=== PATIENT | female | born 1975 | race Caucasian/White ===

== ENCOUNTER 2018-05-26 18:56 | Inpatient (IN) ==
[2018-05-26] MEDS ORDERED: 0.9 % Sodium Chloride 1,000 ML IVC ONE (19:49)
[2018-05-26] MEDS ORDERED: *HR* Morphine 2 MG/ML SYRINGE IVP ONE (20:31)
--- NOTE | 2018-05-26 20:32 | Emergency Department Note ---
Disposition Clinical Impression: Elevated bilirubin Abdominal pain Qualifiers: Abdominal location: generalized Qualified Code(s): R10.84 - Generalized abdominal pain Ascites Qualifiers: Ascites type: other type Qualified Code(s): R18.8 - Other ascites Disposition: Admitted As Inpatient Condition: Good Referrals: Sonny Velazco DO [Primary Care Provider] - Forms: ED Satisfaction Letter, Work/School Release Time of Disposition: 01:13 General Adult HPI - General Chief complaint: ED Abdominal Pain Stated complaint: ABD Fluid ,Vomiting,Diahrrea Time Seen by Provider: 05/26/18 19:49 Source: patient Limitations: no limitations Nursing Notes Reviewed: Yes Vital Signs Reviewed: Yes - History of Present Illness HPI Narrative: I have reperformed and reviewed the history documented by the medical student, and I confirm its accuracy except as noted below. Ms. Lynn is a 43 yo F with a past history of excessive ETOH use and gastric bypass presents with 2-3 month of painless jaundice with intermittent N/V and 4 days of abd pain and distension. She states that she was unaware that she was jaundice. States that she never looked in the year. The mother is at bedside reporting that she has been jaundiced for several months. Patient states that her abdominal pain did not start until recently. She describes the abd pain as diffuse in nature that worse with movement and inspiration. She states that for the last month nearly every attempt to take PO food or liquid is followed by N/ V. Additional symptoms include a productive cough that produces green mucus, subjective fevers and lightheadedness. She states that her urine output has decreased and has become mildly constipated. She denies hematauria, hematachezia , diahrrea, and objective fevers. Additionally, she states that about a month ago she quit drinking cold turkey which led to a seizure. She states that she has been sober since. Pain Scale: 10 - Related Data Previous Rx's Medication Instructions Recorded Clotrimazole 1% CRM [Lotrimin 1%] 1 appl TP BID #1 tube 07/25/17 Allergies Allergy/AdvReac Type Severity Reaction Status Date / Time No Known Allergies Allergy Verified 07/25/17 10:49 All systems ED: reviewed and negative except as stated. Review of Systems: As Per HPI Constitutional: Reports: fever (Subjective), chills ENT ED: Denies: congestion Cardiovascular: Denies: chest pain Respiratory: Denies: cough, dyspnea Gastrointestinal: Reports: abdominal pain, nausea, vomiting. Denies: diarrhea, hematemesis, melena, hematochezia Genitourinary: Reports: frequency (Decreased). Denies: urgency, hematuria Musculoskeletal: Denies: back pain, neck pain Integumentary: Denies: rash Neurological: Reports: weakness. Denies: headache Past Medical History - Past Medical History Attestation: Yes The following information was validated with the patient. Medical history: Reports: seizures Surgical history: Reports: non-contributory Psychiatric history: Reports: anxiety - Social History Smoking Status: Current every day smoker Alcohol use: Reports: occasionally Drug use: Reports: none Physical Exam - General Limitations: no limitations General appearance: alert, in no apparent distress - Head Head exam: atraumatic, normocephalic, normal inspection - Eye Eye exam: Present: normal appearance, PERRL, EOMI, scleral icterus. Absent: conjunctival injection - ENT ENT exam: normal exam, normal oropharynx, mucous membranes moist - Neck Neck exam: Present: normal inspection, full ROM, trachea midline - Chest Chest inspection: Present: normal inspection, symmetric chest wall rise. Absent : tenderness - Respiratory Respiratory exam: Present: normal lung sounds bilaterally. Absent: respiratory distress, accessory muscle use - Cardiovascular Cardiovascular exam: Present: normal rhythm, tachycardia, normal heart sounds - Abdominal Exam Abdominal exam: Present: soft, tenderness (Develop an IO), distention, guarding , organomegaly (Hepatomegaly), other (Present fluid wave). Absent: rigidity - Extremities Exam Extremities exam: Present: normal inspection, full ROM, normal capillary refill. Absent: tenderness, pedal edema - Back Exam Back exam: Present: normal inspection, full ROM. Absent: tenderness - Neurological Exam Neurological exam: Present: alert, oriented X3 - Psychiatric Psychiatric exam: Present: normal affect, normal mood - Skin Skin exam: Present: warm, dry, intact, other (Jaundiced). Absent: rash, cyanosis Course Course Narrative: Female patient is grossly jaundiced. She states that she did not realize that she was jaundiced that she never looks in the mirror. Mother is at bedside stating that the patient is a heavy drinker. She states that she then she has been jaundiced for the past 2-3 months. Patient states that she has an abdominal pain. Patient's abdomen is distended and rounded. It is not peritoneal however she does have pain to palpation. Not rigid. She does have a fluid wave present. On bedside ultrasound patient did have a enlarged liver. Common bile duct was within normal limits. We did send patient for an initial upper right upper quadrant ultrasound however due to extensive bowel gas her pancreas was not visualized. We ended up getting a CT of patient's abdomen. This was also unable to visualize the pancreas. Patient does have a moderate amount of ascites and subcapsular fluid to her liver area. She is not febrile while here. She does have an elevated white blood cell count elevated lactic acid. She was provided with a liter of fluid. We did admit patient to the hospitalist who requested an ammonia level. We have ordered this as well. - Reevaluation(s) Reevaluation #1: Patient's mother left the room. She states that while the patient was on ultrasound she did find a gallon bottle of vodka in her purse. We have had security remove this. It truly was a gallon bottle of vodka. Time: 23:23 (\) Vital Signs Temperature 98.4 F 05/26/18 19:27 Pulse Rate 136 05/26/18 19:27 Respiratory Rate 20 05/26/18 19:27 Blood Pressure 104/71 05/26/18 19:27 O2 Sat by Pulse Oximetry 100 05/26/18 19:27 Temperature 98.4 F 05/26/18 19:27 Pulse Rate 114 05/27/18 00:01 Respiratory Rate 14 05/27/18 00:01 Blood Pressure 121/97 05/27/18 00:01 O2 Sat by Pulse Oximetry 100 05/27/18 00:01 Oxygen Delivery Oxygen Delivery Room Air Medical Decision Making - Medical Records Medical records reviewed: Yes I reviewed the patient's medical records. - Lab Data Lab results reviewed: Yes I reviewed the patient's lab results. Result diagrams: 05/26/18 20:42 05/26/18 20:42 Lab Results 05/26/18 05/26/18 05/26/18 Range/Units 20:42 20:42 20:42 WBC 21.9 H (4.3-11.1) K/mcL RBC 3.91 (3.82-4.97) M/mcL Hgb 12.7 (11.5-15.4) g/dL Hct 39.9 (35.3-44.9) % MCV 102.0 H (83.0-100.0) fL MCH 32.5 (28.0-33.3) pg MCHC 31.8 (31.6-35.5) g/dL RDW 25.7 H (11.5-14.5) % Plt Count 296 (140-400) K/mcL MPV 10.1 (9.4-12.4) fL Immature Gran % 1.0 (0-4) % Seg Neutrophils % 82.1 % Lymphocytes % 7.5 % Monocytes % 8.6 % Eosinophils % 0.4 % Basophils % 0.4 % Neutrophils # 18.0 H (1.6-8.9) K/mcL Lymphocytes # 1.6 (0.6-4.6) K/mcL Monocytes # 1.9 H (0.0-1.3) K/mcL Eosinophils # 0.1 (0.0-0.6) K/mcL Basophils # 0.1 (0.0-0.2) K/mcL Nucleated RBCs/100 WBC 0.1 H (0) /100 WBC Reactive Lymphocytes Present A (Not Present) Smudge Cells Present A (Not Present) Toxic Granulation Present A (Not Present) Platelet Estimate Normal (Normal) Anisocytosis 2+ A (Not Present) Macrocytosis Present A (Not Present) PT 15.3 H (9.4-12.1) Seconds INR 1.4 APTT 34.2 (26.0-36.0) Seconds Sodium 131 L (136-145) mEq/L Potassium 3.0 L (3.5-5.1) mEq/L Chloride 97 L (98-107) mEq/L Carbon Dioxide 20 L (23-29) mEq/L BUN 3 L (6-20) mg/dL Creatinine 0.54 L (0.60-1.20) mg/dL Est GFR ( Amer) > 60 (> 60) Est GFR (Non-Af Amer) > 60 (> 60) BUN/Creatinine Ratio 6 (6-26) Glucose 112 H (70-105) mg/dL Calculated Osmolality 269 L (280-300) Lactic Acid (0.5-2.2) mmol/L Calcium 8.0 L (8.6-10.3) mg/dL Total Bilirubin 14.5 H (0.3-1.0) mg/dL Direct Bilirubin 9.2 H (0.0-0.2) mg/dL Indirect Bilirubin 5.3 H (0.0-1.2) mg/dL AST 186 H (13-39) Units/L ALT 63 H (7-52) Units/L Alkaline Phosphatase 318 H (34-104) Units/L Serum Total Protein 5.8 L (6.4-8.9) g/dL Albumin 2.5 L (3.5-5.7) g/dL Globulin 3.3 (2.4-3.5) g/dL Albumin/Globulin Ratio 0.8 L (1.1-2.2) Lipase 60 (11-82) Units/L Ur Specimen Adequacy Urine Color (Yellow) Urine Clarity (Clear) Urine pH Ur Specific [place] Urine Protein Urine Glucose (UA) Urine Ketones Urine Blood Urine Nitrite Urine Bilirubin Urine Urobilinogen Ur Leukocyte Esterase Urine Microscopic RBC (0-3) per hpf Urine Microscopic WBC (0-3) per hpf Ur Squamous Epith Cells (None-Few) per lpf Urine Bacteria (None-Few) per hpf Hyaline Casts (None-Few) per lpf Urine Mucus (Few) Urine Trichomonas (None Seen) Ur Culture Indicated? (NO) Urine Test (Negative) Hepatitis A IgM Ab (Nonreactive) Hep Bs Antigen (Nonreactive) Hep B Core IgM Ab (Nonreactive) Hepatitis C Ab Screen (Nonreactive) 05/26/18 05/26/18 05/26/18 Range/Units 20:42 20:47 22:56 WBC (4.3-11.1) K/mcL RBC (3.82-4.97) M/mcL Hgb (11.5-15.4) g/dL Hct (35.3-44.9) % MCV (83.0-100.0) fL MCH (28.0-33.3) pg MCHC (31.6-35.5) g/dL RDW (11.5-14.5) % Plt Count (140-400) K/mcL MPV (9.4-12.4) fL Immature Gran % (0-4) % Seg Neutrophils % % Lymphocytes % % Monocytes % % Eosinophils % % Basophils % % Neutrophils # (1.6-8.9) K/mcL Lymphocytes # (0.6-4.6) K/mcL Monocytes # (0.0-1.3) K/mcL Eosinophils # (0.0-0.6) K/mcL Basophils # (0.0-0.2) K/mcL Nucleated RBCs/100 WBC (0) /100 WBC Reactive Lymphocytes (Not Present) Smudge Cells (Not Present) Toxic Granulation (Not Present) Platelet Estimate (Normal) Anisocytosis (Not Present) Macrocytosis (Not Present) PT (9.4-12.1) Seconds INR APTT (26.0-36.0) Seconds Sodium (136-145) mEq/L Potassium (3.5-5.1) mEq/L Chloride (98-107) mEq/L Carbon Dioxide (23-29) mEq/L BUN (6-20) mg/dL Creatinine (0.60-1.20) mg/dL Est GFR ( Amer) (> 60) Est GFR (Non-Af Amer) (> 60) BUN/Creatinine Ratio (6-26) Glucose (70-105) mg/dL Calculated Osmolality (280-300) Lactic Acid 6.7 H* (0.5-2.2) mmol/L Calcium (8.6-10.3) mg/dL Total Bilirubin (0.3-1.0) mg/dL Direct Bilirubin (0.0-0.2) mg/dL Indirect Bilirubin (0.0-1.2) mg/dL AST (13-39) Units/L ALT (7-52) Units/L Alkaline Phosphatase (34-104) Units/L Serum Total Protein (6.4-8.9) g/dL Albumin (3.5-5.7) g/dL Globulin (2.4-3.5) g/dL Albumin/Globulin Ratio (1.1-2.2) Lipase (11-82) Units/L Ur Specimen Adequacy See below A Urine Color [place] A (Yellow) Urine Clarity Cloudy A (Clear) Urine pH TNP Ur Specific [place] TNP Urine Protein TNP Urine Glucose (UA) TNP Urine Ketones TNP Urine Blood TNP Urine Nitrite TNP Urine Bilirubin TNP Urine Urobilinogen TNP Ur Leukocyte Esterase TNP Urine Microscopic RBC 30-50 H (0-3) per hpf Urine Microscopic WBC 50-100 H (0-3) per hpf Ur Squamous Epith Cells Many H (None-Few) per lpf Urine Bacteria Many H (None-Few) per hpf Hyaline Casts None Seen (None-Few) per lpf Urine Mucus Few (Few) Urine Trichomonas Present A (None Seen) Ur Culture Indicated? NO (NO) Urine Test (Negative) Hepatitis A IgM Ab Nonreactive (Nonreactive) Hep Bs Antigen Nonreactive (Nonreactive) Hep B Core IgM Ab Nonreactive (Nonreactive) Hepatitis C Ab Screen Nonreactive (Nonreactive) 05/26/18 Range/Units 22:56 WBC (4.3-11.1) K/mcL RBC (3.82-4.97) M/mcL Hgb (11.5-15.4) g/dL Hct (35.3-44.9) % MCV (83.0-100.0) fL MCH (28.0-33.3) pg MCHC (31.6-35.5) g/dL RDW (11.5-14.5) % Plt Count (140-400) K/mcL MPV (9.4-12.4) fL Immature Gran % (0-4) % Seg Neutrophils % % Lymphocytes % % Monocytes % % Eosinophils % % Basophils % % Neutrophils # (1.6-8.9) K/mcL Lymphocytes # (0.6-4.6) K/mcL Monocytes # (0.0-1.3) K/mcL Eosinophils # (0.0-0.6) K/mcL Basophils # (0.0-0.2) K/mcL Nucleated RBCs/100 WBC (0) /100 WBC Reactive Lymphocytes (Not Present) Smudge Cells (Not Present) Toxic Granulation (Not Present) Platelet Estimate (Normal) Anisocytosis (Not Present) Macrocytosis (Not Present) PT (9.4-12.1) Seconds INR APTT (26.0-36.0) Seconds Sodium (136-145) mEq/L Potassium (3.5-5.1) mEq/L Chloride (98-107) mEq/L Carbon Dioxide (23-29) mEq/L BUN (6-20) mg/dL Creatinine (0.60-1.20) mg/dL Est GFR ( Amer) (> 60) Est GFR (Non-Af Amer) (> 60) BUN/Creatinine Ratio (6-26) Glucose (70-105) mg/dL Calculated Osmolality (280-300) Lactic Acid (0.5-2.2) mmol/L Calcium (8.6-10.3) mg/dL Total Bilirubin (0.3-1.0) mg/dL Direct Bilirubin (0.0-0.2) mg/dL Indirect Bilirubin (0.0-1.2) mg/dL AST (13-39) Units/L ALT (7-52) Units/L Alkaline Phosphatase (34-104) Units/L Serum Total Protein (6.4-8.9) g/dL Albumin (3.5-5.7) g/dL Globulin (2.4-3.5) g/dL Albumin/Globulin Ratio (1.1-2.2) Lipase (11-82) Units/L Ur Specimen Adequacy Urine Color (Yellow) Urine Clarity (Clear) Urine pH Ur Specific [place] Urine Protein Urine Glucose (UA) Urine Ketones Urine Blood Urine Nitrite Urine Bilirubin Urine Urobilinogen Ur Leukocyte Esterase Urine Microscopic RBC (0-3) per hpf Urine Microscopic WBC (0-3) per hpf Ur Squamous Epith Cells (None-Few) per lpf Urine Bacteria (None-Few) per hpf Hyaline Casts (None-Few) per lpf Urine Mucus (Few) Urine Trichomonas (None Seen) Ur Culture Indicated? (NO) Urine Test Negative (Negative) Hepatitis A IgM Ab (Nonreactive) Hep Bs Antigen (Nonreactive) Hep B Core IgM Ab (Nonreactive) Hepatitis C Ab Screen (Nonreactive) - Radiology Data Radiology results reviewed: Yes I reviewed the patient's radiology results. Gallbladder Ultrasound 05/26/18 19:57 IMPRESSION: 1. Fatty liver versus diffuse hepatocellular disease with right upper quadrant ascites. 2. No cholelithiasis or sonographic evidence for acute cholecystitis. 3. Nonvisualization of the pancreas. D/ / Austin Malik MD / Austin Malik MD Interpreting Provider: Austin Malik MD Chest X-Ray 05/26/18 20:17 IMPRESSION: No acute abnormality. D/ / Chino Trevino MD / Chino Trevino MD Interpreting Provider: Chino Trevino MD Abdomen/Pelvis CT 05/26/18 21:19 IMPRESSION: Moderate volume ascites. Gastroplasty changes. Hepatic steatosis. D/ / Manav Dobbins / Manav Dobbins Interpreting Provider: Manav Dobbins - EKG Data EKG #1 EKG attestation: Yes I reviewed and interpreted this EKG. EKG results narrative: Sinus tachycardia at a rate of 110. RI interval is 1:30. QRS duration is 88. QT is 367. QTC is 497. No signs of acute ischemia. Patient does have flattened T waves. No significant change from previous EKG dated 04/09/2018.
[2018-05-26 20:55] LABS: Basophils # 0.1 K/mcL (0.0-0.2); Basophils % 0.4 %; Eosinophils # 0.1 K/mcL (0.0-0.6); Eosinophils % 0.4 %; Hematocrit 39.9 % (35.3-44.9); Hemoglobin 12.7 g/dL (11.5-15.4); Lymphocytes % 7.5 %; Mean Corpuscular HGB Conc 31.8 g/dL (31.6-35.5); Mean Corpuscular Hemoglobin 32.5 pg (28.0-33.3); Mean Platelet Volume 10.1 fL (9.4-12.4); Monocytes # 1.9 K/mcL (0.0-1.3); Monocytes % 8.6 %; Nucleated Red Blood Cells 0.1 /100 WBC (0); Platelet Count 296 K/mcL (140-400); Red Blood Count 3.91 M/mcL (3.82-4.97); Red Cell Distribution Width 25.7 % (11.5-14.5); Segmented Neutrophils % 82.1 %
[2018-05-26 21:01] LABS: INR 1.4; Prothrombin Time 15.3 Seconds (9.4-12.1)
[2018-05-26 21:02] LABS: Lymphocytes # 1.6 K/mcL (0.6-4.6)
[2018-05-26 21:03] LABS: Activated Partial Thrombo Time 34.2 Seconds (26.0-36.0)
[2018-05-26 21:18] LABS: Anisocytosis 2+ (Not Present); Macrocytosis Present (Not Present); Platelet Estimate Normal (Normal); Reactive Lymphocytes Present (Not Present); Smudge Cells Present (Not Present); Toxic Granulation Present (Not Present)
[2018-05-26 21:25] LABS: Alanine Aminotransferase 63 Units/L (7-52); Albumin 2.5 g/dL (3.5-5.7); Albumin/Globulin Ratio 0.8 (1.1-2.2); Alkaline Phosphatase 318 Units/L (34-104); Aspartate Amino Transferase 186 Units/L (13-39); BUN/Creatinine Ratio 6 (6-26); Bilirubin,Direct 9.2 mg/dL (0.0-0.2); Bilirubin,Indirect 5.3 mg/dL (0.0-1.2); Bilirubin,Total 14.5 mg/dL (0.3-1.0); Blood Urea Nitrogen 3 mg/dL (6-20); Carbon Dioxide 20 mEq/L (23-29); Chloride 97 mEq/L (98-107); Globulin 3.3 g/dL (2.4-3.5); Glucose 112 mg/dL (70-105); Lipase 60 Units/L (11-82); Osmolality,Calculated 269 (280-300); Sodium 131 mEq/L (136-145); Total Protein 5.8 g/dL (6.4-8.9); eGFR For Non-African Americans > 60 (> 60)
[2018-05-26] MEDS ORDERED: Potassium Chloride Elixir 20 MEQ/15 ML UDC PO ONE (21:29)
[2018-05-26 21:38] LABS: Hepatitis A Antibody IgM Nonreactive (Nonreactive); Hepatitis B Core IgM Nonreactive (Nonreactive); Hepatitis B Surface Antigen Nonreactive (Nonreactive); Hepatitis C Virus Antibody Nonreactive (Nonreactive)
[2018-05-26] MEDS ORDERED: Ondansetron 4 MG/2 ML VIAL ONE (22:01)
[2018-05-26] MEDS ORDERED: *HR* Promethazine 25 MG/ML VIAL IVP ONE (22:03)
[2018-05-26 23:18] LABS: Clarity,Urine Cloudy (Clear); Color,Urine Amber (Yellow)
[2018-05-26 23:22] LABS: Bacteria,Urine Many per hpf (None-Few); RBC,Urine 30-50 per hpf (0-3); Squamous Epithelial Cell,Urine Many per lpf (None-Few); WBC,Urine 50-100 per hpf (0-3)
[2018-05-26 23:23] LABS: Hyaline Casts,Urine None Seen per lpf (None-Few); Mucus,Urine Few (Few); Trichomonas,Urine Present (None Seen)
--- NOTE | 2018-05-27 00:31 | Emergency Department Note ---
Disposition Clinical Impression: Elevated bilirubin Abdominal pain Qualifiers: Abdominal location: generalized Qualified Code(s): R10.84 - Generalized abdominal pain Ascites Qualifiers: Ascites type: due to alcoholic hepatitis Qualified Code(s): K70.11 - Alcoholic hepatitis with ascites Disposition: Admitted As Inpatient Condition: Good General Adult HPI - General Chief complaint: ED Abdominal Pain Stated complaint: ABD Fluid ,Vomiting,Diahrrea Time Seen by Provider: 05/26/18 19:49 Source: patient Limitations: no limitations - History of Present Illness Pain Scale: 10 - Related Data Home Medications Medication Instructions Recorded Confirmed Albuterol Sulfate [Proair Hfa] 2 puff IH Q4-6H PRN 05/27/18 05/27/18 Previous Rx's Medication Instructions Recorded Furosemide [Lasix] 20 mg PO BIDDIURETIC #60 tab 06/01/18 Spironolactone [Aldactone] 25 mg PO DAILY #30 tablet 06/01/18 Allergies Allergy/AdvReac Type Severity Reaction Status Date / Time No Known Allergies Allergy Verified 05/27/18 08:03 Constitutional: Reports: fever (Subjective), chills ENT ED: Denies: congestion Cardiovascular: Denies: chest pain Respiratory: Denies: cough, dyspnea Past Medical History - Past Medical History Medical history: Reports: seizures Surgical history: Reports: non-contributory Psychiatric history: Reports: anxiety - Social History Smoking Status: Current every day smoker Alcohol use: Reports: occasionally Drug use: Reports: none Physical Exam - General Limitations: no limitations General appearance: alert, in no apparent distress Course Vital Signs Temperature 98.4 F 05/26/18 19:27 Pulse Rate 136 05/26/18 19:27 Respiratory Rate 20 05/26/18 19:27 Blood Pressure 104/71 05/26/18 19:27 O2 Sat by Pulse Oximetry 100 05/26/18 19:27 Temperature 97.5 F L 06/04/18 06:49 Pulse Rate 105 06/04/18 06:49 Respiratory Rate 14 06/04/18 06:49 Blood Pressure 93/62 06/04/18 06:49 O2 Sat by Pulse Oximetry 100 06/04/18 06:49 Oxygen Delivery Oxygen Delivery Room Air Medical Decision Making - Lab Data Result diagrams: 06/04/18 05:21 06/04/18 05:21 Lab Results 05/26/18 05/26/18 05/26/18 Range/Units 20:42 20:42 20:42 WBC 21.9 H (4.3-11.1) K/mcL RBC 3.91 (3.82-4.97) M/mcL Hgb 12.7 (11.5-15.4) g/dL Hct 39.9 (35.3-44.9) % MCV 102.0 H (83.0-100.0) fL MCH 32.5 (28.0-33.3) pg MCHC 31.8 (31.6-35.5) g/dL RDW 25.7 H (11.5-14.5) % Plt Count 296 (140-400) K/mcL MPV 10.1 (9.4-12.4) fL Immature Gran % 1.0 (0-4) % Seg Neutrophils % 82.1 % Lymphocytes % 7.5 % Monocytes % 8.6 % Eosinophils % 0.4 % Basophils % 0.4 % Neutrophils # 18.0 H (1.6-8.9) K/mcL Lymphocytes # 1.6 (0.6-4.6) K/mcL Monocytes # 1.9 H (0.0-1.3) K/mcL Eosinophils # 0.1 (0.0-0.6) K/mcL Basophils # 0.1 (0.0-0.2) K/mcL Nucleated RBCs/100 WBC 0.1 H (0) /100 WBC Reactive Lymphocytes Present A (Not Present) Smudge Cells Present A (Not Present) Toxic Granulation Present A (Not Present) Platelet Estimate Normal (Normal) Anisocytosis 2+ A (Not Present) Macrocytosis Present A (Not Present) PT 15.3 H (9.4-12.1) Seconds INR 1.4 APTT 34.2 (26.0-36.0) Seconds Sodium 131 L (136-145) mEq/L Potassium 3.0 L (3.5-5.1) mEq/L Chloride 97 L (98-107) mEq/L Carbon Dioxide 20 L (23-29) mEq/L BUN 3 L (6-20) mg/dL Creatinine 0.54 L (0.60-1.20) mg/dL Est GFR ( Amer) > 60 (> 60) Est GFR (Non-Af Amer) > 60 (> 60) BUN/Creatinine Ratio 6 (6-26) Glucose 112 H (70-105) mg/dL Calculated Osmolality 269 L (280-300) Lactic Acid (0.5-2.2) mmol/L Calcium 8.0 L (8.6-10.3) mg/dL Total Bilirubin 14.5 H (0.3-1.0) mg/dL Direct Bilirubin 9.2 H (0.0-0.2) mg/dL Indirect Bilirubin 5.3 H (0.0-1.2) mg/dL AST 186 H (13-39) Units/L ALT 63 H (7-52) Units/L Alkaline Phosphatase 318 H (34-104) Units/L Serum Total Protein 5.8 L (6.4-8.9) g/dL Albumin 2.5 L (3.5-5.7) g/dL Globulin 3.3 (2.4-3.5) g/dL Albumin/Globulin Ratio 0.8 L (1.1-2.2) Lipase 60 (11-82) Units/L Ur Specimen Adequacy Urine Color (Yellow) Urine Clarity (Clear) Urine pH Ur Specific [place] Urine Protein Urine Glucose (UA) Urine Ketones Urine Blood Urine Nitrite Urine Bilirubin Urine Urobilinogen Ur Leukocyte Esterase Urine Microscopic RBC (0-3) per hpf Urine Microscopic WBC (0-3) per hpf Ur Squamous Epith Cells (None-Few) per lpf Urine Bacteria (None-Few) per hpf Hyaline Casts (None-Few) per lpf Urine Mucus (Few) Urine Trichomonas (None Seen) Ur Culture Indicated? (NO) Urine Test (Negative) Hepatitis A IgM Ab (Nonreactive) Hep Bs Antigen (Nonreactive) Hep B Core IgM Ab (Nonreactive) Hepatitis C Ab Screen (Nonreactive) 05/26/18 05/26/18 05/26/18 Range/Units 20:42 20:47 22:56 WBC (4.3-11.1) K/mcL RBC (3.82-4.97) M/mcL Hgb (11.5-15.4) g/dL Hct (35.3-44.9) % MCV (83.0-100.0) fL MCH (28.0-33.3) pg MCHC (31.6-35.5) g/dL RDW (11.5-14.5) % Plt Count (140-400) K/mcL MPV (9.4-12.4) fL Immature Gran % (0-4) % Seg Neutrophils % % Lymphocytes % % Monocytes % % Eosinophils % % Basophils % % Neutrophils # (1.6-8.9) K/mcL Lymphocytes # (0.6-4.6) K/mcL Monocytes # (0.0-1.3) K/mcL Eosinophils # (0.0-0.6) K/mcL Basophils # (0.0-0.2) K/mcL Nucleated RBCs/100 WBC (0) /100 WBC Reactive Lymphocytes (Not Present) Smudge Cells (Not Present) Toxic Granulation (Not Present) Platelet Estimate (Normal) Anisocytosis (Not Present) Macrocytosis (Not Present) PT (9.4-12.1) Seconds INR APTT (26.0-36.0) Seconds Sodium (136-145) mEq/L Potassium (3.5-5.1) mEq/L Chloride (98-107) mEq/L Carbon Dioxide (23-29) mEq/L BUN (6-20) mg/dL Creatinine (0.60-1.20) mg/dL Est GFR ( Amer) (> 60) Est GFR (Non-Af Amer) (> 60) BUN/Creatinine Ratio (6-26) Glucose (70-105) mg/dL Calculated Osmolality (280-300) Lactic Acid 6.7 H* (0.5-2.2) mmol/L Calcium (8.6-10.3) mg/dL Total Bilirubin (0.3-1.0) mg/dL Direct Bilirubin (0.0-0.2) mg/dL Indirect Bilirubin (0.0-1.2) mg/dL AST (13-39) Units/L ALT (7-52) Units/L Alkaline Phosphatase (34-104) Units/L Serum Total Protein (6.4-8.9) g/dL Albumin (3.5-5.7) g/dL Globulin (2.4-3.5) g/dL Albumin/Globulin Ratio (1.1-2.2) Lipase (11-82) Units/L Ur Specimen Adequacy See below A Urine Color [place] A (Yellow) Urine Clarity Cloudy A (Clear) Urine pH TNP Ur Specific [place] TNP Urine Protein TNP Urine Glucose (UA) TNP Urine Ketones TNP Urine Blood TNP Urine Nitrite TNP Urine Bilirubin TNP Urine Urobilinogen TNP Ur Leukocyte Esterase TNP Urine Microscopic RBC 30-50 H (0-3) per hpf Urine Microscopic WBC 50-100 H (0-3) per hpf Ur Squamous Epith Cells Many H (None-Few) per lpf Urine Bacteria Many H (None-Few) per hpf Hyaline Casts None Seen (None-Few) per lpf Urine Mucus Few (Few) Urine Trichomonas Present A (None Seen) Ur Culture Indicated? NO (NO) Urine Test (Negative) Hepatitis A IgM Ab Nonreactive (Nonreactive) Hep Bs Antigen Nonreactive (Nonreactive) Hep B Core IgM Ab Nonreactive (Nonreactive) Hepatitis C Ab Screen Nonreactive (Nonreactive) 05/26/18 05/27/18 Range/Units 22:56 00:36 WBC (4.3-11.1) K/mcL RBC (3.82-4.97) M/mcL Hgb (11.5-15.4) g/dL Hct (35.3-44.9) % MCV (83.0-100.0) fL MCH (28.0-33.3) pg MCHC (31.6-35.5) g/dL RDW (11.5-14.5) % Plt Count (140-400) K/mcL MPV (9.4-12.4) fL Immature Gran % (0-4) % Seg Neutrophils % % Lymphocytes % % Monocytes % % Eosinophils % % Basophils % % Neutrophils # (1.6-8.9) K/mcL Lymphocytes # (0.6-4.6) K/mcL Monocytes # (0.0-1.3) K/mcL Eosinophils # (0.0-0.6) K/mcL Basophils # (0.0-0.2) K/mcL Nucleated RBCs/100 WBC (0) /100 WBC Reactive Lymphocytes (Not Present) Smudge Cells (Not Present) Toxic Granulation (Not Present) Platelet Estimate (Normal) Anisocytosis (Not Present) Macrocytosis (Not Present) PT (9.4-12.1) Seconds INR APTT (26.0-36.0) Seconds Sodium (136-145) mEq/L Potassium (3.5-5.1) mEq/L Chloride (98-107) mEq/L Carbon Dioxide (23-29) mEq/L BUN (6-20) mg/dL Creatinine (0.60-1.20) mg/dL Est GFR ( Amer) (> 60) Est GFR (Non-Af Amer) (> 60) BUN/Creatinine Ratio (6-26) Glucose (70-105) mg/dL Calculated Osmolality (280-300) Lactic Acid 6.8 H* (0.5-2.2) mmol/L Calcium (8.6-10.3) mg/dL Total Bilirubin (0.3-1.0) mg/dL Direct Bilirubin (0.0-0.2) mg/dL Indirect Bilirubin (0.0-1.2) mg/dL AST (13-39) Units/L ALT (7-52) Units/L Alkaline Phosphatase (34-104) Units/L Serum Total Protein (6.4-8.9) g/dL Albumin (3.5-5.7) g/dL Globulin (2.4-3.5) g/dL Albumin/Globulin Ratio (1.1-2.2) Lipase (11-82) Units/L Ur Specimen Adequacy Urine Color (Yellow) Urine Clarity (Clear) Urine pH Ur Specific [place] Urine Protein Urine Glucose (UA) Urine Ketones Urine Blood Urine Nitrite Urine Bilirubin Urine Urobilinogen Ur Leukocyte Esterase Urine Microscopic RBC (0-3) per hpf Urine Microscopic WBC (0-3) per hpf Ur Squamous Epith Cells (None-Few) per lpf Urine Bacteria (None-Few) per hpf Hyaline Casts (None-Few) per lpf Urine Mucus (Few) Urine Trichomonas (None Seen) Ur Culture Indicated? (NO) Urine Test Negative (Negative) Hepatitis A IgM Ab (Nonreactive) Hep Bs Antigen (Nonreactive) Hep B Core IgM Ab (Nonreactive) Hepatitis C Ab Screen (Nonreactive) Attestation Statement - Attestation Attestation: I examined this patient and my medical decision-making was reviewed with the Resident Physician. I agree with the documented findings, disposition and treatment plan as described except to the extent set forth below. Jaundice originally painless, now with pain. Significant alcohol abuse history. Non-toxic in appearance, mental status normal, converses normally with me. No hypotension. Afebrile here, no infection suspected. I do not suspect SBP. DDx includes choledocholithiasis, alcoholic hepatitis, pancreatic CA. CT not diagnostic. Case reviewed by me with Dr. Davis. He will see pt in consult.
--- NOTE | 2018-05-27 00:49 | Internal Med History&Physical ---
<Ramsey Manriquez - Last Filed: 05/27/18 02:02> Date of Encounter: 05/27/18 Time of Encounter: 00:39 Internal Medicine - H&P: HPI Chief complaint: Abd pain Admitted From: Emergency Dept History of present illness: Ms. Lynn is a 43 year old female with a PMH of gastric bypass surgery, TROY, psoriasis, alcohol withdrawal seizures, alcohol dependence, and tobacco dependence who presented to the ED c/o diffuse abdominal pain, nausea, and vomiting for the past 3 days. Abdominal pain is worse with movement, breathing, and food and liquid intake. Patient reports decreased urination and constipation due to lack of hydration. Associated symptoms include abdominal distension, itching, productive cough with clear phelgm, subjective fevers, and lightheadedness. Family reports increasing jaundiced for the past 3 months. Patient denies hematauria, hematachezia, diarrhea, greasy stools, or change in mental status. She is on house arrest and reports having an alcohol withdrawal seizure one month ago after she was arrested for drunk driving and hitting a mailbox. Patient is reports usually drinking 1-2 glasses of liquor daily and her last drink was this morning. Patient's mother reported finding a gallon bottle of vodka in her daughter's purse while the patient was having her RUQ ultrasound performed, which was removed by security. Past Med Surg Social Fam HX - Past Medical History Medical history: seizures Additional medical history: psoriasis, TROY Psychiatric history: anxiety - Past Surgical History Surgical History: other, bariatric surgery Additional surgical history: gastric bypass 2009, uterine mass and polyp removal 2016 - Social History Smoking Status: Current every day smoker Alcohol use: occasionally, recent Drug use: none Occupational status: other (legal support assistant) Current living situation: Home, With Family Activity Level: Independent ambulation - Family History Father Hx Family Cardiac Disorders: Yes (HTN) Mother Hx Family Cardiac Disorders: Yes (Uterine (precancerous)) Sister Hx Family Neurologic Disorders: Yes ( epilepsy) Hx Family Medical Disorders: Yes (endometriosis, back problem) Grandfather Hx Family Cancer: Yes (Lymphoma, liver CA) Paternal Name: Uncle Hx Family Cancer: Yes (Liver cancer) Internal Medicine - H&P: Meds Clotrimazole 1% CRM [Lotrimin 1%] 1 appl TP BID #1 tube 07/25/17 [Rx] 3 Allergy/AdvReac Type Severity Reaction Status Date / Time No Known Allergies Allergy Verified 07/25/17 10:49 All Systems PM: A 10-system review of systems was performed and is negative for pertinent findings except as documented above in the HPI. - Constitutional Constitutional: anorexia, chills, fatigue, fever(s), lethargy, weakness, weight gain, no weight loss - EENT Eyes: blurry vision, change in vision (chronic), other visual disturbances Nose, mouth and throat: dry mouth, no nasal congestion, no sinus pain, no sore throat - Cardiovascular Cardiovascular ROS IM: dyspnea, lightheadedness, palpitations, no chest pain, no edema - Respiratory Respiratory: cough, dyspnea, excessive phlegm production, no chest congestion - Gastrointestinal Gastrointestinal: abdominal pain, bloating, change in bowel habits, constipation , nausea, vomiting, no diarrhea, no hematemesis, no hematochezia, no melena - Genitourinary Genitourinary: no dysuria, no flank pain, no hematuria, no nocturia, no urinary frequency, no urinary urgency - Musculoskeletal Musculoskeletal ROS IM: no numbness, no tingling - Integumentary Integumentary IM: rash, jaundice - Neurological Neurological ROS: dizziness, weakness, no confusion, no convulsions, no headache (s), no numbness, no tingling, no tremor(s) - Psychiatric Psychiatric: anxiety, no depression - Endocrine Endocrine IM: fatigue, no polydipsia, no polyphagia, no polyuria - Hematologic/Lymphatic Hematologic/Lymphatic: no easy bleeding, no easy bruising - Constitutional Vitals: Temp Pulse Resp BP Pulse Ox 98.4 F 114 14 121/97 100 05/26/18 19:27 05/27/18 00:01 05/27/18 00:01 05/27/18 00:01 05/27/18 00:01 General appearance: Present: cooperative, A&O X 3, pleasant, no acute distress, answers questions appropriately Exam: pleasant, conversant, singultus - Head Head exam: Present: atraumatic, normocephalic - Eye Eye exam: Present: EOMI - Expanded Eye Exam sclera: bilateral: icterus - ENT ENT exam: Present: mucous membranes dry, normal oropharynx - Neck Neck exam general surgery: Present: supple, trachea midline. Absent: lymphadenopathy - Respiratory Respiratory exam: Present: CTAB. Absent: accessory muscle use, rales, respiratory distress, rhonchi, wheezes - Cardiovascular Cardiovascular exam: Present: RRR, +S1, +S2, tachycardia. Absent: diastolic murmur, gallop, rubs, systolic murmur - GI/Abdominal GI/Abdominal exam: Present: normal bowel sounds, soft, tenderness (diffuse, worse RUQ), no peritoneal signs. Absent: distended, guarding - Extremities Exam Extremities exam: Present: warm, radial pulses palpable and symmetrical. Absent : calf tenderness, cyanotic, pedal edema Additional comments: House arrest bracelet on RLE - Back Exam Back exam: Absent: CVA tenderness (L), CVA tenderness (R), paraspinal tenderness , tenderness - Neurological Exam Neurological exam: Present: alert, CN II-XII intact, oriented X3, no focal deficits. Absent: altered, motor sensory deficit, facial droop, speech deficit - Psychiatric Psychiatric exam: Present: normal affect, normal mood - Skin Skin exam: Present: dry, intact. Absent: normal color (jaundice, multiple psoriasis plaques over legs, scalp) Internal Med - H&P Results - Labs CBC & Chem 7: 05/26/18 20:42 05/26/18 20:42 Labs: Short CBC 05/26/18 Range/Units 20:42 WBC 21.9 H (4.3-11.1) K/mcL Hgb 12.7 (11.5-15.4) g/dL Hct 39.9 (35.3-44.9) % Plt Count 296 (140-400) K/mcL Neutrophils # 18.0 H (1.6-8.9) K/mcL BMP 05/26/18 20:42 Sodium 131 L Potassium 3.0 L Chloride 97 L Carbon Dioxide 20 L BUN 3 L Creatinine 0.54 L Glucose 112 H Calcium 8.0 L Liver Function 05/26/18 Range/Units 20:42 Total Bilirubin 14.5 H (0.3-1.0) mg/dL Direct Bilirubin 9.2 H (0.0-0.2) mg/dL AST 186 H (13-39) Units/L ALT 63 H (7-52) Units/L Alkaline Phosphatase 318 H (34-104) Units/L Albumin 2.5 L (3.5-5.7) g/dL Urine 05/26/18 Range/Units 22:56 Urine Color [place] A (Yellow) Urine Clarity Cloudy A (Clear) Urine pH TNP Ur Specific [place] TNP Urine Protein TNP Urine Glucose (UA) TNP - EKG Data -: EKG Interpreted by Myself Rate: tachycardia (rate of 110. [place] interval is 1:30. QRS duration is 88. QT is 367. QTC is 497. Flattened T waves, No signs of acute ischemia.) - EKG Data Prior EKG available for review: yes When compared to previous EKG: there is no significant change - Impressions ITS Impressions Gallbladder Ultrasound 05/26/18 19:57 IMPRESSION: 1. Fatty liver versus diffuse hepatocellular disease with right upper quadrant ascites. 2. No cholelithiasis or sonographic evidence for acute cholecystitis. 3. Nonvisualization of the pancreas. D/ / Austin Malik MD / Austin Malik MD Interpreting Provider: Austin Malik MD Chest X-Ray 05/26/18 20:17 IMPRESSION: No acute abnormality. D/ / Chino Trevino MD / Chino Trevino MD Interpreting Provider: Chino Trevino MD Abdomen/Pelvis CT 05/26/18 21:19 IMPRESSION: Moderate volume ascites. Gastroplasty changes. Hepatic steatosis. D/ / Manav Dobbins / Manav Dobbins Interpreting Provider: Manav Dobbins - Assessment and plan (1) Obstructive jaundice Current Visit: Yes Status: Acute Assessment and plan: Patient with RUQ pain, ascites, jaundice, elevated bilirubin and LFTs, afebrile , tachycardia, leukocytosis WBC 21.9, Lactic acidosis 6.7 Differential diagnosis includes choledocholithiasis, alcoholic hepatitis, pancreatic CA, SBP Gallbladder ultrasound revealed fatty liver versus diffuse hepatocellular disease with right upper quadrant ascites. No cholelithiasis or sonographic evidence for acute cholecystitis. CT Abdomen/Pelvis revealed moderate volume ascites, gastroplasty changes, and hepatic steatosis. Started emperic Zosyn for possible SBP NPO for possible ERCP procedure in AM Continue analgesics and antiemetics GI consulted, ED physician discussed case with Dr. Davis (2) Severe sepsis Current Visit: Yes Status: Acute Assessment and plan: Patient met sepsis criteria with leukocytosis WBC 21.9, tachycardia HR 136, Lactic acidosis 6.7, and SBP as possible source of infection Repeat lactic acid level 6.8 Patient received sepsis IVF bolus in the ED Given current ascites and hypoalbuminemia, will give Albumin x1 and additional IVF Monitor strict I&Os Repeat UA due to cantamination/ large amount of squamous cells in previously collected sample Blood cultures pending Started empiric Zosyn for possible SBP Continue close monitoring (3) Increased ammonia level Current Visit: Yes Status: Acute Assessment and plan: Ammonia level 58, started Lactulose 30mg RC (4) Hypoalbuminemia Current Visit: Yes Status: Acute Assessment and plan: Albumin level 2.5 in the setting of poor nutrition, alcoholism, and history of gastric bypass surgery Patient has ascites, will give Albumin x1 and continue IVF for severe sepsis (5) Alcohol dependence Current Visit: Yes Status: Chronic Assessment and plan: Patient reports last drink was this morning. Patient's mother reported finding a gallon bottle of vodka in her daughter's purse while the patient was having her RUQ ultrasound performed, which was removed by security. Qualifiers: Substance use status: unspecified alcohol-induced disorder Qualified Code(s ): F10.29 - Alcohol dependence with unspecified alcohol-induced disorder (6) Alcohol withdrawal seizure Current Visit: No Status: Chronic Assessment and plan: Misael reports having a seizure one month ago due to alcohol withdrawal, alcohol level pending Continue Ativan per [facility] protocol Aspiration precautions Qualifiers: Complication of substance-induced condition: uncomplicated Qualified Code(s ): F10.230 - Alcohol dependence with withdrawal, uncomplicated (7) History of gastric bypass Current Visit: No Status: Chronic Assessment and plan: Patient has many dietary constraints since gastric bypass. Continue monitoring (8) Hypokalemia Current Visit: Yes Status: Acute Assessment and plan: Supplement potassium, Magnesium level pending Continue monitoring (9) Psoriasis Current Visit: Yes Status: Chronic Assessment and plan: Continue Betamethasone Dipropionate Cream Outpatient follow-up (10) TROY on CPAP Current Visit: Yes Status: Chronic Assessment and plan: Continue CPAP qhs as tolerated (11) Tobacco dependence Current Visit: Yes Status: Chronic Assessment and plan: Tobacco cessation (12) DVT prophylaxis Current Visit: Yes Status: Acute Assessment and plan: EPCDs - Time Spent With Patient Total time spent is greater than 50% in coordination of care (as documented) at patient's floor/unit and/or counseling patient: Sepsis Reassessment Note - Evaluation Current Stage of Sepsis: severe sepsis Possible Source of Sepsis: GI tract/intra-abdominal - Focused Exam Date of Encounter: 05/27/18 Time of Encounter: 02:00 Vital Signs: Vital Signs Resp BP 05/27/18 01:32 16 118/86 Respiratory Exam: Present: CTA bilaterally Cardiovascular Exam: Present: tachycardia Capillary Refill: < 2 seconds Peripheral Pulse Strength: 3+ normal Peripheral Pulse Location: Radial Skin Exam: normal turgor (jaundice) <Bala Krueger - Last Filed: 05/27/18 06:49> Date of Encounter: 05/27/18 Internal Medicine - H&P: HPI History of present illness: Ms. Lynn is a 43 year old female All Systems PM: A 10-system review of systems was performed and is negative for pertinent findings except as documented above in the HPI. - Constitutional Vitals: Temp Pulse Resp BP Pulse Ox 98.0 F 127 20 100/85 94 05/27/18 03:43 05/27/18 05:10 05/27/18 03:43 05/27/18 05:10 05/27/18 03:43 Internal Med - H&P Results - Labs CBC & Chem 7: 05/27/18 06:01 05/27/18 03:23 Labs: Short CBC 05/27/18 Range/Units 06:01 WBC 25.5 H (4.3-11.1) K/mcL Hgb 10.7 L D (11.5-15.4) g/dL Hct 34.2 L (35.3-44.9) % Plt Count 312 (140-400) K/mcL BMP 05/27/18 03:23 Sodium 132 L Potassium 3.7 Chloride 101 Carbon Dioxide 13 L BUN 3 L Creatinine 0.57 L Glucose 96 Calcium 7.7 L Liver Function 05/27/18 Range/Units 03:23 Total Bilirubin 14.7 H (0.3-1.0) mg/dL AST 184 H (13-39) Units/L ALT 59 H (7-52) Units/L Alkaline Phosphatase 298 H (34-104) Units/L Albumin 2.3 L (3.5-5.7) g/dL Urine 05/27/18 Range/Units 03:42 Urine Color Brown (Yellow) Urine Clarity Cloudy A (Clear) Urine pH 5.5 (5.0-8.0) pH Units Ur Specific [place] 1.026 H (1.010-1.025) Urine Protein 30 H (Neg-Trace) mg/dL Urine Glucose (UA) Normal (Normal) mg/dL - Time Spent With Patient Total time spent is greater than 50% in coordination of care (as documented) at patient's floor/unit and/or counseling patient: - Attending Attestation I examined this patient and my medical decision-making was reviewed with the Resident Physician. I agree with the documented findings, disposition and treatment plan as described except to the extent set forth below. Sepsis Reassessment Note - Focused Exam Vital Signs: Vital Signs Temp Pulse Resp BP Pulse Ox 05/27/18 05:10 127 100/85 05/27/18 04:55 126 92/79 05/27/18 04:40 125 108/78 05/27/18 04:25 126 96/84 05/27/18 04:20 124 97/82 05/27/18 03:43 98.0 F 125 20 99/88 94 05/27/18 02:10 98.4 F 129 18 121/98 97 05/27/18 01:32 16 118/86
[2018-05-27] MEDS ORDERED: *HR* LORazepam 2 MG/ML VIAL IVP PRN ×3 (01:23)
[2018-05-27] MEDS ORDERED: Naloxone 0.4 MG/ML INJ IVP PRN (01:23)
[2018-05-27] MEDS ORDERED: Acetaminophen 325 MG TABLET PO PRN (01:23)
[2018-05-27] MEDS ORDERED: Lactulose 200 GM/300 ML (for enema) RC ONE (02:12)
[2018-05-27] MEDS ORDERED: Albumin 25% 25gram/100mL 25 GM/100 ML IV.SOLN IVPB ONE (02:17)
[2018-05-27] MEDS ORDERED: 0.9 % Sodium Chloride 1,000 ML IVC ONE (02:28)
[2018-05-27] MEDS ORDERED: Lactulose 200 GM, Sodium Chloride IRRigation 700 ML RC ONE (02:30)
[2018-05-27] MEDS: Ondansetron 4 MG/2 ML VIAL IVP PRN ×3 (02:30→21:38)
[2018-05-27] MEDS ORDERED: 0.9 % Sodium Chloride 1,000 ML IVC SCH (02:30)
[2018-05-27] MEDS ORDERED: Ipratropium/Albuterol Neb 3 ML IH PRN (02:32)
[2018-05-27] MEDS: OXYCODONE Oral CONC 10 MG/0.5 ML ORAL.SYG SL PRN ×4 (03:15→23:31)
[2018-05-27 03:48] LABS: Bilirubin,Urine Large (Negative); Blood,Urine Negative (Negative); Glucose,Urine (UA) Normal (Normal); Ketones,Urine 15 mg/dL (Negative); Leukocyte Esterase,Urine Moderate (Negative); Nitrite,Urine Positive (Negative); PH,Urine 5.5 pH Units (5.0-8.0); Protein,Urine 30 mg/dL (Neg-Trace); Specific Gravity,Urine 1.026 (1.010-1.025); Urobilinogen,Urine Normal (Normal)
[2018-05-27 03:50] LABS: Bacteria,Urine Many per hpf (None-Few); RBC,Urine 15-30 per hpf (0-3); Squamous Epithelial Cell,Urine Many per lpf (None-Few); WBC,Urine 15-30 per hpf (0-3)
[2018-05-27 04:16] LABS: Clarity,Urine Cloudy (Clear); Color,Urine Brown (Yellow)
[2018-05-27 04:28] LABS: Hyaline Casts,Urine Moderate per lpf (None-Few)
[2018-05-27 04:48] LABS: Alanine Aminotransferase 59 Units/L (7-52); Albumin 2.3 g/dL (3.5-5.7); Albumin/Globulin Ratio 0.8 (1.1-2.2); Alkaline Phosphatase 298 Units/L (34-104); Aspartate Amino Transferase 184 Units/L (13-39); BUN/Creatinine Ratio 5 (6-26); Blood Urea Nitrogen 3 mg/dL (6-20); Calcium 7.7 mg/dL (8.6-10.3); Carbon Dioxide 13 mEq/L (23-29); Chloride 101 mEq/L (98-107); Chol/HDL Ratio 39.5 (0-4.9); Cholesterol 158 mg/dL (< 200); Ethanol 38 mg/dL (Less than 10); Glucose 96 mg/dL (70-105); HDL Cholesterol 4 mg/dL (40-59); LDL Cholesterol,Calculated 103 mg/dL (0-99); Magnesium 1.9 mg/dL (1.6-2.6); Osmolality,Calculated 270 (280-300); Phosphorous 2.9 mg/dL (2.7-4.5); Potassium 3.7 mEq/L (3.5-5.1); Sodium 132 mEq/L (136-145); Total Protein 5.3 g/dL (6.4-8.9); Triglycerides 256 mg/dL (< 150); eGFR For Non-African Americans > 60 (> 60)
[2018-05-27 05:41] LABS: Bilirubin,Total 14.7 mg/dL (0.3-1.0)
[2018-05-27] MEDS: Pantoprazole 40 MG VIAL IVP SCH ×2 (06:03→16:29)
[2018-05-27 06:36] LABS: Hematocrit 34.2 % (35.3-44.9); Hemoglobin 10.7 g/dL (11.5-15.4); Mean Corpuscular HGB Conc 31.3 g/dL (31.6-35.5); Mean Corpuscular Volume 102.4 fL (83.0-100.0); Mean Platelet Volume 10.5 fL (9.4-12.4); Nucleated Red Blood Cells 0.1 /100 WBC (0); Platelet Count 312 K/mcL (140-400); Red Blood Count 3.34 M/mcL (3.82-4.97); Red Cell Distribution Width 25.9 % (11.5-14.5)
[2018-05-27 06:49] LABS: Bilirubin,Direct 8.5 mg/dL (0.0-0.2); Bilirubin,Indirect 6.2 mg/dL (0.0-1.2)
--- NOTE | 2018-05-27 08:50 | Event Note ---
<Jonnathan Ly - Last Filed: 05/27/18 18:52> Date of Encounter: 05/27/18 Ms Lynn was admitted earlier today with abd pain and concern for SBP. Exam Alert Restless Abd tender diffusely. I/P 1. Abdominal pain r/o SBP 2. Cirrhosis Agree with assessment and plan as above and in H&P. <Yessenia Preston - Last Filed: 05/28/18 01:26> Date of Encounter: 05/28/18 Time of Encounter: 08:50 Interval History: Ms. Lynn is a 43-year old female who presented to the ED complaining of worsening abdominal pain, nausea, and vomiting x 4 days that worsened with movement, respiratory movements, and consumption of food/drink. Per H&P, patient also reported decreased urination and constipation secondary to decreased fluid intake. Family members that were present reported observing jaundice x 3 months. Patient has a history of alcohol dependence, and reportedly suffered a withdrawal seizure approximately one month ago when she was incarcerated for several days, forcing her to go without a drink. Her last reported drink was earlier that day. Initial laboratory studies demonstrated numerous abnormalities, with significant findings as follows: WBC 21.9, sodium 131, potassium 3.0, calcium 8.0, total bilirubin 14.5, direct bilirubin 9.2, AST 186, ALT 63, and alkaline phosphatase 318. Lactic acid was found to be elevated at 6.7. Patient also had elevated ammonia at 58 and elevated LDH at 404. CT abdomen/pelvis demonstrated hepatic steatosis, splenic calcifications, and a moderately distended gallbladder. Bile duct was noted to be dilated at 16.79mm as measured on imaging. Gallbladder ultrasound revealed fatty liver vs. diffuse hepatocellular disease with RUQ ascites and no evidence of acute cholecystitis. The pancreas was not visualized. Patient was admitted for severe sepsis and was started on IV fluids and zosyn for possible spontaneous bacterial peritonitis. Repeat lactic acid was further increased at 6.8. Patient underwent diagnostic paracentesis at the bedside today, with samples sent for bacterial culture. WBC count was further elevated at 25.5 on repeat studies. Lactic acid level throughout the day 6.8 --> 5.3 --> 5.8. Patient reported abdominal pain throughout the day that was worse with lying flat. Patient was able to tolerate clear liquid diet. Physical Exam: * General: Ill-appearing adult female lying in bed. She appears to be in mild distress secondary to discomfort and abdominal pain. She is restless and is visibly jaundiced. * HEENT: Atraumatic and normocephalic. Scleral icterus present. * Cardiovascular: Regular rate and rhythm. S1 and S2 present. No murmurs, gallops or rubs noted. * Respiratory: CTA bilaterally. Chest rises and falls symmetrically. * Gastrointestinal: Active bowel sounds present x 4 quadrants. Abdomen is mildly distended. Patient is tender to palpation, particularly in RUQ. * Extremities: Psoriatic skin changes noted on bilateral upper and lower extremities. No clubbing, cyanosis, or edema noted. Assessment and Plan: (1) Severe Sepsis Patient met sepsis criteria on admission, with elevated WBC count, tachycardia, and presumed source of infection. She was started on zosyn. Diagnostic paracentesis was performed, with collection of ~60mL of clear, straw-colored fluid. Peritoneal cultures pending. Will continue IV fluid hydration and close monitoring. Due to variable lactic acid, will perform repeat studies Q4H x 3. (2) Jaundice Patient is visibly jaundiced, which has reportedly been progressing over the last few months. Laboratory studies demonstrated multiple abnormalities in liver function tests. Hepatitis screening negative. Will continue to monitor closely with repeat studies in the morning. Appreciate gastroenterology input in management of this patient. (3) Alcohol dependence Patient has a known history of alcohol abuse and recently suffered a withdrawal seizure when she was incarcerated and unable to drink for several days. Ethyl alcohol level on admission was 38. Per report, the patient was found to have approximately one gallon of vodka hidden in her purse that was made known to staff by her mother while the patient was out of the room. She does not appear to be demonstrating withdrawal symptoms at this time. [facility] protocol in place. Patient would benefit from long-term alcohol cessation program upon discharge. Social work consulted for recommendations regarding management of patient's alcohol abuse.
[2018-05-27 09:45] LABS: Anisocytosis 1+ (Not Present); Monocytes # 1.5 K/mcL (0.0-1.3); Platelet Estimate Normal (Normal)
[2018-05-27 09:46] LABS: Macrocytosis Present (Not Present)
[2018-05-27 09:47] LABS: Hypochromasia Present (Not Present); Polychromasia 1+ (Not Present)
[2018-05-27] MEDS: Piperacillin/Tazobactam 3.375 GM in 0.9 % Sodium Chloride Mini Bag 100 ML IVPB SCH ×2 (10:07→16:28)
--- NOTE | 2018-05-27 11:40 | Gastroenterology Consult Note ---
<Elizabeth Ma - Last Filed: 05/27/18 11:37> Date of Encounter: 05/27/18 Time of Encounter: 09:45 - Assessment and plan (1) Ascites Current Visit: Yes Status: Acute Assessment and plan: Will order paracentesis with IR, cytology to rule out SBP. Will need diuretics. Qualifiers: Ascites type: other type Qualified Code(s): R18.8 - Other ascites (2) Elevated bilirubin Current Visit: Yes Status: Acute Assessment and plan: Likely alcoholic hepatitis, DF 29.4, does not warrant steroids at this time. Will check paracentesis to rule out SBP. Need to rule out sepsis, blood cultures are pending. Monitor labs and fluid status. Monitor for s/sx of alcohol withdrawal. - Time Spent With Patient Total time spent is greater than 50% in coordination of care (as documented) at patient's floor/unit and/or counseling patient: GI History of Present Illness - Data of Consult Patient: new to practice Consult date: 05/27/18 Requesting Physician: Jonnathan Ly DO - Consult Narrative Reason for consult: jaundice History of present illness: Ms. Lynn is a 43 year old female with a PMH of gastric bypass surgery, TROY, psoriasis, alcohol withdrawal seizures, alcohol dependence, and tobacco dependence who presented to the ED c/o diffuse abdominal pain, nausea, and vomiting for the past 3 days. She states she has not felt well in months and has been getting progressively worse. She is drowsy and dozing on and off during exam. She complains of nausea, dysphagia and increasing abdominal girth the past week. She reports the pain is worse with movement, breathing, and food and liquid intake. Patient reports decreased urination and constipation due to lack of hydration. Associated symptoms include abdominal distension, itching, productive cough with clear phelgm, subjective fevers, and lightheadedness. Family reports increasing jaundiced for the past 3 months. Patient denies hematauria, hematachezia, diarrhea, greasy stools, or change in mental status. She is on house arrest and reports having an alcohol withdrawal seizure one month ago after she was arrested for drunk driving and hitting a mailbox. Patient is reports usually drinking 1-2 glasses of liquor daily and her last drink was this morning. Patient's mother reported finding a gallon bottle of vodka in her daughter's purse while the patient was having her RUQ ultrasound performed, which was removed by security. anticoag: denies nsaids: denies EGD/colon: denies DF 29.4 MELD NA: 24 Child Hernandez: class C Past Med Surg Social Fam HX - Past Medical History Medical history: seizures Additional medical history: psoriasis, TROY Psychiatric history: anxiety - Past Surgical History Surgical History: other, bariatric surgery Additional surgical history: gastric bypass 2009, uterine mass and polyp removal 2017 - Social History Smoking Status: Current every day smoker Alcohol use: occasionally, recent Drug use: none - Family History Father Hx Family Cardiac Disorders: Yes (HTN) Mother Hx Family Cardiac Disorders: Yes (Uterine (precancerous)) Sister Hx Family Neurologic Disorders: Yes ( epilepsy) Hx Family Medical Disorders: Yes (endometriosis, back problem) Grandfather Hx Family Cancer: Yes (Lymphoma, liver CA) Paternal Name: Uncle Hx Family Cancer: Yes (Liver cancer) Review of Systems: GENERAL: reports fever and chills EYES: yellow discoloration ENT: see hpi CARDIO: denies chest pain, palpitations RESP: Shortness of breath with exertion : dark urine NEURO: weakness HEME: Denies any bruising MS: chronic joint pain. DERM: pt has psoriasis, reports increased itching PSYCH: history of anxiety and depression - Constitutional Vitals: Temp Pulse Resp BP Pulse Ox 98.2 F 128 18 109/81 98 05/27/18 07:37 05/27/18 07:37 05/27/18 07:37 05/27/18 07:37 05/27/18 07:37 Exam: CONSTITUTIONAL:~drowsy, no acute distress.~HEAD:~normocephalic.~EYES:~ jaundice. ~NECK:~no obvious swelling.~HEART:~regular rate and rhythm, no murmurs.~LUNGS:~ bilateral fair air entry.~ABDOMEN:~distended, firm, tender, hepatomegaly and upper abdome ascites noted.~RECTAL EXAM:~Deferred.~EXTREMITIES:~no clubbing, cyanosis or edema.~SKIN:~jaundice and bruising noted.~NEUROLOGIC:~no obvious focal defect.~~~~ Results - Labs CBC & Chem 7: 05/27/18 06:01 05/27/18 03:23 Labs: Last Result Calcium 7.7 mg/dL (8.6-10.3) L 05/27/18 03:23 Triglycerides 256 mg/dL (< 150) H 05/27/18 03:23 Entire Visit Hgb 10.7 g/dL (11.5-15.4) L D 05/27/18 06:01 Hct 34.2 % (35.3-44.9) L 05/27/18 06:01 PT 15.3 Seconds (9.4-12.1) H 05/26/18 20:42 Total Bilirubin 14.7 mg/dL (0.3-1.0) H 05/27/18 03:23 AST 184 Units/L (13-39) H 05/27/18 03:23 ALT 59 Units/L (7-52) H 05/27/18 03:23 Ammonia 58 mcmol/L (16-53) H 05/27/18 00:50 Lipase 60 Units/L (11-82) 05/26/18 20:42 - ABG ABG results: PT/INR, D-dimer PT 15.3 Seconds (9.4-12.1) H 05/26/18 20:42 Consult Discharge Plan - Plan Referrals: Sonny Velazco DO [Primary Care Provider] - 06/04/18 3:00 pm <Luis Davis - Last Filed: 05/28/18 15:01> Date of Encounter: 05/28/18 Time of Encounter: 13:00 - Time Spent With Patient Total time spent is greater than 50% in coordination of care (as documented) at patient's floor/unit and/or counseling patient: GI History of Present Illness - Data of Consult Requesting Physician: Jonnathan Ly DO - Consult Narrative History of present illness: Ms. Lynn is a 43 year old female - Constitutional Vitals: Temp Pulse Resp BP Pulse Ox 98.0 F 111 18 103/76 97 05/28/18 11:31 05/28/18 11:31 05/28/18 11:31 05/28/18 11:31 05/28/18 11:31 Results - Labs CBC & Chem 7: 05/28/18 03:20 05/28/18 03:20 Labs: Last Result Calcium 7.8 mg/dL (8.6-10.3) L 05/28/18 03:20 Triglycerides 256 mg/dL (< 150) H 05/27/18 03:23 Peritoneal Appearance CLEAR (Clear) 05/27/18 11:15 Peritoneal Volume 14.0 mL 05/27/18 11:15 Peritoneal RBC < 0.002 M/mcL (0.000-0.002) 05/27/18 11:15 Periton Tot Nuc Cells 48 TNC/mcL (0-300) 05/27/18 11:15 Periton Band Neuts TNP 05/27/18 11:15 Periton Lymphocytes % 25.0 % 05/27/18 11:15 Periton Monocytes % 6.3 % 05/27/18 11:15 Periton Other Cells % TNP 05/27/18 11:15 Peritoneal Tot Protein < 3.0 g/dL (No Ref Range) 05/27/18 11:15 Peritoneal LDH 42 Units/L (No Ref Range) 05/27/18 11:15 Peritoneal Glucose 109 mg/dL (No Ref Range) 05/27/18 11:15 Peritoneal Amylase < 10 Units/L (No Ref Range) 05/27/18 11:15 Entire Visit Hgb 9.5 g/dL (11.5-15.4) L 05/28/18 03:20 Hct 30.4 % (35.3-44.9) L 05/28/18 03:20 PT 18.3 Seconds (9.4-12.1) H 05/28/18 08:24 Total Bilirubin 17.0 mg/dL (0.3-1.0) H 05/28/18 03:20 AST 199 Units/L (13-39) H 05/28/18 03:20 ALT 58 Units/L (7-52) H 05/28/18 03:20 Ammonia 50 mcmol/L (16-53) 05/28/18 10:35 Amylase 20 Units/L (29-103) L 05/28/18 03:20 Lipase 69 Units/L (11-82) 05/28/18 03:20 - ABG ABG results: PT/INR, D-dimer PT 18.3 Seconds (9.4-12.1) H 05/28/18 08:24 - Attending Attestation I have personally performed a face to face evaluation on this patient. I have reviewed and agree with the care plan. History and Exam by me shows: Patient seen. Complaining of abdominal pain. Examination patient is deeply jaundice. Assessment: Pt With the alcoholic hepatitis currently DF score is 50. Rec: She will be started on IV Solu-Medrol. IV been banana bags
[2018-05-27] MEDS ORDERED: Calcium Gluconate 2,000 MG in 0.9 % Sodium Chloride 100 ML IVPB ONE (13:15)
--- NOTE | 2018-05-27 13:27 | Procedure Note ---
Date of procedure: 05/27/18 Pre-op diagnosis: ascites Post-op diagnosis: same Procedure: Paracentesis Procedure Note INDICATION: [ascites possible SBP] PROCEDURE DATA INTEGRITY ANALYST: Jacqueline Haq ATTENDING PHYSICIAN: Dr. Poe Ultrasound used to jessica location: yes CONSENT: Patient consented to the procedure and signed consent paper in presence of her mother. PROCEDURE SUMMARY: The area was cleansed and draped in usual sterile fashion using chlorhexidine scrub. The right side of the abdomen was prepped and draped in a sterile fashion. 1% lidocaine was used to numb the skin, soft tissue and peritoneum. The paracentesis catheter was inserted and advanced with negative pressure until straw colored fluid was aspirated. Approximately 60 mL of ascitic fluid was collected and sent for laboratory analysis. The catheter was then connected to the vaccutainer and 62cc of additional ascitic fluid were drained. The catheter was removed and no leaking was noted. A bandaid was placed over the puncture wound. The patient tolerated the procedure well without any immediate complications. Estimated blood loss was 3cc. Anesthesia: local Surgeon: Jacqueline Haq Was there an assistant women's tennis coach present: Yes Power Shovel Mechanic: Yessenia Preston Estimated blood loss (cc): 3 IV fluids (cc): 0 Specimen: Peritoneal fluid Condition: stable Disposition: no change
[2018-05-27] MEDS: Ringers Solution, Lactated 1,000 ML IVC SCH ×2 (14:11→23:32)
[2018-05-27 14:39] LABS: VBG HCO3 15 mEq/L (21-27); VBG PCO2 26 mmHg (41-51); VBG PH 7.38 pH Units (7.32-7.42); VBG PO2 214 mmHg (25-50)
[2018-05-27 15:53] LABS: Amylase,Peritoneal Fluid < 10 Units/L (No Ref Range); Glucose,Peritoneal Fluid 109 mg/dL (No Ref Range); LDH,Peritoneal Fluid 42 Units/L (No Ref Range); Total Protein,Peritoneal Fluid < 3.0 g/dL (No Ref Range)
[2018-05-27 15:56] LABS: RBC,Peritoneal Fluid < 0.002 M/mcL
[2018-05-27 16:10] LABS: Appearance of Peritoneal Fl CLEAR (Clear)
[2018-05-27] MEDS: *HR* Promethazine 25 MG/ML VIAL IVP PRN (17:39)
[2018-05-27] MEDS: Ketorolac 15 MG/ML VIAL IVP PRN (17:39)
[2018-05-27] MEDS ORDERED: Thiamine (B-1) 100 MG, Folic Acid 1 MG, MVI, adult with vitamin K 10 ML in 0.9 % Sodi... IVPB SCH (18:00)
[2018-05-28] MEDS: Piperacillin/Tazobactam 3.375 GM in 0.9 % Sodium Chloride Mini Bag 100 ML IVPB SCH ×3 (01:48→16:34)
[2018-05-28] MEDS: Ketorolac 15 MG/ML VIAL IVP PRN (03:23)
[2018-05-28 03:30] LABS: Basophils # 0.1 K/mcL (0.0-0.2); Basophils % 0.3 %; Eosinophils # 0.3 K/mcL (0.0-0.6); Eosinophils % 1.2 %; Hematocrit 30.4 % (35.3-44.9); Hemoglobin 9.5 g/dL (11.5-15.4); Lymphocytes # 2.2 K/mcL (0.6-4.6); Lymphocytes % 9.2 %; Mean Corpuscular HGB Conc 31.3 g/dL (31.6-35.5); Mean Corpuscular Hemoglobin 33.5 pg (28.0-33.3); Mean Platelet Volume 10.7 fL (9.4-12.4); Monocytes % 8.2 %; Neutrophils # 19.3 K/mcL (1.6-8.9); Nucleated Red Blood Cells 0.1 /100 WBC (0); Platelet Count 247 K/mcL (140-400); Red Blood Count 2.84 M/mcL (3.82-4.97); Red Cell Distribution Width 25.3 % (11.5-14.5); Segmented Neutrophils % 80.1 %
[2018-05-28 03:38] LABS: VBG Ionized Calcium 1.09 mmol/L (1.15-1.35)
[2018-05-28 03:56] LABS: Albumin 2.2 g/dL (3.5-5.7); Albumin/Globulin Ratio 0.8 (1.1-2.2); Calcium 7.8 mg/dL (8.6-10.3); Globulin 2.6 g/dL (2.4-3.5); Magnesium 1.7 mg/dL (1.6-2.6); Potassium 3.6 mEq/L (3.5-5.1); Total Protein 4.8 g/dL (6.4-8.9)
[2018-05-28 04:02] LABS: Anisocytosis 3+ (Not Present); Hypochromasia Present (Not Present); Platelet Estimate Normal (Normal); Polychromasia 1+ (Not Present)
[2018-05-28 04:03] LABS: Toxic Granulation Present (Not Present)
[2018-05-28] MEDS ORDERED: Ringers Solution, Lactated 1,000 ML IVC SCH (04:39)
[2018-05-28] MEDS: Pantoprazole 40 MG VIAL IVP SCH ×2 (05:33→16:35)
[2018-05-28] MEDS ORDERED: Calcium Gluconate 2,000 MG in 0.9 % Sodium Chloride 100 ML IVPB ONE (07:11)
--- NOTE | 2018-05-28 07:14 | Internal Med Progress Note ---
<Mohan,Lacey N - Last Filed: 05/28/18 18:51> Hospitalist Progress Note - Encounter Date of Encounter: 05/28/18 Time of Encounter: 07:14 - Subjective Interval History: Ms. Lynn is a 43-year old female who presented to the ED complaining of worsening abdominal pain, nausea, and vomiting x 4 days that worsened with movement, respiratory movements, and consumption of food/drink. Per H&P, patient also reported decreased urination and constipation secondary to decreased fluid intake. Family members that were present reported observing jaundice x 3 months. Patient has a history of alcohol dependence, and reportedly suffered a withdrawal seizure approximately one month ago when she was incarcerated for several days, forcing her to go without a drink. Her last reported drink was earlier that day. Initial laboratory studies demonstrated numerous abnormalities, with significant findings as follows: WBC 21.9, sodium 131, potassium 3.0, calcium 8.0, total bilirubin 14.5, direct bilirubin 9.2, AST 186, ALT 63, and alkaline phosphatase 318. Lactic acid was found to be elevated at 6.7. Patient also had elevated ammonia at 58 and elevated LDH at 404. CT abdomen/pelvis demonstrated hepatic steatosis, splenic calcifications, and a moderately distended gallbladder. Bile duct was noted to be dilated at 16.79mm as measured on imaging. Gallbladder ultrasound revealed fatty liver vs. diffuse hepatocellular disease with RUQ ascites and no evidence of acute cholecystitis. The pancreas was not visualized. Patient was admitted for severe sepsis and was started on IV fluids and zosyn for possible spontaneous bacterial peritonitis. Repeat lactic acid was further increased at 6.8. Patient underwent diagnostic paracentesis at the bedside today, with samples sent for bacterial culture. WBC count was further elevated at 25.5 on repeat studies. Lactic acid level throughout the day 6.8 --> 5.3 --> 5.8. Patient reported abdominal pain throughout the day that was worse with lying flat. Patient was able to tolerate clear liquid diet. 05/28 - Patient was assessed and examined at the bedside with her mother present. She complains of continued abdominal pain that is 7/10. It is worsened by movement and coughing. She reports that she is tolerating clear liquids without problem, but she does complain of coughing up "phlegm", which makes her vomit sometimes. She is currently on zofran 12.5mg IVP Q6H PRN, which does help alleviate her nausea. She reports wanting to go home this morning, and states that she wants a cigarette. She expresses that she would like to have "real food ". Patient does appear to be slightly improved since yesterday, and she does report decrease in abdominal distention since diagnostic paracentesis was performed yesterday. Patient was noted to have minimal urine output last night despite fluid hydration; urinalysis and metabolic panel demonstrated findings consistent with acute kidney injury. Discussed concerns regarding patient's condition with her and her mother, and advised them that if her INR increased > 2.0, we would likely transfer her to a facility with hepatology available. Patient and her mother voiced understanding of this plan. Patient and her mother were updated in the afternoon, and informed that as her INR was <2.0, we would continue to care for her here and provide IV fluid support. At this time, patient appeared to be tolerating full liquid diet well, but did complain of some continued cough with production of clear sputum. She requests an antitussive and a refill of her rescue inhaler. She denied any other acute complaints or concerns. - Exam Vitals: Temp Pulse Resp BP Pulse Ox 98.3 F 97 19 105/72 94 05/28/18 06:27 05/28/18 06:27 05/28/18 06:27 05/28/18 06:27 05/28/18 06:27 Exam: * General: Ill-appearing adult female lying in bed. She appears to be in mild distress secondary to discomfort and abdominal pain. She is restless and is visibly jaundiced. * HEENT: Atraumatic and normocephalic. Scleral icterus present. * Cardiovascular: Regular rate and rhythm. S1 and S2 present. No murmurs, gallops or rubs noted. * Respiratory: CTA bilaterally. Chest rises and falls symmetrically. * Gastrointestinal: Bowel sounds present x 4 quadrants. Abdominal distention improved compared to yesterday. Patient is tender to palpation, particularly in RUQ. Liver edge is easily palpable several millimeters beyond the edge of the costal margin * Extremities: Psoriatic skin changes noted on bilateral upper and lower extremities. No clubbing, cyanosis, or edema noted. - Assessment and Plan (1) Severe sepsis Current Visit: Yes Status: Acute Assessment and Plan: Patient met sepsis criteria on admission, with elevated WBC count, tachycardia, and presumed source of infection. She was started on zosyn. Diagnostic paracentesis was performed, with collection of ~60mL of clear, straw-colored fluid. Peritoneal cultures pending. Will continue IV fluid hydration and close monitoring. Due to variable lactic acid, will perform repeat studies Q4H x 3. 05/28 - WBC count remained elevvated today at 24.1. Lactic acid today 2.6 --> 2.7 --> 3.5. Repeat lactic acid pending. Preliminary results from diagnostic paracentesis demonstrated many WBCs, but no bacteria on gram stain. Will continue IV zosyn with close monitoring overnight. (2) Jaundice Current Visit: Yes Status: Acute Assessment and Plan: Patient is visibly jaundiced, which has reportedly been progressing over the last few months. Laboratory studies demonstrated multiple abnormalities in liver function tests. Hepatitis screening negative. Will continue to monitor closely with repeat studies in the morning. Appreciate gastroenterology input in management of this patient. 05/28 - Patient remains deeply jaundiced with obvious scleral icterus. Liver edge is palpable several millimeters beyond the costal margin. Patient had repeat liver testing today, with the following changes from initial studies: - Total bilirubin = 17.0 (from 14.5) - AST = 199 (from 186) - ALT = 58 (from 63) - Alkaline phosphatase = 239 (from 318) - Ammonia = 50 (from 58) - PT/INR = 18.3/1.6 (from 15.3/1.4) Due to patient's decreased discriminatory function, the following therapies were initiated per GI recommendations: - Solumedrol 60mg IV Q24H - Albumin 50g Q24H x 3 days - 500mL 0.9% NaCl with 100mg thiamine and 1mg folic acid infused at 100mL/ hour x 3 (total volume of 1500mL NS) Plan to continue to assess hepatic function via laboratory studies. Repeat PT/ INR in the morning. Per GI request, patient is NOT to receive any vitamin K supplementation, as it would alter her INR. Will continue to monitor closely. Discussed with patient the possibility of transfer to [facility] or [facility] where hepatology is available, if INR should reach >2.0. Patient voiced understanding and agreement with this plan. (3) Increased ammonia level Current Visit: Yes Status: Acute Assessment and Plan: Initial ammonia level was found to be 58; repeat today was 50, with 3+ icterus noted. Patient started on lactulose 10mg BID. Will continue to monitor with repeat laboratory studies tomorrow. (5) PAYTON (acute kidney injury) Current Visit: Yes Status: Acute Assessment and Plan: Patient reported decreased urine output at the time of admission. Patient has had minimal urine output since time of admission, with cumulative total of 300mL at this time. Cooper catheter was placed last night, and patient had output of brown, cloudy urine. Urinalysis was significant for large bilirubin and moderate hyaline casts. At the time of admission, creatinine was 0.54; however, serum creatinine increased today to 1.24. Patient was started on continuous IV fluids for PAYTON, and PRN NSAIDs were discontinued. Suspect that this is secondary to hepatorenal syndrome. Will continue IV fluids and close monitoring of renal function. (6) UTI (urinary tract infection) Current Visit: Yes Status: Acute Assessment and Plan: At the time of admission, urinalysis was significant for 30-50 RBC and 50-100 WBC, with many squamous cells and bacteria present. Patient had a repeat urinalysis last night after placement of cooper catheter, which was significant for the following findings: protein 30, 15 ketones, positive nitrite, large bilirubin, moderate leukocyte esterase, 15-30 RBC/WBC, moderate bacteria, and moderate hyaline casts. Urine culture was not ordered at that time due to presence of squamous epithelial cells; however, culture was ordered today in light of positive nitrite and presence of leukocyte esterase. Patient is currently on antibacterial therapy with zosyn. Will adjust antibiotics if needed based on results of culture and sensitivity studies. (7) Trichomoniasis of bladder Current Visit: Yes Status: Acute Assessment and Plan: Trichomonas was found to be positive on urinalysis performed in the emergency department. At time of admission, patient had contraindication to treatment with flagyl due to ethyl alcohol level of 38. As there are no other treatment options for this infection, discussed with pharmacy regarding when it would be safe to start her on flagyl. Per their recommendations, plan to start patient on flagyl 500mg BID x 7 days for treatment of trichomoniasis. (8) Alcohol dependence Current Visit: Yes Status: Chronic Assessment and Plan: Patient has a known history of alcohol abuse and recently suffered a withdrawal seizure when she was incarcerated and unable to drink for several days. Ethyl alcohol level on admission was 38. Per report, the patient was found to have approximately one gallon of vodka hidden in her purse that was made known to staff by her mother while the patient was out of the room. She does not appear to be demonstrating withdrawal symptoms at this time. [facility] protocol in place. Patient would benefit from long-term alcohol cessation program upon discharge. Social work consulted for recommendations regarding management of patient's alcohol abuse. 05/28 - Patient has not demonstrated any signs of alcohol withdrawal as of yet. Will continue to assess per [facility] protocol. (9) Tobacco dependence Current Visit: Yes Status: Chronic Assessment and Plan: Nicotine patch daily. Patient encouraged to consider long-term smoking cessation. (10) DVT prophylaxis Current Visit: Yes Status: Acute Assessment and Plan: Heparin 5000units Q12H. - Time Spent with Patient Total time spent is greater than 50% in coordination of care (as documented) at patient's floor/unit and/or counseling patient: Internal Medicine: Result - Labs CBC & Chem 7: 05/28/18 03:20 05/28/18 03:20 Labs: Short CBC 05/27/18 05/28/18 Range/Units 06:01 03:20 WBC 24.1 H (4.3-11.1) K/mcL Hgb 9.5 L (11.5-15.4) g/dL Hct 30.4 L (35.3-44.9) % Plt Count 247 (140-400) K/mcL Neutrophils # 23.0 H 19.3 H (1.6-8.9) K/mcL BMP 05/28/18 03:20 Sodium 130 L Potassium 3.6 Chloride 101 Carbon Dioxide 21 L BUN 5 L Creatinine 1.24 H Glucose 96 Calcium 7.8 L Liver Function 05/27/18 05/28/18 Range/Units 12:56 03:20 Total Bilirubin 17.0 H (0.3-1.0) mg/dL AST 199 H (13-39) Units/L ALT 58 H (7-52) Units/L Alkaline Phosphatase 239 H (34-104) Units/L Albumin 2.3 L 2.2 L (3.5-5.7) g/dL - ABG Interpretation ABG results: PT/INR, D-dimer PT 15.3 Seconds (9.4-12.1) H 05/26/18 20:42 Consult Discharge Plan - Plan Referrals: Sonny Velazco DO [Primary Care Provider] - Vern Valdez DO [Resident] - 06/04/18 3:00 pm <Jonnathan Ly - Last Filed: 05/30/18 14:44> Hospitalist Progress Note - Encounter Date of Encounter: 05/28/18 - Exam Vitals: Temp Pulse Resp BP Pulse Ox 98.2 F 100 15 120/78 93 05/30/18 10:37 05/30/18 10:37 05/30/18 10:37 05/30/18 10:37 05/30/18 10:37 - Assessment and Plan (1) Alcoholic hepatitis with ascites Current Visit: Yes Status: Acute (2) DVT prophylaxis Current Visit: Yes Status: Acute (3) Alcohol dependence Current Visit: Yes Status: Chronic (4) Severe sepsis Current Visit: Yes Status: Resolved (5) Increased ammonia level Current Visit: Yes Status: Acute (6) Jaundice Current Visit: Yes Status: Acute (7) UTI (urinary tract infection) Current Visit: Yes Status: Acute (8) Trichomoniasis of bladder Current Visit: Yes Status: Acute (9) Anemia Current Visit: Yes Status: Suspected (10) Tobacco abuse Current Visit: Yes Status: Chronic (11) Psoriasis Current Visit: Yes Status: Chronic (12) Fluid overload Current Visit: Yes Status: Acute - Time Spent with Patient Total time spent is greater than 50% in coordination of care (as documented) at patient's floor/unit and/or counseling patient: Internal Medicine: Result - Labs CBC & Chem 7: 05/30/18 04:49 05/30/18 04:49 Labs: Short CBC 05/30/18 Range/Units 04:49 WBC 20.0 H (4.3-11.1) K/mcL Hgb 8.4 L (11.5-15.4) g/dL Hct 27.5 L (35.3-44.9) % Plt Count 162 (140-400) K/mcL Neutrophils # 18.4 H (1.6-8.9) K/mcL BMP 05/30/18 04:49 Sodium 135 L Potassium 3.6 Chloride 106 Carbon Dioxide 19 L BUN 5 L Creatinine 0.85 Glucose 114 H Calcium 8.6 Liver Function 05/30/18 Range/Units 04:49 Total Bilirubin 16.5 H (0.3-1.0) mg/dL AST 98 H (13-39) Units/L ALT 42 (7-52) Units/L Alkaline Phosphatase 153 H (34-104) Units/L Albumin 3.4 L (3.5-5.7) g/dL - ABG Interpretation ABG results: PT/INR, D-dimer PT 23.4 Seconds (9.4-12.1) H 05/30/18 05:25 - Attending Attestation I examined this patient and my medical decision-making was reviewed with the Resident Physician on 05/28/18. I agree with the documented findings, disposition and treatment plan as described except to the extent set forth below. Please see event note of 05/28/18 <Yessenia Preston - Last Filed: 05/28/18 18:51> (8) Alcohol dependence Qualifiers: Substance use status: unspecified alcohol-induced disorder Qualified Code(s) : F10.29 - Alcohol dependence with unspecified alcohol-induced disorder <Jonnathan Ly - Last Filed: 05/30/18 14:44> (3) Alcohol dependence Qualifiers: Substance use status: other alcohol-induced disorder Qualified Code(s): F10.288 - Alcohol dependence with other alcohol-induced disorder (7) UTI (urinary tract infection) Qualifiers: Urinary tract infection type: acute cystitis Hematuria presence: without hematuria Qualified Code(s): N30.00 - Acute cystitis without hematuria (9) Anemia Qualifiers: Anemia type: B12 deficiency Vitamin B12 deficiency anemia type: other dietary B12 deficiency Qualified Code(s): D51.3 - Other dietary vitamin B12 deficiency anemia (12) Fluid overload Qualifiers: Hypervolemia type: other Qualified Code(s): E87.79 - Other fluid overload
[2018-05-28] MEDS: OXYCODONE Oral CONC 10 MG/0.5 ML ORAL.SYG SL PRN ×3 (08:29→21:01)
[2018-05-28] MEDS: Ondansetron 4 MG/2 ML VIAL IVP PRN ×2 (08:29→20:54)
[2018-05-28 10:59] LABS: INR 1.6; Prothrombin Time 18.3 Seconds (9.4-12.1)
[2018-05-28] MEDS ORDERED: 0.9 % Sodium Chloride 1,000 ML IVC SCH (11:30)
[2018-05-28] MEDS ORDERED: methylPREDNISolone 125 MG/2 ML VIAL IVP SCH (11:45)
--- NOTE | 2018-05-28 11:54 | Gastroenterology Progress Note ---
<Nasrin Man Keenan - Last Filed: 05/28/18 11:51> Date of Encounter: 05/28/18 Time of Encounter: 09:15 - Assessment and plan (1) Ascites Current Visit: Yes Status: Acute Assessment and plan: s/p diagnostic paracentesis, distention is improved Qualifiers: Ascites type: other type Qualified Code(s): R18.8 - Other ascites (2) Elevated bilirubin Current Visit: Yes Status: Acute Assessment and plan: Likely alcoholic hepatitis, DF 45.5 will start solumedrol. Monitor labs and fluid status. Monitor for s/sx of alcohol withdrawal, pt is on ativan. - Time Spent With Patient Total time spent is greater than 50% in coordination of care (as documented) at patient's floor/unit and/or counseling patient: - Subjective Interval history: Ms. Lynn is a 43-year old female who presented with abdominal pain and jaundice. She has alcoholic hepatitis. LFTs continue to increase, DF is 45.5 today. She is alert but states she feels like she is having some 'nightmares while she is awake", she has episodes of dozing on and off. Ammonia is 50, lactic acid is improved but WbC remains elevated at 24. She is status post diagnostic paracentesis. - Constitutional Vitals: Temp Pulse Resp BP Pulse Ox 98.0 F 111 18 103/76 97 05/28/18 11:31 05/28/18 11:31 05/28/18 11:31 05/28/18 11:31 05/28/18 11:31 Exam: CONSTITUTIONAL:~drowsy, no acute distress.~HEAD:~normocephalic.~EYES:~jaundice.~ NECK:~no obvious swelling.~HEART:~regular rate and rhythm, no murmurs.~LUNGS:~ bilateral fair air entry.~ABDOMEN:~distended, soft, diffusely tender, hepatomegaly.~RECTAL EXAM:~Deferred.~EXTREMITIES:~no clubbing, cyanosis or edema.~SKIN:~jaundice.~NEUROLOGIC:~no obvious focal defect.~~~~ Results - Labs CBC & Chem 7: 05/28/18 03:20 05/28/18 03:20 Labs: Last Result Calcium 7.8 mg/dL (8.6-10.3) L 05/28/18 03:20 Triglycerides 256 mg/dL (< 150) H 05/27/18 03:23 Peritoneal Appearance CLEAR (Clear) 05/27/18 11:15 Peritoneal Volume 14.0 mL 05/27/18 11:15 Peritoneal RBC < 0.002 M/mcL (0.000-0.002) 05/27/18 11:15 Periton Tot Nuc Cells 48 TNC/mcL (0-300) 05/27/18 11:15 Periton Band Neuts TNP 05/27/18 11:15 Periton Lymphocytes % 25.0 % 05/27/18 11:15 Periton Monocytes % 6.3 % 05/27/18 11:15 Periton Other Cells % TNP 05/27/18 11:15 Peritoneal Tot Protein < 3.0 g/dL (No Ref Range) 05/27/18 11:15 Peritoneal LDH 42 Units/L (No Ref Range) 05/27/18 11:15 Peritoneal Glucose 109 mg/dL (No Ref Range) 05/27/18 11:15 Peritoneal Amylase < 10 Units/L (No Ref Range) 05/27/18 11:15 Entire Visit Hgb 9.5 g/dL (11.5-15.4) L 05/28/18 03:20 Hct 30.4 % (35.3-44.9) L 05/28/18 03:20 PT 18.3 Seconds (9.4-12.1) H 05/28/18 08:24 Total Bilirubin 17.0 mg/dL (0.3-1.0) H 05/28/18 03:20 AST 199 Units/L (13-39) H 05/28/18 03:20 ALT 58 Units/L (7-52) H 05/28/18 03:20 Ammonia 50 mcmol/L (16-53) 05/28/18 10:35 Amylase 20 Units/L (29-103) L 05/28/18 03:20 Lipase 69 Units/L (11-82) 05/28/18 03:20 - ABG ABG results: PT/INR, D-dimer PT 18.3 Seconds (9.4-12.1) H 05/28/18 08:24 Consult Discharge Plan - Plan Referrals: Sonny Velazco DO [Primary Care Provider] - 06/04/18 3:00 pm <Luis Davis - Last Filed: 05/28/18 14:46> Date of Encounter: 05/28/18 Time of Encounter: 13:00 - Time Spent With Patient Total time spent is greater than 50% in coordination of care (as documented) at patient's floor/unit and/or counseling patient: - Constitutional Vitals: Temp Pulse Resp BP Pulse Ox 98.0 F 111 18 103/76 97 05/28/18 11:31 05/28/18 11:31 05/28/18 11:31 05/28/18 11:31 05/28/18 11:31 Results - Labs CBC & Chem 7: 05/28/18 03:20 05/28/18 03:20 Labs: Last Result Calcium 7.8 mg/dL (8.6-10.3) L 05/28/18 03:20 Triglycerides 256 mg/dL (< 150) H 05/27/18 03:23 Peritoneal Appearance CLEAR (Clear) 05/27/18 11:15 Peritoneal Volume 14.0 mL 05/27/18 11:15 Peritoneal RBC < 0.002 M/mcL (0.000-0.002) 05/27/18 11:15 Periton Tot Nuc Cells 48 TNC/mcL (0-300) 05/27/18 11:15 Periton Band Neuts TNP 05/27/18 11:15 Periton Lymphocytes % 25.0 % 05/27/18 11:15 Periton Monocytes % 6.3 % 05/27/18 11:15 Periton Other Cells % TNP 05/27/18 11:15 Peritoneal Tot Protein < 3.0 g/dL (No Ref Range) 05/27/18 11:15 Peritoneal LDH 42 Units/L (No Ref Range) 05/27/18 11:15 Peritoneal Glucose 109 mg/dL (No Ref Range) 05/27/18 11:15 Peritoneal Amylase < 10 Units/L (No Ref Range) 05/27/18 11:15 Entire Visit Hgb 9.5 g/dL (11.5-15.4) L 05/28/18 03:20 Hct 30.4 % (35.3-44.9) L 05/28/18 03:20 PT 18.3 Seconds (9.4-12.1) H 05/28/18 08:24 Total Bilirubin 17.0 mg/dL (0.3-1.0) H 05/28/18 03:20 AST 199 Units/L (13-39) H 05/28/18 03:20 ALT 58 Units/L (7-52) H 05/28/18 03:20 Ammonia 50 mcmol/L (16-53) 05/28/18 10:35 Amylase 20 Units/L (29-103) L 05/28/18 03:20 Lipase 69 Units/L (11-82) 05/28/18 03:20 - ABG ABG results: PT/INR, D-dimer PT 18.3 Seconds (9.4-12.1) H 05/28/18 08:24 - Attending Attestation I have personally performed a face to face evaluation on this patient. I have reviewed and agree with the care plan. History and Exam by me shows: Patient seen. Complaining of upper abdominal pain. On examination patient is deeply jaundice. Assessment patient with alcoholic hepatitis with that discriminant function of 50. Recommendation: IV Solu-Medrol 60 mg daily, IV been on her back. Also given her IV albumin daily 50g , 3 days. No vitamin K supplement
[2018-05-28] MEDS: Lactulose Oral Soln 20 GM/30 ML UDC PO SCH ×2 (13:04→21:00)
[2018-05-28] MEDS: Nicotine 14 MG PATCH.TD24 TD SCH (13:04)
[2018-05-28] MEDS: Albumin 25% 25gram/100mL 25 GM/100 ML IV.SOLN IVPB SCH (15:38)
[2018-05-28] MEDS: *HR* Heparin 5,000 UNIT/ML VIAL SQ SCH (16:34)
[2018-05-28] MEDS ORDERED: FOLIC ACID IVPB SCH (17:24)
[2018-05-28] MEDS ORDERED: SODIUM CHLORIDE 0.9% IVPB SCH (17:24)
[2018-05-28] MEDS ORDERED: THIAMINE IVPB SCH (17:24)
[2018-05-28] MEDS ORDERED: Thiamine (B-1) 100 MG, Folic Acid 1 MG, MVI, adult with vitamin K 10 ML in 0.9 % Sodi... IVPB SCH (18:00)
--- NOTE | 2018-05-28 18:45 | Event Note ---
Date of Encounter: 05/28/18 Time of Encounter: 13:30 I examined this patient and my medical decision-making was reviewed with the Resident Physician on 05/28/18. I agree with the documented findings, disposition and treatment plan as described except to the extent set forth below. Ms Lynn is currently admitted for acute alcoholic hepatitis and chronic alcohol abuse. She remains moderate to high risk due to potential for worsening clinical status. Ms Lynn feels OK. No CP or SOB. Still with abd pain. No diarrhea. Exam alert. Comfortable Mucus membranes dry Heart not tachy Lungs diminished Abd diffusely tender without peritoneal signs I/P 1. Acute alcoholic hepatitis - start steroids today 2. Chronic ETOH abuse Further diagnoses and plan per progress note today.
[2018-05-28] MEDS: methylPREDNISolone 125 MG/2 ML VIAL IVP SCH (20:56)
[2018-05-28] MEDS: FOLIC ACID IVPB SCH (22:52)
[2018-05-28] MEDS: THIAMINE IVPB SCH (22:52)
[2018-05-28] MEDS: SODIUM CHLORIDE 0.9% IVPB SCH (22:52)
[2018-05-29] MEDS: *HR* Promethazine 25 MG/ML VIAL IVP PRN (01:10)
[2018-05-29] MEDS: Albumin 25% 25gram/100mL 25 GM/100 ML IV.SOLN IVPB SCH ×2 (01:11→14:20)
[2018-05-29] MEDS: OXYCODONE Oral CONC 10 MG/0.5 ML ORAL.SYG SL PRN ×5 (01:17→20:04)
[2018-05-29] MEDS: Piperacillin/Tazobactam 3.375 GM in 0.9 % Sodium Chloride Mini Bag 100 ML IVPB SCH ×2 (02:50→09:11)
[2018-05-29 03:18] LABS: Basophils % 0.1 %; Eosinophils % 0.1 %; Hematocrit 25.2 % (35.3-44.9); Lymphocytes # 0.6 K/mcL (0.6-4.6); Lymphocytes % 4.7 %; Mean Corpuscular Hemoglobin 33.3 pg (28.0-33.3); Mean Corpuscular Volume 107.7 fL (83.0-100.0); Mean Platelet Volume 10.5 fL (9.4-12.4); Monocytes # 0.3 K/mcL (0.0-1.3); Monocytes % 2.2 %; Neutrophils # 11.7 K/mcL (1.6-8.9); Nucleated Red Blood Cells 0.2 /100 WBC (0); Platelet Count 169 K/mcL (140-400); Red Blood Count 2.34 M/mcL (3.82-4.97); Red Cell Distribution Width 24.5 % (11.5-14.5); Segmented Neutrophils % 91.9 %
[2018-05-29 03:23] LABS: INR 1.8
[2018-05-29] MEDS ORDERED: THIAMINE IVPB SCH (03:30)
[2018-05-29] MEDS ORDERED: FOLIC ACID IVPB SCH (03:30)
[2018-05-29] MEDS ORDERED: SODIUM CHLORIDE 0.9% IVPB SCH (03:30)
[2018-05-29 03:39] LABS: Hemoglobin 7.8 g/dL (11.5-15.4)
[2018-05-29 03:41] LABS: Anisocytosis 1+ (Not Present); Platelet Estimate Normal (Normal); Poikilocytosis 1+ (Not Present)
[2018-05-29] MEDS: FOLIC ACID IVPB SCH ×2 (04:00→09:12)
[2018-05-29] MEDS: THIAMINE IVPB SCH ×2 (04:00→09:12)
[2018-05-29] MEDS: SODIUM CHLORIDE 0.9% IVPB SCH ×2 (04:00→09:12)
[2018-05-29 04:01] LABS: Alanine Aminotransferase 47 Units/L (7-52); Albumin 3.1 g/dL (3.5-5.7); Albumin/Globulin Ratio 1.6 (1.1-2.2); Alkaline Phosphatase 170 Units/L (34-104); Aspartate Amino Transferase 128 Units/L (13-39); BUN/Creatinine Ratio 5 (6-26); Bilirubin,Total 16.8 mg/dL (0.3-1.0); Blood Urea Nitrogen 5 mg/dL (6-20); Calcium 8.2 mg/dL (8.6-10.3); Carbon Dioxide 19 mEq/L (23-29); Chloride 103 mEq/L (98-107); Globulin 1.9 g/dL (2.4-3.5); Glucose 115 mg/dL (70-105); Osmolality,Calculated 270 (280-300); Potassium 3.5 mEq/L (3.5-5.1); Sodium 131 mEq/L (136-145); eGFR For Non-African Americans > 60 (> 60)
[2018-05-29 04:36] LABS: Bilirubin,Direct 12.4 mg/dL (0.0-0.2); Bilirubin,Indirect 4.4 mg/dL (0.0-1.2); Bilirubin,Total 16.8 mg/dL (0.3-1.0)
[2018-05-29] MEDS: *HR* Heparin 5,000 UNIT/ML VIAL SQ SCH ×2 (05:04→16:59)
[2018-05-29] MEDS: Pantoprazole 40 MG VIAL IVP SCH ×2 (05:04→17:00)
[2018-05-29] MEDS: Ondansetron 4 MG/2 ML VIAL IVP PRN ×3 (05:14→23:59)
--- NOTE | 2018-05-29 08:12 | Internal Med Progress Note ---
<Yessenia Preston N - Last Filed: 05/29/18 16:02> Hospitalist Progress Note - Encounter Date of Encounter: 05/29/18 Time of Encounter: 08:12 - Subjective Interval History: Ms. Lynn is a 43-year old female who presented to the ED complaining of worsening abdominal pain, nausea, and vomiting x 4 days that worsened with movement, respiratory movements, and consumption of food/drink. Per H&P, patient also reported decreased urination and constipation secondary to decreased fluid intake. Family members that were present reported observing jaundice x 3 months. Patient has a history of alcohol dependence, and reportedly suffered a withdrawal seizure approximately one month ago when she was incarcerated for several days, forcing her to go without a drink. Her last reported drink was earlier that day. Initial laboratory studies demonstrated numerous abnormalities, with significant findings as follows: WBC 21.9, sodium 131, potassium 3.0, calcium 8.0, total bilirubin 14.5, direct bilirubin 9.2, AST 186, ALT 63, and alkaline phosphatase 318. Lactic acid was found to be elevated at 6.7. Patient also had elevated ammonia at 58 and elevated LDH at 404. CT abdomen/pelvis demonstrated hepatic steatosis, splenic calcifications, and a moderately distended gallbladder. Bile duct was noted to be dilated at 16.79mm as measured on imaging. Gallbladder ultrasound revealed fatty liver vs. diffuse hepatocellular disease with RUQ ascites and no evidence of acute cholecystitis. The pancreas was not visualized. Patient was admitted for severe sepsis and was started on IV fluids and zosyn for possible spontaneous bacterial peritonitis. Repeat lactic acid was further increased at 6.8. Patient underwent diagnostic paracentesis at the bedside today, with samples sent for bacterial culture. WBC count was further elevated at 25.5 on repeat studies. Lactic acid level throughout the day 6.8 --> 5.3 --> 5.8. Patient reported abdominal pain throughout the day that was worse with lying flat. Patient was able to tolerate clear liquid diet. 05/28 - Patient was assessed and examined at the bedside with her mother present. She complains of continued abdominal pain that is 7/10. It is worsened by movement and coughing. She reports that she is tolerating clear liquids without problem, but she does complain of coughing up "phlegm", which makes her vomit sometimes. She is currently on zofran 12.5mg IVP Q6H PRN, which does help alleviate her nausea. She reports wanting to go home this morning, and states that she wants a cigarette. She expresses that she would like to have "real food ". Patient does appear to be slightly improved since yesterday, and she does report decrease in abdominal distention since diagnostic paracentesis was performed yesterday. Patient was noted to have minimal urine output last night despite fluid hydration; urinalysis and metabolic panel demonstrated findings consistent with acute kidney injury. Discussed concerns regarding patient's condition with her and her mother, and advised them that if her INR increased > 2.0, we would likely transfer her to a facility with hepatology available. Patient and her mother voiced understanding of this plan. Patient and her mother were updated in the afternoon, and informed that as her INR was <2.0, we would continue to care for her here and provide IV fluid support. At this time, patient appeared to be tolerating full liquid diet well, but did complain of some continued cough with production of clear sputum. She requests an antitussive and a refill of her rescue inhaler. She denied any other acute complaints or concerns. 05/29 - Patient was assessed and examined at the bedside. She appears improved today, and she does report a slight reduction in abdominal pain. Jaundice appears improved and urine output has increased overnight. Patient states that she would like to have solid food and requests a diet. Nursing staff reports patient agitation this morning associated with requests for her nicotene patch. No significant overnight events. - Exam Vitals: Temp Pulse Resp BP Pulse Ox 98.0 F 83 18 108/75 97 05/29/18 03:50 05/29/18 03:50 05/29/18 04:20 05/29/18 03:50 05/29/18 04:20 Exam: * General: Adult female sitting bed. She appears to be comfortable and in no acute distress. She is interactive and answers questions appropriately. * HEENT: Atraumatic and normocephalic. Scleral icterus present, which is slightly improved from yesterday. * Cardiovascular: Regular rate and rhythm. S1 and S2 present. No murmurs, gallops or rubs noted. * Respiratory: CTA bilaterally. Chest rises and falls symmetrically. * Gastrointestinal: Bowel sounds present x 4 quadrants. Minimal abdominal distention improved compared to yesterday. Abdomen is soft. Patient is tender to palpation, particularly in RUQ. Liver edge is palpable. * Extremities: No clubbing, cyanosis, or edema noted. * Skin: Improvement in jaundice as compared to yesterday. Psoriatic skin changes noted on bilateral upper and lower extremities. - Assessment and Plan (1) Severe sepsis Current Visit: Yes Status: Acute Assessment and Plan: Patient met sepsis criteria on admission, with elevated WBC count, tachycardia, and presumed source of infection. She was started on zosyn. Diagnostic paracentesis was performed, with collection of ~60mL of clear, straw-colored fluid. Peritoneal cultures pending. Will continue IV fluid hydration and close monitoring. Due to variable lactic acid, will perform repeat studies Q4H x 3. 05/28 - WBC count remained elevated today at 24.1. Lactic acid today 2.6 --> 2.7 --> 3.5. Repeat lactic acid pending. Preliminary results from diagnostic paracentesis demonstrated many WBCs, but no bacteria on gram stain. Will continue IV zosyn with close monitoring overnight. 05/29 - WBC improved this morning. Initial laboratory studies demonstrated WBC count of 12.7; however, CBC was redrawn due to concerns for dilution. Repeat CBC revealed WBC count of 8.6. Lactic acid this morning was 3.2, which was decreased to 3.0 on repeat study. Discontinued IV zosyn today and started therapy with ceftriaxone and metronidazole. Patient reports feeling better and has been able to tolerate advancement of diet. Will continue close monitoring and assessment. (2) Jaundice Current Visit: Yes Status: Acute Assessment and Plan: Patient is visibly jaundiced, which has reportedly been progressing over the last few months. Laboratory studies demonstrated multiple abnormalities in liver function tests. Hepatitis screening negative. Will continue to monitor closely with repeat studies in the morning. Appreciate gastroenterology input in management of this patient. 05/28 - Patient remains deeply jaundiced with obvious scleral icterus. Liver edge is palpable several millimeters beyond the costal margin. Patient had repeat liver testing today, with the following changes from initial studies: - Total bilirubin = 17.0 (from 14.5) - AST = 199 (from 186) - ALT = 58 (from 63) - Alkaline phosphatase = 239 (from 318) - Ammonia = 50 (from 58) - PT/INR = 18.3/1.6 (from 15.3/1.4) Due to patient's decreased discriminatory function, the following therapies were initiated per GI recommendations: - Solumedrol 60mg IV Q24H - Albumin 50g Q24H x 3 days - 500mL 0.9% NaCl with 100mg thiamine and 1mg folic acid infused at 100mL/ hour x 3 (total volume of 1500mL NS) Plan to continue to assess hepatic function via laboratory studies. Repeat PT/ INR in the morning. Per GI request, patient is NOT to receive any vitamin K supplementation, as it would alter her INR. Will continue to monitor closely. Discussed with patient the possibility of transfer to [facility] or [facility] where hepatology is available, if INR should reach >2.0. Patient voiced understanding and agreement with this plan. 05/29 - Patient appears to be less jaundiced today. Repeat liver function studies demonstrated the following changes: - Total bilirubin = 14.5 --> 17.0 --> 16.8 - Direct bilirubin = 9.2 --> 8.5 --> 12.4 - Indirect bilirubin = 5.3 --> 6.2 --> 4.4 - AST = 186 --> 199 --> 128 - ALT = 63 --> 58 --> 47 - Alkaline phosphatase = 318 --> 239 --> 170 - Ammonia = 58 --> 50 --> 59 - PT/INR = 15.3/1.4 --> 18.3/1.6 --> 20.3/1.8 Patient is receiving albumin 25g IVPB Q12H. She has received 3 bags thus far, with improvement in serum albumin to 3.5 (2.1 on initial lab studies. Will continue IV solumedrol 60mg as planned and close watch on liver function tests. Appreciate GI input in management of this patient. (3) Increased ammonia level Current Visit: Yes Status: Acute Assessment and Plan: Initial ammonia level was found to be 58; repeat today was 50, with 3+ icterus noted. Patient started on lactulose 10mg BID. Will continue to monitor with repeat laboratory studies tomorrow. 05/29 - Patient had increase in ammonia to 59. Will continue lactulose 10mg BID with close watch for development of neurologic symptoms or encephalopathy. (4) PAYTON (acute kidney injury) Current Visit: Yes Status: Acute Assessment and Plan: Patient reported decreased urine output at the time of admission. Patient has had minimal urine output since time of admission, with cumulative total of 300mL at this time. Cooper catheter was placed last night, and patient had output of brown, cloudy urine. Urinalysis was significant for large bilirubin and moderate hyaline casts. At the time of admission, creatinine was 0.54; however, serum creatinine increased today to 1.24. Patient was started on continuous IV fluids for PAYTON, and PRN NSAIDs were discontinued. Suspect that this is secondary to hepatorenal syndrome. Will continue IV fluids and close monitoring of renal function. 05/29 - Creatinine WNL on laboratory studies this morning. Patient's urine output has increased. Will continue to monitor renal function closely. (5) UTI (urinary tract infection) Current Visit: Yes Status: Acute Assessment and Plan: At the time of admission, urinalysis was significant for 30-50 RBC and 50-100 WBC, with many squamous cells and bacteria present. Patient had a repeat urinalysis last night after placement of cooper catheter, which was significant for the following findings: protein 30, 15 ketones, positive nitrite, large bilirubin, moderate leukocyte esterase, 15-30 RBC/WBC, moderate bacteria, and moderate hyaline casts. Urine culture was not ordered at that time due to presence of squamous epithelial cells; however, culture was ordered today in light of positive nitrite and presence of leukocyte esterase. Patient is currently on antibacterial therapy with zosyn. Will adjust antibiotics if needed based on results of culture and sensitivity studies. 05/29 - Preliminary urine culture results demonstrate gram negative rods. Patient was started on ceftriaxone 1000mg IV Q24H. Will adjust antibiotic therapy based on culture and sensitivity results if needed. (6) Trichomoniasis of bladder Current Visit: Yes Status: Acute Assessment and Plan: Trichomonas was found to be positive on urinalysis performed in the emergency department. At time of admission, patient had contraindication to treatment with flagyl due to ethyl alcohol level of 38. As there are no other treatment options for this infection, discussed with pharmacy regarding when it would be safe to start her on flagyl. Per their recommendations, plan to start patient on flagyl 500mg BID x 7 days for treatment of trichomoniasis. 05/29 - Intiated therapy with flagyl for treatment of trichomoniasis. As patient' s Child-Hernandez score places her in class C, pharmacy recommended dose reduction. Patient started on 250mg IV BID, with plan for a total of 7 days of treatment. (7) Alcohol dependence Current Visit: Yes Status: Chronic Assessment and Plan: Patient has a known history of alcohol abuse and recently suffered a withdrawal seizure when she was incarcerated and unable to drink for several days. Ethyl alcohol level on admission was 38. Per report, the patient was found to have approximately one gallon of vodka hidden in her purse that was made known to staff by her mother while the patient was out of the room. She does not appear to be demonstrating withdrawal symptoms at this time. [facility] protocol in place. Patient would benefit from long-term alcohol cessation program upon discharge. Social work consulted for recommendations regarding management of patient's alcohol abuse. 05/28 - Patient has not demonstrated any signs of alcohol withdrawal as of yet. Will continue to assess per [facility] protocol. 05/29 - Patient has not demonstrated any altered mental status or signs of withdrawal. Nursing staff is completing regular evaluations per [facility] protocol. Will continue close monitoring. (8) Tobacco dependence Current Visit: Yes Status: Chronic Assessment and Plan: Nicotine patch daily. Patient encouraged to consider long-term smoking cessation. (9) DVT prophylaxis Current Visit: Yes Status: Acute Assessment and Plan: Heparin 5000 units Q12H. (10) Anemia Current Visit: Yes Status: Acute Assessment and Plan: Patient demonstrated a drastic decrease in hemoglobin and hematocrit on morning laboratories, with values of 7.8/25.2 (from 9.5/30.4 yesterday). Gastroenterology expressed concern for possibility of acute GI bleed; however, patient was deemed to be a poor candidate for EGD as she would likely not tolerate anesthesia well in the setting of her acute hepatic failure. Due to concern for possible hemolytic anemia, peripheral blood smear was ordered. Pertinent findings were as follows: * Increased leukocyte count with absolute neutrophilia. Leukocytes mainly neutrophils, lymphocytes, and monocytes. * RBC count, hemoglobin, hematocrit, and MCHC decreased. MCV and MCH slightly increased. RDW increased. * Ovalocytes, microcytes, elliptocytes, and target cells present. * Normal platelet count with small, granular appearance. * Macrocytic RBCs (r/o B12/folate deficiency) or increased reticulocytes ( polychromasia). * Leukocytes with absolute/relative neutrophilia, bands (Dohle bodies and toxic granules) and mild left shift favor reactive processes. Repeat CBC was ordered due to concern for dilutional effect. Repeat values were as follows: WBC 18.9, hemoglobin 8.6, hematocrit 27.9, and platelets 183. Plan to continue monitoring throughout this admission. Patient would likely benefit from repeat studies to evaluate for anemia after she has recovered from her acute illness. Will recommend PCP followup after discharge. - Time Spent with Patient Total time spent is greater than 50% in coordination of care (as documented) at patient's floor/unit and/or counseling patient: Internal Medicine: Result - Labs CBC & Chem 7: 05/29/18 08:35 05/29/18 02:55 Labs: Short CBC 05/29/18 Range/Units 02:55 WBC 12.7 H (4.3-11.1) K/mcL Hgb 7.8 L D (11.5-15.4) g/dL Hct 25.2 L (35.3-44.9) % Plt Count 169 (140-400) K/mcL Neutrophils # 11.7 H (1.6-8.9) K/mcL BMP 05/29/18 02:55 Sodium 131 L Potassium 3.5 Chloride 103 Carbon Dioxide 19 L BUN 5 L Creatinine 0.98 Glucose 115 H Calcium 8.2 L Liver Function 05/29/18 05/29/18 Range/Units 02:55 02:55 Total Bilirubin 16.8 H 16.8 H (0.3-1.0) mg/dL Direct Bilirubin 12.4 H (0.0-0.2) mg/dL AST 128 H (13-39) Units/L ALT 47 (7-52) Units/L Alkaline Phosphatase 170 H (34-104) Units/L Albumin 3.1 L (3.5-5.7) g/dL - ABG Interpretation ABG results: PT/INR, D-dimer PT 20.0 Seconds (9.4-12.1) H 05/29/18 02:55 Consult Discharge Plan - Plan Referrals: Sonny Velazco DO [Primary Care Provider] - 06/04/18 3:00 pm <Jonnathan Ly - Last Filed: 05/29/18 18:37> Hospitalist Progress Note - Encounter Date of Encounter: 05/29/18 - Exam Vitals: Temp Pulse Resp BP Pulse Ox 97.6 F 89 14 108/76 94 05/29/18 16:32 05/29/18 16:32 05/29/18 16:32 05/29/18 16:32 05/29/18 16:32 - Assessment and Plan (1) Alcoholic hepatitis with ascites Current Visit: Yes Status: Acute (2) Tobacco dependence Current Visit: Yes Status: Chronic (3) DVT prophylaxis Current Visit: Yes Status: Acute (4) Alcohol dependence Current Visit: Yes Status: Chronic (5) Severe sepsis Current Visit: Yes Status: Acute (6) Increased ammonia level Current Visit: Yes Status: Acute (7) Jaundice Current Visit: Yes Status: Acute (8) PAYTON (acute kidney injury) Current Visit: Yes Status: Acute (9) UTI (urinary tract infection) Current Visit: Yes Status: Acute (10) Trichomoniasis of bladder Current Visit: Yes Status: Acute (11) Anemia Current Visit: Yes Status: Acute (12) Tobacco abuse Current Visit: Yes Status: Chronic - Time Spent with Patient Total time spent is greater than 50% in coordination of care (as documented) at patient's floor/unit and/or counseling patient: Internal Medicine: Result - Labs CBC & Chem 7: 05/29/18 08:35 05/29/18 02:55 Labs: Short CBC 05/29/18 05/29/18 Range/Units 02:55 08:35 WBC 12.7 H 18.9 H (4.3-11.1) K/mcL Hgb 7.8 L D 8.6 L (11.5-15.4) g/dL Hct 25.2 L 27.9 L (35.3-44.9) % Plt Count 169 183 (140-400) K/mcL Neutrophils # 11.7 H 16.9 H (1.6-8.9) K/mcL BMP 05/29/18 02:55 Sodium 131 L Potassium 3.5 Chloride 103 Carbon Dioxide 19 L BUN 5 L Creatinine 0.98 Glucose 115 H Calcium 8.2 L Liver Function 05/29/18 05/29/18 Range/Units 02:55 02:55 Total Bilirubin 16.8 H 16.8 H (0.3-1.0) mg/dL Direct Bilirubin 12.4 H (0.0-0.2) mg/dL AST 128 H (13-39) Units/L ALT 47 (7-52) Units/L Alkaline Phosphatase 170 H (34-104) Units/L Albumin 3.1 L (3.5-5.7) g/dL - ABG Interpretation ABG results: PT/INR, D-dimer PT 20.3 Seconds (9.4-12.1) H 05/29/18 10:05 - Attending Attestation I examined this patient and my medical decision-making was reviewed with the Resident Physician on 05/29/18. I agree with the documented findings, disposition and treatment plan as described except to the extent set forth below. Ms Lynn is currently admitted for acute alcoholic hepatitis. She remains moderate to high risk due to potential for worsening clinical status. Ms Lynn is doing somewhat better today. She has been on IV steroids and albumin. No fever or chills. No CP or SOB. Eating today. Exam alert Comfortable at this time Mucus membranes dry Heart reg No wheeze abd soft - no peritoneal signs No edema I/P 1. Alcoholic hepatitis 2. ETOH Further diagnoses and plan as above. <Yessenia Preston - Last Filed: 05/29/18 16:02> (7) Alcohol dependence Qualifiers: Substance use status: unspecified alcohol-induced disorder Qualified Code(s) : F10.29 - Alcohol dependence with unspecified alcohol-induced disorder (10) Anemia Qualifiers: Anemia type: unspecified type Qualified Code(s): D64.9 - Anemia, unspecified <Jonnathan Ly - Last Filed: 05/29/18 18:37> (4) Alcohol dependence Qualifiers: Substance use status: other alcohol-induced disorder Qualified Code(s): F10.288 - Alcohol dependence with other alcohol-induced disorder (9) UTI (urinary tract infection) Qualifiers: Urinary tract infection type: acute cystitis Hematuria presence: without hematuria Qualified Code(s): N30.00 - Acute cystitis without hematuria (11) Anemia Qualifiers: Anemia type: unspecified type Qualified Code(s): D64.9 - Anemia, unspecified
[2018-05-29] MEDS: Lactulose Oral Soln 20 GM/30 ML UDC PO SCH ×2 (09:08→20:06)
[2018-05-29] MEDS: Nicotine 14 MG PATCH.TD24 TD SCH (09:11)
[2018-05-29] MEDS: methylPREDNISolone 125 MG/2 ML VIAL IVP SCH ×2 (09:13→20:08)
[2018-05-29 09:30] LABS: Basophils % 0.2 %; Hematocrit 27.9 % (35.3-44.9); Hemoglobin 8.6 g/dL (11.5-15.4); Immature Granulocytes % 0.8 % (0-4); Lymphocytes # 0.9 K/mcL (0.6-4.6); Lymphocytes % 4.8 %; Mean Corpuscular HGB Conc 30.8 g/dL (31.6-35.5); Mean Corpuscular Hemoglobin 33.7 pg (28.0-33.3); Mean Corpuscular Volume 109.4 fL (83.0-100.0); Mean Platelet Volume 10.5 fL (9.4-12.4); Monocytes # 0.9 K/mcL (0.0-1.3); Monocytes % 4.8 %; Neutrophils # 16.9 K/mcL (1.6-8.9); Platelet Count 183 K/mcL (140-400); Red Blood Count 2.55 M/mcL (3.82-4.97); Red Cell Distribution Width 24.3 % (11.5-14.5); Segmented Neutrophils % 89.4 %
[2018-05-29 09:47] LABS: Anisocytosis 1+ (Not Present); Macrocytosis Present (Not Present)
[2018-05-29 09:48] LABS: Platelet Estimate Normal (Normal)
[2018-05-29 09:49] LABS: Hypochromasia Present (Not Present)
--- NOTE | 2018-05-29 10:00 | Gastroenterology Progress Note ---
<Elizabeth Ma - Last Filed: 05/29/18 13:17> Date of Encounter: 05/29/18 Time of Encounter: 08:50 - Assessment and plan (1) Anemia Current Visit: Yes Status: Acute Assessment and plan: Discussed with Dr Padgett, pt is poor candidate for anesthesia at this time due to acute alcoholic hepatitis. LDH was elevated at 404. Peripheral smear and haptoglobin ordered to rule out hemolytic anemia. Labs repeated per PCP and Hgb 8.6. Pt advised she may resume diet as no endoscopy would be done today also discussed with Dr Ly. Qualifiers: Anemia type: unspecified type Qualified Code(s): D64.9 - Anemia, unspecified (2) Ascites Current Visit: Yes Status: Acute Assessment and plan: s/p diagnostic paracentesis, distention is improved Qualifiers: Ascites type: due to alcoholic hepatitis Qualified Code(s): K70.11 - Alcoholic hepatitis with ascites (3) Elevated bilirubin Current Visit: Yes Status: Acute Assessment and plan: Likely alcoholic hepatitis, DF 45.5 was started on solumedrol. Monitor labs and fluid status. - Time Spent With Patient Total time spent is greater than 50% in coordination of care (as documented) at patient's floor/unit and/or counseling patient: - Subjective Interval history: Ms. Lynn is a 43-year old female who was admitted with acute alcoholic hepatitis. Yesterday her DF was 45.5 and she was started on steroids. Hgb this morning dropped to 7.8 from 9.5 yesterday. She was held NPO until discussed possible EGD with Dr Padgett. Face to face discussion was held with the patient and she verbalized understanding. She denies any black stools, states she had dark stools yesterday but nothing today. She reports unchanged abdominal pain and nausea when she coughs. - Constitutional Vitals: Temp Pulse Resp BP Pulse Ox 97.9 F 80 16 113/83 94 05/29/18 08:37 05/29/18 08:37 05/29/18 08:37 05/29/18 08:37 05/29/18 08:37 Exam: CONSTITUTIONAL:~alert, no acute distress.~HEAD:~normocephalic.~EYES:~jaundice.~ NECK:~no obvious swelling.~HEART:~regular rate and rhythm, no murmurs.~LUNGS:~ bilateral good air entry.~ABDOMEN:~distended, soft, tender, hepatomegaly.~ RECTAL EXAM:~Deferred.~EXTREMITIES:~no clubbing, cyanosis or edema.~SKIN:~ bruising and jaundice noted.~NEUROLOGIC:~no obvious focal defect.~~~~ Results - Labs CBC & Chem 7: 05/29/18 08:35 05/29/18 02:55 Labs: Last Result Calcium 8.2 mg/dL (8.6-10.3) L 05/29/18 02:55 Triglycerides 256 mg/dL (< 150) H 05/27/18 03:23 Peritoneal Appearance CLEAR (Clear) 05/27/18 11:15 Peritoneal Volume 14.0 mL 05/27/18 11:15 Peritoneal RBC < 0.002 M/mcL (0.000-0.002) 05/27/18 11:15 Periton Tot Nuc Cells 48 TNC/mcL (0-300) 05/27/18 11:15 Periton Band Neuts TNP 05/27/18 11:15 Periton Lymphocytes % 25.0 % 05/27/18 11:15 Periton Monocytes % 6.3 % 05/27/18 11:15 Periton Other Cells % TNP 05/27/18 11:15 Peritoneal Tot Protein < 3.0 g/dL (No Ref Range) 05/27/18 11:15 Peritoneal LDH 42 Units/L (No Ref Range) 05/27/18 11:15 Peritoneal Glucose 109 mg/dL (No Ref Range) 05/27/18 11:15 Peritoneal Amylase < 10 Units/L (No Ref Range) 05/27/18 11:15 Entire Visit Hgb 8.6 g/dL (11.5-15.4) L 05/29/18 08:35 Hct 27.9 % (35.3-44.9) L 05/29/18 08:35 PT 20.0 Seconds (9.4-12.1) H 05/29/18 02:55 Total Bilirubin 16.8 mg/dL (0.3-1.0) H 05/29/18 02:55 AST 128 Units/L (13-39) H 05/29/18 02:55 ALT 47 Units/L (7-52) 05/29/18 02:55 Ammonia 59 mcmol/L (16-53) H 05/29/18 02:55 Amylase 20 Units/L (29-103) L 05/28/18 03:20 Lipase 69 Units/L (11-82) 05/28/18 03:20 - ABG ABG results: PT/INR, D-dimer PT 20.0 Seconds (9.4-12.1) H 05/29/18 02:55 Consult Discharge Plan - Plan Referrals: Sonny Velazco DO [Primary Care Provider] - Vern Valdez DO [Resident] - 06/04/18 3:00 pm Prescriptions: Furosemide [Lasix] 20 mg PO BIDDIURETIC #60 tab Spironolactone [Aldactone] 25 mg PO DAILY #30 tablet <Felix Padgett - Last Filed: 06/03/18 12:05> Date of Encounter: 05/29/18 - Time Spent With Patient Total time spent is greater than 50% in coordination of care (as documented) at patient's floor/unit and/or counseling patient: - Constitutional Vitals: Temp Pulse Resp BP Pulse Ox 98.3 F 100 16 95/59 93 06/03/18 10:58 06/03/18 10:58 06/03/18 10:58 06/03/18 10:58 06/03/18 10:58 Results - Labs CBC & Chem 7: 06/03/18 02:33 06/03/18 02:33 Labs: Last Result Calcium 7.7 mg/dL (8.6-10.3) L 06/03/18 02:33 Triglycerides 256 mg/dL (< 150) H 05/27/18 03:23 Vitamin B12 > 1500 pg/mL (250-1100) H 05/31/18 02:57 Peritoneal Appearance CLEAR (Clear) 05/27/18 11:15 Peritoneal Volume 14.0 mL 05/27/18 11:15 Peritoneal RBC < 0.002 M/mcL (0.000-0.002) 05/27/18 11:15 Periton Tot Nuc Cells 48 TNC/mcL (0-300) 05/27/18 11:15 Periton Band Neuts TNP 05/27/18 11:15 Periton Lymphocytes % 25.0 % 05/27/18 11:15 Periton Monocytes % 6.3 % 05/27/18 11:15 Periton Other Cells % TNP 05/27/18 11:15 Peritoneal Tot Protein < 3.0 g/dL (No Ref Range) 05/27/18 11:15 Peritoneal LDH 42 Units/L (No Ref Range) 05/27/18 11:15 Peritoneal Glucose 109 mg/dL (No Ref Range) 05/27/18 11:15 Peritoneal Amylase < 10 Units/L (No Ref Range) 05/27/18 11:15 Entire Visit Hgb 9.3 g/dL (11.5-15.4) L 06/03/18 02:33 Hct 29.8 % (35.3-44.9) L 06/03/18 02:33 Haptoglobin 50 mg/dL (30-200) 05/29/18 10:05 PT 20.9 Seconds (9.4-12.1) H 06/03/18 02:33 Total Bilirubin 17.7 mg/dL (0.3-1.0) H 06/03/18 02:33 AST 94 Units/L (13-39) H 06/03/18 02:33 ALT 47 Units/L (7-52) 06/03/18 02:33 Ammonia 111 mcmol/L (16-53) H 06/03/18 03:12 Amylase 20 Units/L (29-103) L 05/28/18 03:20 Lipase 69 Units/L (11-82) 05/28/18 03:20 - ABG ABG results: PT/INR, D-dimer PT 20.9 Seconds (9.4-12.1) H 06/03/18 02:33 - Impressions Impressions Abdomen/Pelvis Ultrasound 06/01/18 09:00 IMPRESSION: Limited exam with nonvisualization of the segmental portal veins and middle hepatic vein. The remaining visualized veins are otherwise grossly patent with normal direction of flow. D/ / 06/01/2018 12:16:00 Hillary Grove MD / milli Interpreting Provider: Hillary Grove MD
[2018-05-29] MEDS: Nicotine 21 MG PATCH.TD24 TD SCH (10:36)
[2018-05-29] MEDS: Benzonatate 100 MG CAPSULE PO PRN ×3 (10:39→23:59)
[2018-05-29 11:25] LABS: INR 1.8; Prothrombin Time 20.3 Seconds (9.4-12.1)
[2018-05-29] MEDS: MetroNIDAZOLE 250 MG/50 ML 250 MG/50 ML BAG IVPB SCH (12:15)
[2018-05-29] MEDS ORDERED: cefTRIAXone 1,000 MG in 0.9 % Sodium Chloride Mini Bag 100 ML IVPB SCH (16:00)
--- NOTE | 2018-05-29 16:03 | Electrocardiograph Report ---
[address] [address] Test Date: 2018-05-26 Pat Name: Osmani Lynn Department: EXAM19 Room: 2N04 Gender: F Risk Professional: : 1975 Requested By: Merissa Ballard Order Number: [id number] Reading MD: Ayana Velarde Measurements Intervals [place] Rate: 110 P: -76 KS: 130 QRS: 68 QRSD: 88 T: 19 QT: 367 QTc: 497 Interpretive Statements Ectopic atrial tachycardia Low voltage, extremity leads Borderline prolonged QT interval Nonspecific ST-T changes Electronically Signed On 05-29-2018 16:01:45 EDT by Ayana Velarde
[2018-05-30] MEDS: MetroNIDAZOLE 250 MG/50 ML 250 MG/50 ML BAG IVPB SCH ×3 (01:29→23:08)
[2018-05-30] MEDS: Albumin 25% 25gram/100mL 25 GM/100 ML IV.SOLN IVPB SCH (02:37)
[2018-05-30] MEDS: OXYCODONE Oral CONC 10 MG/0.5 ML ORAL.SYG SL PRN ×6 (04:04→21:04)
[2018-05-30 05:03] LABS: Hematocrit 27.5 % (35.3-44.9); Hemoglobin 8.4 g/dL (11.5-15.4); Immature Granulocytes % 1.2 % (0-4); Lymphocytes # 0.6 K/mcL (0.6-4.6); Lymphocytes % 2.9 %; Mean Corpuscular HGB Conc 30.5 g/dL (31.6-35.5); Mean Corpuscular Volume 111.3 fL (83.0-100.0); Mean Platelet Volume 10.2 fL (9.4-12.4); Monocytes # 0.8 K/mcL (0.0-1.3); Neutrophils # 18.4 K/mcL (1.6-8.9); Platelet Count 162 K/mcL (140-400); Red Blood Count 2.47 M/mcL (3.82-4.97); Red Cell Distribution Width 24.6 % (11.5-14.5); Segmented Neutrophils % 91.9 %
[2018-05-30 05:04] LABS: VBG Ionized Calcium 1.16 mmol/L (1.15-1.35)
[2018-05-30 05:18] LABS: Platelet Estimate Normal (Normal)
[2018-05-30 05:19] LABS: Anisocytosis 2+ (Not Present); Hypochromasia Present (Not Present); Macrocytosis Present (Not Present)
[2018-05-30 05:27] LABS: Alanine Aminotransferase 42 Units/L (7-52); Albumin 3.4 g/dL (3.5-5.7); Albumin/Globulin Ratio 2.1 (1.1-2.2); Alkaline Phosphatase 153 Units/L (34-104); Aspartate Amino Transferase 98 Units/L (13-39); BUN/Creatinine Ratio 6 (6-26); Bilirubin,Total 16.5 mg/dL (0.3-1.0); Blood Urea Nitrogen 5 mg/dL (6-20); Calcium 8.6 mg/dL (8.6-10.3); Carbon Dioxide 19 mEq/L (23-29); Chloride 106 mEq/L (98-107); Globulin 1.6 g/dL (2.4-3.5); Glucose 114 mg/dL (70-105); Osmolality,Calculated 278 (280-300); Potassium 3.6 mEq/L (3.5-5.1); Sodium 135 mEq/L (136-145); eGFR For Non-African Americans > 60 (> 60)
[2018-05-30 06:08] LABS: INR 2.1; Prothrombin Time 23.4 Seconds (9.4-12.1)
[2018-05-30] MEDS: methylPREDNISolone 125 MG/2 ML VIAL IVP SCH (08:37)
[2018-05-30] MEDS: Pantoprazole 40 MG VIAL IVP SCH (08:38)
[2018-05-30] MEDS: *HR* Heparin 5,000 UNIT/ML VIAL SQ SCH (08:38)
[2018-05-30] MEDS: Nicotine 21 MG PATCH.TD24 TD SCH (08:38)
[2018-05-30] MEDS: Lactulose Oral Soln 20 GM/30 ML UDC PO SCH ×2 (08:39→21:02)
[2018-05-30] MEDS: Benzonatate 100 MG CAPSULE PO PRN ×3 (08:43→21:02)
[2018-05-30] MEDS: Ondansetron 4 MG/2 ML VIAL IVP PRN ×3 (08:43→23:14)
[2018-05-30] MEDS ORDERED: MethylPREDNISolone 40 MG/ML VIAL IVP SCH ×2 (10:00→21:00)
--- NOTE | 2018-05-30 10:16 | Internal Med Progress Note ---
Hospitalist Progress Note - Encounter Date of Encounter: 05/30/18 Time of Encounter: 09:45 - Subjective Interval History: Ms Leah is currently admitted for alcoholic hepatitis. She remains moderate to high risk due to potential for worsening clinical status. Ms feels more swollen. She thinks her abdomen and legs are much larger. Tearful. No new pain. Tolerating diet. - Exam Vitals: Temp Pulse Resp BP Pulse Ox 97.9 F 83 15 109/75 90 05/30/18 07:20 05/30/18 07:20 05/30/18 07:20 05/30/18 07:20 05/30/18 07:20 Exam: General: Alert and oriented. Mild distress due to physical condition. Does not appear confused. Skin: Still jaundiced. Plaque psoriasis present diffusely. H: Normocephalic. EENT: EOMI, pupils equal, round and reactive. Mucus membranes moist. No lesion. Cardiovascular: Normal S1 & S2, Pulse regular. Lungs: Decreased breath sounds. No wheeze or rhonchi. Abdomen: Soft. Good bowel sounds. Diffusely tender - no peritoneal signs. Extremities: Significant edema bilaterally. Neurological: Normal cognition and motor skills. Pulses: Carotid and radial pulses normal +2. Rest of the physical exam is non contributory - Assessment and Plan (1) Alcoholic hepatitis with ascites Current Visit: Yes Status: Acute Assessment and Plan: Liver function tests slowly improving though INR slightly higher today. Mentating appropriately. Decrease steroid dosing. Recheck labs tomorrow. (2) DVT prophylaxis Current Visit: Yes Status: Acute Assessment and Plan: Heparin stopped as INR 2.1 at this time. (3) Alcohol dependence Current Visit: Yes Status: Chronic Assessment and Plan: Patient has a known history of alcohol abuse and recently suffered a withdrawal seizure when she was incarcerated and unable to drink for several days. Ethyl alcohol level on admission was 38. Per report, the patient was found to have approximately one gallon of vodka hidden in her purse that was made known to staff by her mother while the patient was out of the room. She does not appear to be demonstrating withdrawal symptoms at this time. [facility] protocol in place. Patient would benefit from long-term alcohol cessation program upon discharge. Social work consulted for recommendations regarding management of patient's alcohol abuse. 05/28 - Patient has not demonstrated any signs of alcohol withdrawal as of yet. Will continue to assess per [facility] protocol. 05/29 - Patient has not demonstrated any altered mental status or signs of withdrawal. Nursing staff is completing regular evaluations per [facility] protocol. Will continue close monitoring. 05/30 - Continues to remain alert and oriented. No signs of withdrawal. (4) Severe sepsis Current Visit: Yes Status: Resolved Assessment and Plan: Patient met sepsis criteria on admission, with elevated WBC count, tachycardia, and presumed source of infection. She was started on zosyn. Diagnostic paracentesis was performed, with collection of ~60mL of clear, straw-colored fluid. Peritoneal cultures pending. Will continue IV fluid hydration and close monitoring. Due to variable lactic acid, will perform repeat studies Q4H x 3. 05/28 - WBC count remained elevated today at 24.1. Lactic acid today 2.6 --> 2.7 --> 3.5. Repeat lactic acid pending. Preliminary results from diagnostic paracentesis demonstrated many WBCs, but no bacteria on gram stain. Will continue IV zosyn with close monitoring overnight. 05/29 - WBC improved this morning. Initial laboratory studies demonstrated WBC count of 12.7; however, CBC was redrawn due to concerns for dilution. Repeat CBC revealed WBC count of 8.6. Lactic acid this morning was 3.2, which was decreased to 3.0 on repeat study. Discontinued IV zosyn today and started therapy with ceftriaxone and metronidazole. Patient reports feeling better and has been able to tolerate advancement of diet. Will continue close monitoring and assessment. 05/30 - WBC remains elevated though is on steroids. Lactate is now 2.0. Currently on Ceftriaxone and metronidazole (for Trichomonas). (5) Increased ammonia level Current Visit: Yes Status: Acute Assessment and Plan: Initial ammonia level was found to be 58; repeat today was 50, with 3+ icterus noted. Patient started on lactulose 10mg BID. Will continue to monitor with repeat laboratory studies tomorrow. 05/29 - Patient had increase in ammonia to 59. Will continue lactulose 10mg BID with close watch for development of neurologic symptoms or encephalopathy. 05/30 - ammonia about the same. Continue Lactulose. (6) Jaundice Current Visit: Yes Status: Acute Assessment and Plan: Patient is visibly jaundiced, which has reportedly been progressing over the last few months. Laboratory studies demonstrated multiple abnormalities in liver function tests. Hepatitis screening negative. Will continue to monitor closely with repeat studies in the morning. Appreciate gastroenterology input in management of this patient. 05/28 - Patient remains deeply jaundiced with obvious scleral icterus. Liver edge is palpable several millimeters beyond the costal margin. Patient had repeat liver testing today, with the following changes from initial studies: - Total bilirubin = 17.0 (from 14.5) - AST = 199 (from 186) - ALT = 58 (from 63) - Alkaline phosphatase = 239 (from 318) - Ammonia = 50 (from 58) - PT/INR = 18.3/1.6 (from 15.3/1.4) Due to patient's decreased discriminatory function, the following therapies were initiated per GI recommendations: - Solumedrol 60mg IV Q24H - Albumin 50g Q24H x 3 days - 500mL 0.9% NaCl with 100mg thiamine and 1mg folic acid infused at 100mL/ hour x 3 (total volume of 1500mL NS) Plan to continue to assess hepatic function via laboratory studies. Repeat PT/ INR in the morning. Per GI request, patient is NOT to receive any vitamin K supplementation, as it would alter her INR. Will continue to monitor closely. Discussed with patient the possibility of transfer to [facility] or [place] where hepatology is available, if INR should reach >2.0. Patient voiced understanding and agreement with this plan. 05/29 - Patient appears to be less jaundiced today. Repeat liver function studies demonstrated the following changes: - Total bilirubin = 14.5 --> 17.0 --> 16.8 - Direct bilirubin = 9.2 --> 8.5 --> 12.4 - Indirect bilirubin = 5.3 --> 6.2 --> 4.4 - AST = 186 --> 199 --> 128 - ALT = 63 --> 58 --> 47 - Alkaline phosphatase = 318 --> 239 --> 170 - Ammonia = 58 --> 50 --> 59 - PT/INR = 15.3/1.4 --> 18.3/1.6 --> 20.3/1.8 Patient is receiving albumin 25g IVPB Q12H. She has received 3 bags thus far, with improvement in serum albumin to 3.5 (2.1 on initial lab studies. Will continue IV solumedrol 60mg as planned and close watch on liver function tests. Appreciate GI input in management of this patient. 05/30 - Bilirubin about the same. Continue as is for now. (7) UTI (urinary tract infection) Current Visit: Yes Status: Acute Assessment and Plan: At the time of admission, urinalysis was significant for 30-50 RBC and 50-100 WBC, with many squamous cells and bacteria present. Patient had a repeat urinalysis last night after placement of cooper catheter, which was significant for the following findings: protein 30, 15 ketones, positive nitrite, large bilirubin, moderate leukocyte esterase, 15-30 RBC/WBC, moderate bacteria, and moderate hyaline casts. Urine culture was not ordered at that time due to presence of squamous epithelial cells; however, culture was ordered today in light of positive nitrite and presence of leukocyte esterase. Patient is currently on antibacterial therapy with zosyn. Will adjust antibiotics if needed based on results of culture and sensitivity studies. 05/29 - Preliminary urine culture results demonstrate gram negative rods. Patient was started on ceftriaxone 1000mg IV Q24H. Will adjust antibiotic therapy based on culture and sensitivity results if needed. 05/30 - Stop abx after today. Has E. coli sensitive to everything. (8) Trichomoniasis of bladder Current Visit: Yes Status: Acute Assessment and Plan: Trichomonas was found to be positive on urinalysis performed in the emergency department. At time of admission, patient had contraindication to treatment with flagyl due to ethyl alcohol level of 38. As there are no other treatment options for this infection, discussed with pharmacy regarding when it would be safe to start her on flagyl. Per their recommendations, plan to start patient on flagyl 500mg BID x 7 days for treatment of trichomoniasis. 05/29 - Intiated therapy with flagyl for treatment of trichomoniasis. As patient' s Child-Hernandez score places her in class C, pharmacy recommended dose reduction. Patient started on 250mg IV BID, with plan for a total of 7 days of treatment. 05/30 - on Flagyl (9) Anemia Current Visit: Yes Status: Suspected Assessment and Plan: Patient demonstrated a drastic decrease in hemoglobin and hematocrit on morning laboratories, with values of 7.8/25.2 (from 9.5/30.4 yesterday). Gastroenterology expressed concern for possibility of acute GI bleed; however, patient was deemed to be a poor candidate for EGD as she would likely not tolerate anesthesia well in the setting of her acute hepatic failure. Due to concern for possible hemolytic anemia, peripheral blood smear was ordered. Pertinent findings were as follows: * Increased leukocyte count with absolute neutrophilia. Leukocytes mainly neutrophils, lymphocytes, and monocytes. * RBC count, hemoglobin, hematocrit, and MCHC decreased. MCV and MCH slightly increased. RDW increased. * Ovalocytes, microcytes, elliptocytes, and target cells present. * Normal platelet count with small, granular appearance. * Macrocytic RBCs (r/o B12/folate deficiency) or increased reticulocytes ( polychromasia). * Leukocytes with absolute/relative neutrophilia, bands (Dohle bodies and toxic granules) and mild left shift favor reactive processes. Repeat CBC was ordered due to concern for dilutional effect. Repeat values were as follows: WBC 18.9, hemoglobin 8.6, hematocrit 27.9, and platelets 183. Plan to continue monitoring throughout this admission. Patient would likely benefit from repeat studies to evaluate for anemia after she has recovered from her acute illness. Will recommend PCP followup after discharge. 05/30 - macrocytic. Pt at risk for B12 with gastric bypass and alcohol. B12 and RBC folate ordered. (10) Tobacco abuse Current Visit: Yes Status: Chronic Assessment and Plan: Cessation counselling (11) Psoriasis Current Visit: Yes Status: Chronic Assessment and Plan: Continue Betamethasone Dipropionate Cream Outpatient follow-up (12) Fluid overload Current Visit: Yes Status: Acute Assessment and Plan: Related to liver failure. Cautious diuresis with monitoring renal function. - Time Spent with Patient Total time spent is greater than 50% in coordination of care (as documented) at patient's floor/unit and/or counseling patient: Internal Medicine: Result - Labs CBC & Chem 7: 05/30/18 04:49 05/30/18 04:49 Labs: Short CBC 05/29/18 05/30/18 Range/Units 08:35 04:49 WBC 18.9 H 20.0 H (4.3-11.1) K/mcL Hgb 8.6 L 8.4 L (11.5-15.4) g/dL Hct 27.9 L 27.5 L (35.3-44.9) % Plt Count 183 162 (140-400) K/mcL Neutrophils # 16.9 H 18.4 H (1.6-8.9) K/mcL BMP 09/22/18 04:49 Sodium 135 L Potassium 3.6 Chloride 106 Carbon Dioxide 19 L BUN 5 L Creatinine 0.85 Glucose 114 H Calcium 8.6 Liver Function 05/30/18 Range/Units 04:49 Total Bilirubin 16.5 H (0.3-1.0) mg/dL AST 98 H (13-39) Units/L ALT 42 (7-52) Units/L Alkaline Phosphatase 153 H (34-104) Units/L Albumin 3.4 L (3.5-5.7) g/dL - ABG Interpretation ABG results: PT/INR, D-dimer PT 23.4 Seconds (9.4-12.1) H 05/30/18 05:25 Consult Discharge Plan - Plan Referrals: Sonny Velazco DO [Primary Care Provider] - Vern Valdez DO [Resident] - 06/04/18 3:00 pm (3) Alcohol dependence Qualifiers: Substance use status: other alcohol-induced disorder Qualified Code(s): F10.288 - Alcohol dependence with other alcohol-induced disorder (7) UTI (urinary tract infection) Qualifiers: Urinary tract infection type: acute cystitis Hematuria presence: without hematuria Qualified Code(s): N30.00 - Acute cystitis without hematuria (9) Anemia Qualifiers: Anemia type: B12 deficiency Vitamin B12 deficiency anemia type: other dietary B12 deficiency Qualified Code(s): D51.3 - Other dietary vitamin B12 deficiency anemia (12) Fluid overload Qualifiers: Hypervolemia type: other Qualified Code(s): E87.79 - Other fluid overload
[2018-05-30] MEDS: Furosemide 20 MG/2 ML VIAL IVP SCH ×2 (11:44→16:45)
[2018-05-30] MEDS: *HR* Phytonadione 10 MG/ML AMPUL SQ SCH (19:19)
[2018-05-30] MEDS: PrednisoLONE Oral Soln 15 MG/5 ML UDC PO SCH (19:22)
[2018-05-31] MEDS: OXYCODONE Oral CONC 10 MG/0.5 ML ORAL.SYG SL PRN ×5 (01:08→20:01)
[2018-05-31] MEDS: Benzonatate 100 MG CAPSULE PO PRN ×2 (03:05→12:35)
[2018-05-31 03:09] LABS: Hematocrit 30.7 % (35.3-44.9); Hemoglobin 9.5 g/dL (11.5-15.4); Lymphocytes # 0.9 K/mcL (0.6-4.6); Lymphocytes % 3.9 %; Mean Corpuscular HGB Conc 30.9 g/dL (31.6-35.5); Mean Corpuscular Hemoglobin 33.8 pg (28.0-33.3); Mean Corpuscular Volume 109.3 fL (83.0-100.0); Mean Platelet Volume 11.3 fL (9.4-12.4); Monocytes # 1.2 K/mcL (0.0-1.3); Monocytes % 5.4 %; Neutrophils # 20.1 K/mcL (1.6-8.9); Nucleated Red Blood Cells 0.1 /100 WBC (0); Platelet Count 164 K/mcL (140-400); Red Blood Count 2.81 M/mcL (3.82-4.97); Red Cell Distribution Width 23.9 % (11.5-14.5); Segmented Neutrophils % 89.7 %
[2018-05-31 03:14] LABS: INR 1.9; Prothrombin Time 20.9 Seconds (9.4-12.1)
[2018-05-31 03:32] LABS: Platelet Estimate Normal (Normal)
[2018-05-31 03:33] LABS: Anisocytosis 2+ (Not Present)
[2018-05-31 04:05] LABS: Alanine Aminotransferase 44 Units/L (7-52); Albumin 3.1 g/dL (3.5-5.7); Albumin/Globulin Ratio 1.7 (1.1-2.2); Alkaline Phosphatase 125 Units/L (34-104); Aspartate Amino Transferase 97 Units/L (13-39); BUN/Creatinine Ratio 6 (6-26); Bilirubin,Total 16.5 mg/dL (0.3-1.0); Blood Urea Nitrogen 6 mg/dL (6-20); Calcium 8.4 mg/dL (8.6-10.3); Carbon Dioxide 20 mEq/L (23-29); Chloride 107 mEq/L (98-107); Globulin 1.8 g/dL (2.4-3.5); Glucose 116 mg/dL (70-105); Osmolality,Calculated 283 (280-300); Potassium 3.8 mEq/L (3.5-5.1); Sodium 137 mEq/L (136-145); Total Protein 4.9 g/dL (6.4-8.9); eGFR For Non-African Americans > 60 (> 60)
[2018-05-31] MEDS: Ondansetron 4 MG/2 ML VIAL IVP PRN ×3 (05:28→20:00)
[2018-05-31] MEDS: Furosemide 20 MG/2 ML VIAL IVP SCH ×2 (09:34→17:42)
[2018-05-31] MEDS: PrednisoLONE Oral Soln 15 MG/5 ML UDC PO SCH (09:35)
[2018-05-31] MEDS: Nicotine 21 MG PATCH.TD24 TD SCH (09:35)
--- NOTE | 2018-05-31 09:35 | Internal Med Progress Note ---
Hospitalist Progress Note - Encounter Date of Encounter: 05/31/18 Time of Encounter: 09:35 - Subjective Interval History: Ms Lynn is currently admitted for alcoholic hepatitis. She remains moderate to high risk due to potential for worsening clinical status. Ms Lynn is not sure how she feels at this time. Some discomfort everywhere. No CP. Some dyspnea with movement. Edema still present. Tolerating diet. Wants more of the high protein drink. No fever or chills at this time. - Exam Vitals: Temp Pulse Resp BP Pulse Ox 97.2 F L 53 20 105/71 93 05/31/18 03:30 05/31/18 03:30 05/31/18 03:30 05/31/18 03:30 05/31/18 03:30 Exam: General: Alert and oriented. Mild distress. No confusion. Skin: Still jaundiced. Plaque psoriasis present diffusely. H: Normocephalic. EENT: EOMI, pupils equal, round and reactive. Mucus membranes moist. No lesion. Cardiovascular: Normal S1 & S2, Pulse regular. Lungs: Decreased breath sounds. No wheeze or rhonchi. Abdomen: Soft. Good bowel sounds. Diffusely tender - no peritoneal signs. Extremities: Significant edema bilaterally. Maybe a little better than yesterday. Neurological: Normal cognition and motor skills. Pulses: Carotid and radial pulses normal +2. Rest of the physical exam is non contributory - Assessment and Plan (1) Fluid overload Current Visit: Yes Status: Acute Assessment and Plan: Related to liver failure. Spirinolactone added today. Continue Lasix. (2) Alcoholic hepatitis with ascites Current Visit: Yes Status: Acute Assessment and Plan: Continues to slowly improve. Currently on Prednisolone 40mg daily. Continue current treatment. Vit K ordered. (3) DVT prophylaxis Current Visit: Yes Status: Acute Assessment and Plan: Heparin stopped. Reassess as INR decreases. (4) Alcohol dependence Current Visit: Yes Status: Chronic Assessment and Plan: Patient has a known history of alcohol abuse and recently suffered a withdrawal seizure when she was incarcerated and unable to drink for several days. Ethyl alcohol level on admission was 38. Per report, the patient was found to have approximately one gallon of vodka hidden in her purse that was made known to staff by her mother while the patient was out of the room. She does not appear to be demonstrating withdrawal symptoms at this time. [facility] protocol in place. Patient would benefit from long-term alcohol cessation program upon discharge. Social work consulted for recommendations regarding management of patient's alcohol abuse. 05/28 - Patient has not demonstrated any signs of alcohol withdrawal as of yet. Will continue to assess per [facility] protocol. 05/29 - Patient has not demonstrated any altered mental status or signs of withdrawal. Nursing staff is completing regular evaluations per [facility] protocol. Will continue close monitoring. 05/30 - Continues to remain alert and oriented. No signs of withdrawal. 05/31 - No signs of withdrawal. (5) Increased ammonia level Current Visit: Yes Status: Acute Assessment and Plan: Initial ammonia level was found to be 58; repeat today was 50, with 3+ icterus noted. Patient started on lactulose 10mg BID. Will continue to monitor with repeat laboratory studies tomorrow. 05/29 - Patient had increase in ammonia to 59. Will continue lactulose 10mg BID with close watch for development of neurologic symptoms or encephalopathy. 05/30 - ammonia about the same. Continue Lactulose. 05/31 - Continuing lactulose. (6) Jaundice Current Visit: Yes Status: Acute Assessment and Plan: Patient is visibly jaundiced, which has reportedly been progressing over the last few months. Laboratory studies demonstrated multiple abnormalities in liver function tests. Hepatitis screening negative. Will continue to monitor closely with repeat studies in the morning. Appreciate gastroenterology input in management of this patient. 05/28 - Patient remains deeply jaundiced with obvious scleral icterus. Liver edge is palpable several millimeters beyond the costal margin. Patient had repeat liver testing today, with the following changes from initial studies: - Total bilirubin = 17.0 (from 14.5) - AST = 199 (from 186) - ALT = 58 (from 63) - Alkaline phosphatase = 239 (from 318) - Ammonia = 50 (from 58) - PT/INR = 18.3/1.6 (from 15.3/1.4) Due to patient's decreased discriminatory function, the following therapies were initiated per GI recommendations: - Solumedrol 60mg IV Q24H - Albumin 50g Q24H x 3 days - 500mL 0.9% NaCl with 100mg thiamine and 1mg folic acid infused at 100mL/ hour x 3 (total volume of 1500mL NS) Plan to continue to assess hepatic function via laboratory studies. Repeat PT/ INR in the morning. Per GI request, patient is NOT to receive any vitamin K supplementation, as it would alter her INR. Will continue to monitor closely. Discussed with patient the possibility of transfer to [facility] or [place] where hepatology is available, if INR should reach >2.0. Patient voiced understanding and agreement with this plan. 05/29 - Patient appears to be less jaundiced today. Repeat liver function studies demonstrated the following changes: - Total bilirubin = 14.5 --> 17.0 --> 16.8 - Direct bilirubin = 9.2 --> 8.5 --> 12.4 - Indirect bilirubin = 5.3 --> 6.2 --> 4.4 - AST = 186 --> 199 --> 128 - ALT = 63 --> 58 --> 47 - Alkaline phosphatase = 318 --> 239 --> 170 - Ammonia = 58 --> 50 --> 59 - PT/INR = 15.3/1.4 --> 18.3/1.6 --> 20.3/1.8 Patient is receiving albumin 25g IVPB Q12H. She has received 3 bags thus far, with improvement in serum albumin to 3.5 (2.1 on initial lab studies. Will continue IV solumedrol 60mg as planned and close watch on liver function tests. Appreciate GI input in management of this patient. 05/30 - Bilirubin about the same. Continue as is for now. 05/31 - bilirubin unchanged. (7) UTI (urinary tract infection) Current Visit: Yes Status: Resolved Assessment and Plan: At the time of admission, urinalysis was significant for 30-50 RBC and 50-100 WBC, with many squamous cells and bacteria present. Patient had a repeat urinalysis last night after placement of cooper catheter, which was significant for the following findings: protein 30, 15 ketones, positive nitrite, large bilirubin, moderate leukocyte esterase, 15-30 RBC/WBC, moderate bacteria, and moderate hyaline casts. Urine culture was not ordered at that time due to presence of squamous epithelial cells; however, culture was ordered today in light of positive nitrite and presence of leukocyte esterase. Patient is currently on antibacterial therapy with zosyn. Will adjust antibiotics if needed based on results of culture and sensitivity studies. 05/29 - Preliminary urine culture results demonstrate gram negative rods. Patient was started on ceftriaxone 1000mg IV Q24H. Will adjust antibiotic therapy based on culture and sensitivity results if needed. 05/30 - Stop abx after today. Has E. coli sensitive to everything. 05/31 - abx completed. (8) Trichomoniasis of bladder Current Visit: Yes Status: Acute Assessment and Plan: Trichomonas was found to be positive on urinalysis performed in the emergency department. At time of admission, patient had contraindication to treatment with flagyl due to ethyl alcohol level of 38. As there are no other treatment options for this infection, discussed with pharmacy regarding when it would be safe to start her on flagyl. Per their recommendations, plan to start patient on flagyl 500mg BID x 7 days for treatment of trichomoniasis. 05/29 - Intiated therapy with flagyl for treatment of trichomoniasis. As patient' s Child-Hernandez score places her in class C, pharmacy recommended dose reduction. Patient started on 250mg IV BID, with plan for a total of 7 days of treatment. 05/30 - on Flagyl 05/31 - continue IV Flagyl. (9) Anemia Current Visit: Yes Status: Suspected Assessment and Plan: Patient demonstrated a drastic decrease in hemoglobin and hematocrit on morning laboratories, with values of 7.8/25.2 (from 9.5/30.4 yesterday). Gastroenterology expressed concern for possibility of acute GI bleed; however, patient was deemed to be a poor candidate for EGD as she would likely not tolerate anesthesia well in the setting of her acute hepatic failure. Due to concern for possible hemolytic anemia, peripheral blood smear was ordered. Pertinent findings were as follows: * Increased leukocyte count with absolute neutrophilia. Leukocytes mainly neutrophils, lymphocytes, and monocytes. * RBC count, hemoglobin, hematocrit, and MCHC decreased. MCV and MCH slightly increased. RDW increased. * Ovalocytes, microcytes, elliptocytes, and target cells present. * Normal platelet count with small, granular appearance. * Macrocytic RBCs (r/o B12/folate deficiency) or increased reticulocytes ( polychromasia). * Leukocytes with absolute/relative neutrophilia, bands (Dohle bodies and toxic granules) and mild left shift favor reactive processes. Repeat CBC was ordered due to concern for dilutional effect. Repeat values were as follows: WBC 18.9, hemoglobin 8.6, hematocrit 27.9, and platelets 183. Plan to continue monitoring throughout this admission. Patient would likely benefit from repeat studies to evaluate for anemia after she has recovered from her acute illness. Will recommend PCP followup after discharge. 05/30 - macrocytic. Pt at risk for B12 with gastric bypass and alcohol. B12 and RBC folate ordered. 05/31 - B12 level OK. Will check MMA tomorrow. Most likely macrocytosis related to liver disease. (10) Tobacco abuse Current Visit: Yes Status: Chronic Assessment and Plan: Cessation counselling (11) Psoriasis Current Visit: Yes Status: Chronic Assessment and Plan: Continue Betamethasone Dipropionate Cream Outpatient follow-up - Time Spent with Patient Total time spent is greater than 50% in coordination of care (as documented) at patient's floor/unit and/or counseling patient: Internal Medicine: Result - Labs CBC & Chem 7: 05/31/18 02:57 05/31/18 02:57 Labs: Short CBC 05/31/18 Range/Units 02:57 WBC 22.4 H (4.3-11.1) K/mcL Hgb 9.5 L (11.5-15.4) g/dL Hct 30.7 L (35.3-44.9) % Plt Count 164 (140-400) K/mcL Neutrophils # 20.1 H (1.6-8.9) K/mcL BMP 05/31/18 02:57 Sodium 137 Potassium 3.8 Chloride 107 Carbon Dioxide 20 L BUN 6 Creatinine 0.93 Glucose 116 H Calcium 8.4 L Liver Function 05/31/18 Range/Units 02:57 Total Bilirubin 16.5 H (0.3-1.0) mg/dL AST 97 H (13-39) Units/L ALT 44 (7-52) Units/L Alkaline Phosphatase 125 H (34-104) Units/L Albumin 3.1 L (3.5-5.7) g/dL - ABG Interpretation ABG results: PT/INR, D-dimer PT 20.9 Seconds (9.4-12.1) H 05/31/18 02:57 - Impressions Impressions Chest X-Ray 05/30/18 09:48 IMPRESSION: Left greater than right perihilar predominant airspace disease. Differential considerations include asymmetric edema versus multifocal infection. RECOMMENDATION: Patient should receive a follow-up chest radiograph in 8 weeks to ensure resolution. D/ / Chidi Jimenez / Chiid Jimenez Interpreting Provider: Chidi Jimenez Consult Discharge Plan - Plan Referrals: Sonny Velazco DO [Primary Care Provider] - Vern Valdez DO [Resident] - 06/04/18 3:00 pm (1) Fluid overload Qualifiers: Hypervolemia type: other Qualified Code(s): E87.79 - Other fluid overload (4) Alcohol dependence Qualifiers: Substance use status: other alcohol-induced disorder Qualified Code(s): F10.288 - Alcohol dependence with other alcohol-induced disorder (7) UTI (urinary tract infection) Qualifiers: Urinary tract infection type: acute cystitis Hematuria presence: without hematuria Qualified Code(s): N30.00 - Acute cystitis without hematuria (9) Anemia Qualifiers: Anemia type: B12 deficiency Vitamin B12 deficiency anemia type: other dietary B12 deficiency Qualified Code(s): D51.3 - Other dietary vitamin B12 deficiency anemia
[2018-05-31] MEDS: Lactulose Oral Soln 20 GM/30 ML UDC PO SCH ×2 (09:36→20:00)
[2018-05-31] MEDS: *HR* Phytonadione 10 MG/ML AMPUL SQ SCH (09:36)
[2018-05-31] MEDS: Spironolactone 25 MG TABLET PO SCH (10:00)
[2018-05-31] MEDS: MetroNIDAZOLE 250 MG/50 ML 250 MG/50 ML BAG IVPB SCH (12:35)
[2018-06-01] MEDS: MetroNIDAZOLE 250 MG/50 ML 250 MG/50 ML BAG IVPB SCH ×2 (00:58→13:15)
[2018-06-01] MEDS: Ondansetron 4 MG/2 ML VIAL IVP PRN ×3 (00:59→20:33)
[2018-06-01] MEDS: OXYCODONE Oral CONC 10 MG/0.5 ML ORAL.SYG SL PRN ×3 (00:59→20:33)
[2018-06-01] MEDS: *HR* Phytonadione 10 MG/ML AMPUL SQ SCH (08:05)
[2018-06-01] MEDS: Furosemide 20 MG/2 ML VIAL IVP SCH ×2 (08:07→17:23)
[2018-06-01 08:08] LABS: Nucleated Red Blood Cells 0.4 /100 WBC (0)
[2018-06-01 08:09] LABS: Eosinophils # 0.3 K/mcL (0.0-0.6); Hematocrit 33.5 % (35.3-44.9); Hemoglobin 9.4 g/dL (11.5-15.4); Mean Corpuscular HGB Conc 28.1 g/dL (31.6-35.5); Mean Corpuscular Hemoglobin 33.2 pg (28.0-33.3); Mean Corpuscular Volume 118.4 fL (83.0-100.0); Platelet Count 127 K/mcL (140-400); Red Blood Count 2.83 M/mcL (3.82-4.97); Red Cell Distribution Width 23.9 % (11.5-14.5)
[2018-06-01] MEDS: Nicotine 21 MG PATCH.TD24 TD SCH (08:11)
[2018-06-01 08:12] LABS: INR 1.7; Prothrombin Time 19.1 Seconds (9.4-12.1)
[2018-06-01 08:25] LABS: Alanine Aminotransferase 47 Units/L (7-52); Albumin/Globulin Ratio 1.5 (1.1-2.2); Alkaline Phosphatase 148 Units/L (34-104); Aspartate Amino Transferase 100 Units/L (13-39); BUN/Creatinine Ratio 8 (6-26); Bilirubin,Total 17.4 mg/dL (0.3-1.0); Blood Urea Nitrogen 8 mg/dL (6-20); Calcium 8.6 mg/dL (8.6-10.3); Carbon Dioxide 23 mEq/L (23-29); Chloride 104 mEq/L (98-107); Glucose 73 mg/dL (70-105); Osmolality,Calculated 283 (280-300); Sodium 138 mEq/L (136-145); eGFR For Non-African Americans > 60 (> 60)
[2018-06-01 08:44] LABS: Lymphocytes # 1.6 K/mcL (0.6-4.6); Monocytes # 0.6 K/mcL (0.0-1.3); Neutrophils # 13.5 K/mcL (1.6-8.9); Platelet Estimate Normal (Normal)
[2018-06-01 08:45] LABS: Target Cells 1+ (Not Present)
[2018-06-01 08:46] LABS: Anisocytosis 1+ (Not Present); Hypochromasia Present (Not Present); Macrocytosis Present (Not Present)
--- NOTE | 2018-06-01 10:45 | Internal Med Progress Note ---
<Cristine Nicholson - Last Filed: 06/01/18 17:11> Hospitalist Progress Note - Encounter Date of Encounter: 06/01/18 Time of Encounter: 08:50 - Subjective Interval History: Patient was seen and examined. No acute events overnight. Patient is sitting comfortably in bed. Patient states she feels bad. States shes having hard time breathing. Patient clarifies that she cant breath when she coughs. Reports sputum that is dark marigold in color with pink. She reports being nauseated every time she coughs. Patient states that pain is worse than when she was first admitted. States shes having pain everywhere. Reports pain level of 9 at this time, and pain level of 9 at admission. Patient reports swelling is worse than at time of admission. States that swelling was only in abdomen previously, and now its all over. She indicates there is swelling of her abdomen, hips, and legs. Patient reports diarrhea everyday that is loose and watery. Denies diarrhea today. Admits numbness/tingling in her feet. Denies fever, chills. - Exam Vitals: Temp Pulse Resp BP Pulse Ox 98.2 F 92 16 104/62 93 06/01/18 03:02 06/01/18 03:02 06/01/18 03:02 06/01/18 03:02 06/01/18 03:02 Exam: General: Alert and orientedx3. No acute distress. Obese. Skin: Jaundiced. Plaque psoriasis present diffusely. Ecchymoses. Head: Normocephalic, atraumatic. EENT: EOMI, pupils equal, round and reactive. Sclera icteric. Mucus membranes moist. No lesion. Cardiovascular: Normal S1 & S2, Pulse regular. Lungs: Clear to auscultation bilaterally. No wheeze or rhonchi. Abdomen: Soft, nondistended. Normal bowel sounds. Diffusely tender - no peritoneal signs. Extremities: 2+ pitting edema bilaterally. Neurological: Normal cognition and motor skills. No asterixis. - Assessment and Plan (1) Alcoholic hepatitis with ascites Current Visit: Yes Status: Acute Assessment and Plan: History of alcohol dependence. Ethanol level of 38 at admission. At admission, total bilirubin 17.0, AST 199, ALT 58, ALP 239, PT/INR 18.3/1.6. [facility]5 indicates high short-term mortality and benefit from steroid treatment. CT abd/pelvis showed hepatic steatosis with moderate ascites. Liver US could not visualize portal veins or middle hepatic vein. Remaining veins are patent with normal direction of flow. Status post diagnostic paracentesis on 05/27. Slowly improving. Continue prednisolone. GI consulted and following. (2) Jaundice Current Visit: Yes Status: Acute Assessment and Plan: At admission, total bilirubin 17.0, AST 199, ALT 58, ALP 239, PT/INR 18.3/1.6. Hepatitis screen negative. Improving. GI consulted and following. (3) Increased ammonia level Current Visit: Yes Status: Acute Assessment and Plan: Ammonia level elevated to 58 at admission. Today, ammonia is 109. No signs of encephalopathy. Increase lactulose from 10mg BID to 20mg BID. (4) Alcohol dependence Current Visit: Yes Status: Chronic Assessment and Plan: No signs of withdrawal. Ethanol level of 38 at admission. [facility] protocol in place. Social work consulted for alcohol abuse. (5) Anemia Current Visit: Yes Status: Suspected Assessment and Plan: Improved and stable. Macrocytic anemia. History of alcohol dependence and gastric bypass. Likely related to liver disease. B12 >1500. Folate result pending. (6) UTI (urinary tract infection) Current Visit: Yes Status: Resolved Assessment and Plan: Urine culture positive for E.coli, waller-sensitive. Ceftriaxone treatment completed 05/30. (7) Trichomoniasis of bladder Current Visit: Yes Status: Acute Assessment and Plan: Day 4 of flagyl. Continue through 06/04 for 7 day course. (8) Psoriasis Current Visit: Yes Status: Chronic Assessment and Plan: Betamethasone dipropionate cream. Outpatient followup. (9) Tobacco abuse Current Visit: Yes Status: Chronic Assessment and Plan: Nicoderm. Cessation counseling. (10) DVT prophylaxis Current Visit: Yes Status: Acute Assessment and Plan: Heparin stopped. Reassess as INR decreases. (11) Fluid overload Current Visit: Yes Status: Acute Assessment and Plan: Related to liver failure. CT abd/pelvis showed hepatic steatosis with moderate ascites. CXR showed left greater than right perihilar airspace disease, asymmetric edema vs multifocal infection. Continue Lasix and spironolactone. - Time Spent with Patient Total time spent is greater than 50% in coordination of care (as documented) at patient's floor/unit and/or counseling patient: Internal Medicine: Result - Labs CBC & Chem 7: 06/01/18 07:57 06/01/18 07:45 Labs: Short CBC 06/01/18 Range/Units 07:57 WBC 16.1 H (4.3-11.1) K/mcL Hgb 9.4 L (11.5-15.4) g/dL Hct 33.5 L (35.3-44.9) % Plt Count 127 L (140-400) K/mcL Neutrophils # 13.5 H (1.6-8.9) K/mcL BMP 06/01/18 07:45 Sodium 138 Potassium 3.0 L Chloride 104 Carbon Dioxide 23 BUN 8 Creatinine 0.98 Glucose 73 Calcium 8.6 Liver Function 06/01/18 Range/Units 07:45 Total Bilirubin 17.4 H (0.3-1.0) mg/dL AST 100 H (13-39) Units/L ALT 47 (7-52) Units/L Alkaline Phosphatase 148 H (34-104) Units/L Albumin 3.0 L (3.5-5.7) g/dL - ABG Interpretation ABG results: PT/INR, D-dimer PT 19.1 Seconds (9.4-12.1) H 06/01/18 07:57 Consult Discharge Plan - Plan Referrals: Sonny Velazco DO [Primary Care Provider] - Vern Valdez DO [Resident] - 06/04/18 3:00 pm Prescriptions: Furosemide [Lasix] 20 mg PO BIDDIURETIC #60 tab Spironolactone [Aldactone] 25 mg PO DAILY #30 tablet <Jonnathan Ly - Last Filed: 06/01/18 19:00> Hospitalist Progress Note - Encounter Date of Encounter: 06/01/18 - Exam Vitals: Temp Pulse Resp BP Pulse Ox 98.4 F 98 16 120/81 97 06/01/18 12:08 06/01/18 12:08 06/01/18 12:08 06/01/18 12:08 06/01/18 12:08 - Assessment and Plan (1) DVT prophylaxis Current Visit: Yes Status: Acute (2) Alcohol dependence Current Visit: Yes Status: Chronic (3) Psoriasis Current Visit: Yes Status: Chronic (4) Increased ammonia level Current Visit: Yes Status: Acute (5) Jaundice Current Visit: Yes Status: Acute (6) UTI (urinary tract infection) Current Visit: Yes Status: Resolved (7) Trichomoniasis of bladder Current Visit: Yes Status: Acute (8) Anemia Current Visit: Yes Status: Suspected (9) Alcoholic hepatitis with ascites Current Visit: Yes Status: Acute (10) Tobacco abuse Current Visit: Yes Status: Chronic (11) Fluid overload Current Visit: Yes Status: Acute - Time Spent with Patient Total time spent is greater than 50% in coordination of care (as documented) at patient's floor/unit and/or counseling patient: Internal Medicine: Result - Labs CBC & Chem 7: 06/01/18 07:57 06/01/18 07:45 Labs: Short CBC 06/01/18 Range/Units 07:57 WBC 16.1 H (4.3-11.1) K/mcL Hgb 9.4 L (11.5-15.4) g/dL Hct 33.5 L (35.3-44.9) % Plt Count 127 L (140-400) K/mcL Neutrophils # 13.5 H (1.6-8.9) K/mcL BMP 06/01/18 07:45 Sodium 138 Potassium 3.0 L Chloride 104 Carbon Dioxide 23 BUN 8 Creatinine 0.98 Glucose 73 Calcium 8.6 Liver Function 06/01/18 Range/Units 07:45 Total Bilirubin 17.4 H (0.3-1.0) mg/dL AST 100 H (13-39) Units/L ALT 47 (7-52) Units/L Alkaline Phosphatase 148 H (34-104) Units/L Albumin 3.0 L (3.5-5.7) g/dL - ABG Interpretation ABG results: PT/INR, D-dimer PT 19.1 Seconds (9.4-12.1) H 06/01/18 07:57 - Impressions Impressions Abdomen/Pelvis Ultrasound 06/01/18 09:00 IMPRESSION: Limited exam with nonvisualization of the segmental portal veins and middle hepatic vein. The remaining visualized veins are otherwise grossly patent with normal direction of flow. D/ / 06/01/2018 12:16:00 Hillary Grove MD / [facility] Interpreting Provider: Hillary Grove MD - Attending Attestation I examined this patient and my medical decision-making was reviewed with the Resident Physician on 06/01/18. I agree with the documented findings, disposition and treatment plan as described except to the extent set forth below. Ms Lynn is currently admitted for acute alcoholic hepatitis. She remains moderate to high risk due to potential for worsening clinical status. Ms Lynn is complaining of "pain all over." She is concerned about swelling. No fever or chills. No cough. Had liver duplex today. Exam alert Comfortable in bed Mucus membranes dry Heart reg No wheeze now Abd soft Edema present but appears overall better I/P 1. Acute alcoholic hepatitis 2. ETOH abuse Further diagnoses and plan as above <Cristine Nicholson - Last Filed: 06/01/18 17:11> (4) Alcohol dependence Qualifiers: Substance use status: other alcohol-induced disorder Qualified Code(s): F10.288 - Alcohol dependence with other alcohol-induced disorder (5) Anemia Qualifiers: Anemia type: B12 deficiency Vitamin B12 deficiency anemia type: other dietary B12 deficiency Qualified Code(s): D51.3 - Other dietary vitamin B12 deficiency anemia (6) UTI (urinary tract infection) Qualifiers: Urinary tract infection type: acute cystitis Hematuria presence: without hematuria Qualified Code(s): N30.00 - Acute cystitis without hematuria (11) Fluid overload Qualifiers: Hypervolemia type: other Qualified Code(s): E87.79 - Other fluid overload <Jonnathan Ly - Last Filed: 06/01/18 19:00> (2) Alcohol dependence Qualifiers: Substance use status: other alcohol-induced disorder Qualified Code(s): F10.288 - Alcohol dependence with other alcohol-induced disorder (6) UTI (urinary tract infection) Qualifiers: Urinary tract infection type: acute cystitis Hematuria presence: without hematuria Qualified Code(s): N30.00 - Acute cystitis without hematuria (8) Anemia Qualifiers: Anemia type: B12 deficiency Vitamin B12 deficiency anemia type: other dietary B12 deficiency Qualified Code(s): D51.3 - Other dietary vitamin B12 deficiency anemia (11) Fluid overload Qualifiers: Hypervolemia type: other Qualified Code(s): E87.79 - Other fluid overload
--- NOTE | 2018-06-01 12:51 | Discharge Summary ---
Orders not resulted at time of discharge: Pending orders 05/29/18 10:05 Haptoglobin Routine 05/31/18 02:57 Folate RBC Routine Date of Encounter: 06/01/18 - Discharge Diagnosis (1) Alcoholic hepatitis with ascites Priority: Primary Status: Acute (2) Fluid overload Priority: Primary Status: Acute Qualifiers: Hypervolemia type: other Qualified Code(s): E87.79 - Other fluid overload (3) Jaundice Priority: Secondary Status: Acute (4) Increased ammonia level Priority: Secondary Status: Acute (5) Alcohol dependence Priority: Secondary Status: Chronic Qualifiers: Substance use status: other alcohol-induced disorder Qualified Code(s): F10.288 - Alcohol dependence with other alcohol-induced disorder (6) UTI (urinary tract infection) Priority: Secondary Status: Resolved Qualifiers: Urinary tract infection type: acute cystitis Hematuria presence: without hematuria Qualified Code(s): N30.00 - Acute cystitis without hematuria (7) Trichomoniasis of bladder Priority: Secondary Status: Acute (8) Anemia Priority: Secondary Status: Suspected Qualifiers: Anemia type: B12 deficiency Vitamin B12 deficiency anemia type: other dietary B12 deficiency Qualified Code(s): D51.3 - Other dietary vitamin B12 deficiency anemia (9) Psoriasis Priority: Secondary Status: Chronic (10) Tobacco abuse Priority: Secondary Status: Chronic Hospital course: Ms. Lynn is a 43 year old female Discharge discussed with: patient Time spent discussing smoking cessation with patient: more than 10 minutes - Time Spent with Patient Total time spent providing and/or coordinating discharge services: Greater than 30 minutes - Discharge Medications Prescriptions: Furosemide [Lasix] 20 mg PO BIDDIURETIC #60 tab Spironolactone [Aldactone] 25 mg PO DAILY #30 tablet Home Medications: Albuterol Sulfate [Proair Hfa] 2 puff IH Q4-6H PRN 05/27/18 [History] Furosemide [Lasix] 20 mg PO BIDDIURETIC #60 tab 06/01/18 [Rx] Spironolactone [Aldactone] 25 mg PO DAILY #30 tablet 06/01/18 [Rx] Allergies/Adverse Reactions: 3 Allergy/AdvReac Type Severity Reaction Status Date / Time No Known Allergies Allergy Verified 05/27/18 08:03 Date of admission: 05/27/18 00:46 Primary care physician: Sonny Velazco DO Consults: 05/27/18 01:26 Consult to Gis Consultant [CONS] Routine Reason for SW Consult: ETOH abuse 05/27/18 03:20 Consult to Gastroenterology [CONS] Routine Consulting Provider: Gastroenterology Radha Reason for Consult: Obstructive jaundice, evaluation for ERCP Call Completed: Yes 05/29/18 09:49 dietary consult [Consult to Nutrition] [CONS] Routine Comment: Consulting Provider: NUTRITION Reason for Dietary Consult: PO Supplementation Discharging clinician: Cristine Nicholson Anticipated date of discharge: 06/01/18 - Constitutional Vitals: Temp Pulse Resp BP Pulse Ox 98.4 F 98 16 120/81 97 06/01/18 12:08 06/01/18 12:08 06/01/18 12:08 06/01/18 12:08 06/01/18 12:08 General appearance: Present: cooperative, A&O X 3, pleasant, no acute distress, answers questions appropriately - Patient Status Disposition: Home, Self-Care Condition: Good - Discharge Instructions Follow Up With: Sonny Velazco DO [Primary Care Provider] - Vern Valdez DO [Resident] - 06/04/18 3:00 pm - Diet and Activity Activity: resume usual activities as tolerated Diet: diabetic diet
[2018-06-01] MEDS: PrednisoLONE Oral Soln 15 MG/5 ML UDC PO SCH (13:04)
[2018-06-01] MEDS: Spironolactone 25 MG TABLET PO SCH ×2 (13:04→23:24)
[2018-06-01] MEDS: Lactulose Oral Soln 20 GM/30 ML UDC PO SCH ×2 (13:04→23:24)
[2018-06-01] MEDS: Benzonatate 100 MG CAPSULE PO PRN ×2 (13:16→20:33)
[2018-06-01 17:16] LABS: Hematocrit RBC Folate 30.7 %
[2018-06-02] MEDS: MetroNIDAZOLE 250 MG/50 ML 250 MG/50 ML BAG IVPB SCH ×2 (00:59→11:47)
[2018-06-02] MEDS: OXYCODONE Oral CONC 10 MG/0.5 ML ORAL.SYG SL PRN ×3 (00:59→22:22)
[2018-06-02] MEDS: Benzonatate 100 MG CAPSULE PO PRN ×2 (05:29→22:22)
[2018-06-02] MEDS: *HR* Phytonadione 10 MG/ML AMPUL SQ SCH (08:12)
[2018-06-02] MEDS: Spironolactone 25 MG TABLET PO SCH ×2 (08:12→22:22)
--- NOTE | 2018-06-02 08:12 | Internal Med Progress Note ---
<Cristine Nicholson - Last Filed: 06/02/18 15:44> Hospitalist Progress Note - Encounter Date of Encounter: 06/02/18 Time of Encounter: 08:30 - Subjective Interval History: Patient seen and examined. No acute events overnight. Patient is sitting comfortably in bed with her eyes closed. Patient states she feels ok" but is "tired" from not getting much sleep last night. She states that her breathing is fine as long as she has nasal cannula on. States that cough is better. Reports pain mostly on left side of body today that is 8/10. Patient indicates pain at hips, legs, abdomen, and chest. She states shes been urinating a lot. Reports had 20-24 bowel movements yesterday. Reports 3 bowel movements today. Admits sore throat from coughing fit last night. Denies dysphagia. - Exam Vitals: Temp Pulse Resp BP Pulse Ox 98.3 F 83 17 116/74 98 06/02/18 07:37 06/02/18 07:37 06/02/18 07:37 06/02/18 07:37 06/02/18 07:37 Exam: General: Alert and orientedx3. No acute distress. Obese. Skin: Jaundiced. Plaque psoriasis present diffusely. Ecchymoses. Head: Normocephalic, atraumatic. EENT: EOMI, pupils equal, round and reactive. Sclera icteric. Mucus membranes moist. White plaques noted on tongue and soft palate. Cardiovascular: Normal S1 & S2, Pulse regular. Lungs: Clear to auscultation bilaterally. No wheeze or rhonchi. Abdomen: Soft, nondistended. Normal bowel sounds. Diffusely tender - no peritoneal signs. Extremities: 2+ pitting edema bilaterally. Neurological: Normal cognition and motor skills. No asterixis. - Assessment and Plan (1) Alcoholic hepatitis with ascites Current Visit: Yes Status: Acute Assessment and Plan: History of alcohol dependence. Ethanol level of 38 at admission. At admission, total bilirubin 17.0, AST 199, ALT 58, ALP 239, PT/INR 18.3/1.6. Maddrey discriminant function of 45.5 indicates high short-term mortality and benefit from steroid treatment. CT abd/pelvis showed hepatic steatosis with moderate ascites. Liver US could not visualize portal veins or middle hepatic vein. Remaining veins are patent with normal direction of flow. Status post diagnostic paracentesis on 05/27. Continue prednisolone. GI consulted and following. (2) Fluid overload Current Visit: Yes Status: Acute Assessment and Plan: Related to liver failure. CT abd/pelvis showed hepatic steatosis with moderate ascites. CXR showed left greater than right perihilar airspace disease, asymmetric edema vs multifocal infection. Continue Lasix and spironolactone. (3) Jaundice Current Visit: Yes Status: Acute Assessment and Plan: At admission, total bilirubin 17.0, AST 199, ALT 58, ALP 239, PT/INR 18.3/1.6. Hepatitis screen negative. GI consulted and following. (4) Increased ammonia level Current Visit: Yes Status: Acute Assessment and Plan: Ammonia level elevated to 58 at admission. Today, ammonia is 110. No signs of encephalopathy. Increase lactulose from 20mg BID to 40mg BID. (5) Alcohol dependence Current Visit: Yes Status: Chronic Assessment and Plan: No signs of withdrawal. Ethanol level of 38 at admission. [facility] protocol in place. Social work consulted for alcohol abuse. (6) Hypokalemia Current Visit: Yes Status: Acute Assessment and Plan: Likely secondary to Lasix and diarrhea from lactulose. At admission, potassium 3.4. Yesterday, potassium 3.0. Today, potassium 2.5. Start KCl PO 40 BID. Closely monitor labs. (7) Anemia Current Visit: Yes Status: Suspected Assessment and Plan: Macrocytic anemia. History of alcohol dependence and gastric bypass. Likely related to liver disease. B12 >1500. Folate normal. MMA result pending Improving and stable. (8) UTI (urinary tract infection) Current Visit: Yes Status: Resolved Assessment and Plan: Urine culture positive for E.coli, waller-sensitive. Ceftriaxone treatment completed 05/30. (9) Trichomoniasis of bladder Current Visit: Yes Status: Acute Assessment and Plan: Day 5 of flagyl. Continue through 06/04 for 7 day course. (10) Psoriasis Current Visit: Yes Status: Chronic Assessment and Plan: Betamethasone dipropionate cream. Outpatient followup. (11) Tobacco abuse Current Visit: Yes Status: Chronic Assessment and Plan: Nicoderm. Cessation counseling. (12) DVT prophylaxis Current Visit: Yes Status: Acute Assessment and Plan: Heparin stopped. Reassess as INR decreases. (13) Oral candidiasis Current Visit: Yes Status: Acute Assessment and Plan: Oral thrush. No dysphagia. Check HIV. Start nystatin. - Time Spent with Patient Total time spent is greater than 50% in coordination of care (as documented) at patient's floor/unit and/or counseling patient: Internal Medicine: Result - Labs CBC & Chem 7: 06/02/18 08:36 06/02/18 08:36 Labs: Short CBC 06/01/18 Range/Units 07:57 WBC 16.1 H (4.3-11.1) K/mcL Hgb 9.4 L (11.5-15.4) g/dL Hct 33.5 L (35.3-44.9) % Plt Count 127 L (140-400) K/mcL Neutrophils # 13.5 H (1.6-8.9) K/mcL BMP 06/01/18 07:45 Sodium 138 Potassium 3.0 L Chloride 104 Carbon Dioxide 23 BUN 8 Creatinine 0.98 Glucose 73 Calcium 8.6 Liver Function 06/01/18 Range/Units 07:45 Total Bilirubin 17.4 H (0.3-1.0) mg/dL AST 100 H (13-39) Units/L ALT 47 (7-52) Units/L Alkaline Phosphatase 148 H (34-104) Units/L Albumin 3.0 L (3.5-5.7) g/dL - ABG Interpretation ABG results: PT/INR, D-dimer PT 19.1 Seconds (9.4-12.1) H 06/01/18 07:57 - Impressions Impressions Abdomen/Pelvis Ultrasound 06/01/18 09:00 IMPRESSION: Limited exam with nonvisualization of the segmental portal veins and middle hepatic vein. The remaining visualized veins are otherwise grossly patent with normal direction of flow. D/ / 06/01/2018 12:16:00 Hillary Grove [facility] Interpreting Provider: Hillary Grove MD Consult Discharge Plan - Plan Referrals: Sonny Velazco DO [Primary Care Provider] - eVrn Valdez DO [Resident] - 06/04/18 3:00 pm Prescriptions: Furosemide [Lasix] 20 mg PO BIDDIURETIC #60 tab Spironolactone [Aldactone] 25 mg PO DAILY #30 tablet <Miguel Calderón - Last Filed: 06/02/18 16:38> Hospitalist Progress Note - Encounter Date of Encounter: 06/02/18 - Exam Vitals: Temp Pulse Resp BP Pulse Ox 98.5 F 87 14 99/65 97 06/02/18 14:07 06/02/18 14:07 06/02/18 14:07 06/02/18 14:07 06/02/18 14:07 - Assessment and Plan (1) DVT prophylaxis Current Visit: Yes Status: Acute (2) Alcohol dependence Current Visit: Yes Status: Chronic (3) Psoriasis Current Visit: Yes Status: Chronic (4) Hypokalemia Current Visit: Yes Status: Acute (5) Increased ammonia level Current Visit: Yes Status: Acute (6) Jaundice Current Visit: Yes Status: Acute (7) UTI (urinary tract infection) Current Visit: Yes Status: Resolved (8) Trichomoniasis of bladder Current Visit: Yes Status: Acute (9) Anemia Current Visit: Yes Status: Suspected (10) Alcoholic hepatitis with ascites Current Visit: Yes Status: Acute (11) Tobacco abuse Current Visit: Yes Status: Chronic (12) Fluid overload Current Visit: Yes Status: Acute (13) Oral candidiasis Current Visit: Yes Status: Acute - Time Spent with Patient Total time spent is greater than 50% in coordination of care (as documented) at patient's floor/unit and/or counseling patient: Internal Medicine: Result - Labs CBC & Chem 7: 06/02/18 08:36 06/02/18 08:36 Labs: Short CBC 06/02/18 Range/Units 08:36 WBC 18.9 H (4.3-11.1) K/mcL Hgb 9.9 L (11.5-15.4) g/dL Hct 32.4 L (35.3-44.9) % Plt Count 145 (140-400) K/mcL Neutrophils # 14.8 H (1.6-8.9) K/mcL BMP 06/02/18 08:36 Sodium 141 Potassium 2.5 L* Chloride 106 Carbon Dioxide 25 BUN 9 Creatinine 1.00 Glucose 96 Calcium 8.6 Liver Function 06/02/18 Range/Units 08:36 Total Bilirubin 20.7 H (0.3-1.0) mg/dL AST 110 H (13-39) Units/L ALT 53 H (7-52) Units/L Alkaline Phosphatase 148 H (34-104) Units/L Albumin 3.3 L (3.5-5.7) g/dL - ABG Interpretation ABG results: PT/INR, D-dimer PT 19.4 Seconds (9.4-12.1) H 06/02/18 08:36 - Impressions Impressions Abdomen/Pelvis Ultrasound 06/01/18 09:00 IMPRESSION: Limited exam with nonvisualization of the segmental portal veins and middle hepatic vein. The remaining visualized veins are otherwise grossly patent with normal direction of flow. D/ / 06/01/2018 12:16:00 Hillary Grove MD / milli Interpreting Provider: Hillary Grove MD - Attending Attestation I performed an indepemdent in terview and exam of this pt. I agree with the findings, assessment and plan of Dr Nicholson internal medicine education intern. Pt states she feels better today. Continue Lasix and Aldactone. Lactulose (having loose stools, no encephalopathy). I had a long dicsussion w/ pt about importance of 100% ETOH cessation. Continue supportive care, steroids, increase activity. DC planning. Exam: Gen:pleasant and conversant Skin - Jaundice, psoriatic plaques Lungs - CTAB Ht RRR Abd - soft +BS, mild diffuse ttp Ext 2+ edema <Cristine Nicholson - Last Filed: 06/02/18 15:44> (2) Fluid overload Qualifiers: Hypervolemia type: other Qualified Code(s): E87.79 - Other fluid overload (5) Alcohol dependence Qualifiers: Substance use status: other alcohol-induced disorder Qualified Code(s): F10.288 - Alcohol dependence with other alcohol-induced disorder (7) Anemia Qualifiers: Anemia type: B12 deficiency Vitamin B12 deficiency anemia type: other dietary B12 deficiency Qualified Code(s): D51.3 - Other dietary vitamin B12 deficiency anemia (8) UTI (urinary tract infection) Qualifiers: Urinary tract infection type: acute cystitis Hematuria presence: without hematuria Qualified Code(s): N30.00 - Acute cystitis without hematuria <Miguel Calderón - Last Filed: 06/02/18 16:38> (2) Alcohol dependence Qualifiers: Substance use status: other alcohol-induced disorder Qualified Code(s): F10.288 - Alcohol dependence with other alcohol-induced disorder (7) UTI (urinary tract infection) Qualifiers: Urinary tract infection type: acute cystitis Hematuria presence: without hematuria Qualified Code(s): N30.00 - Acute cystitis without hematuria (9) Anemia Qualifiers: Anemia type: B12 deficiency Vitamin B12 deficiency anemia type: other dietary B12 deficiency Qualified Code(s): D51.3 - Other dietary vitamin B12 deficiency anemia (12) Fluid overload Qualifiers: Hypervolemia type: other Qualified Code(s): E87.79 - Other fluid overload
[2018-06-02] MEDS: Furosemide 20 MG/2 ML VIAL IVP SCH ×2 (08:13→16:21)
[2018-06-02] MEDS: Nicotine 21 MG PATCH.TD24 TD SCH (08:13)
[2018-06-02] MEDS: PrednisoLONE Oral Soln 15 MG/5 ML UDC PO SCH (08:15)
[2018-06-02] MEDS: Lactulose Oral Soln 20 GM/30 ML UDC PO SCH ×2 (08:15→22:23)
[2018-06-02 08:46] LABS: Basophils % 0.1 %; Eosinophils # 0.3 K/mcL (0.0-0.6); Eosinophils % 1.6 %; Hematocrit 32.4 % (35.3-44.9); Hemoglobin 9.9 g/dL (11.5-15.4); Immature Granulocytes % 1.2 % (0-4); Lymphocytes # 2.4 K/mcL (0.6-4.6); Lymphocytes % 12.8 %; Mean Corpuscular HGB Conc 30.6 g/dL (31.6-35.5); Mean Corpuscular Hemoglobin 32.9 pg (28.0-33.3); Mean Platelet Volume 11.5 fL (9.4-12.4); Monocytes # 1.2 K/mcL (0.0-1.3); Monocytes % 6.2 %; Neutrophils # 14.8 K/mcL (1.6-8.9); Nucleated Red Blood Cells 0.3 /100 WBC (0); Platelet Count 145 K/mcL (140-400); Red Blood Count 3.01 M/mcL (3.82-4.97); Red Cell Distribution Width 22.9 % (11.5-14.5); Segmented Neutrophils % 78.1 %
[2018-06-02 08:47] LABS: Mean Corpuscular Volume 107.6 fL (83.0-100.0)
[2018-06-02 08:51] LABS: INR 1.7; Prothrombin Time 19.4 Seconds (9.4-12.1)
[2018-06-02 09:18] LABS: Alanine Aminotransferase 53 Units/L (7-52); Albumin 3.3 g/dL (3.5-5.7); Albumin/Globulin Ratio 1.7 (1.1-2.2); Alkaline Phosphatase 148 Units/L (34-104); Aspartate Amino Transferase 110 Units/L (13-39); BUN/Creatinine Ratio 9 (6-26); Bilirubin,Total 20.7 mg/dL (0.3-1.0); Blood Urea Nitrogen 9 mg/dL (6-20); Calcium 8.6 mg/dL (8.6-10.3); Carbon Dioxide 25 mEq/L (23-29); Chloride 106 mEq/L (98-107); Globulin 1.9 g/dL (2.4-3.5); Glucose 96 mg/dL (70-105); Osmolality,Calculated 291 (280-300); Potassium 2.5 mEq/L (3.5-5.1); Sodium 141 mEq/L (136-145); Total Protein 5.2 g/dL (6.4-8.9); eGFR For Non-African Americans > 60 (> 60)
--- NOTE | 2018-06-02 09:38 | Event Note ---
Date of Encounter: 05/27/18 Time of Encounter: 13:00 I discussed the Procedure with both the patient and her Mother. The Resident performing the procedure had oversight with the Reji Resident. Procedure was performed without difficulty.
[2018-06-02] MEDS: Nystatin SUSP 5 ML UD.LIQ PO SCH ×2 (16:21→22:22)
[2018-06-02] MEDS: *HR* Promethazine 25 MG/ML VIAL IVP PRN (22:22)
[2018-06-03] MEDS: MetroNIDAZOLE 250 MG/50 ML 250 MG/50 ML BAG IVPB SCH ×2 (00:08→12:34)
[2018-06-03 03:27] LABS: Basophils % 0.1 %; Eosinophils # 0.4 K/mcL (0.0-0.6); Eosinophils % 2.2 %; Hematocrit 29.8 % (35.3-44.9); Hemoglobin 9.3 g/dL (11.5-15.4); Immature Granulocytes % 1.3 % (0-4); Lymphocytes # 2.7 K/mcL (0.6-4.6); Lymphocytes % 13.5 %; Mean Corpuscular HGB Conc 31.2 g/dL (31.6-35.5); Mean Corpuscular Hemoglobin 33.6 pg (28.0-33.3); Mean Corpuscular Volume 107.6 fL (83.0-100.0); Mean Platelet Volume 11.9 fL (9.4-12.4); Monocytes # 1.7 K/mcL (0.0-1.3); Monocytes % 8.4 %; Neutrophils # 14.6 K/mcL (1.6-8.9); Nucleated Red Blood Cells 0.2 /100 WBC (0); Platelet Count 114 K/mcL (140-400); Red Blood Count 2.77 M/mcL (3.82-4.97); Red Cell Distribution Width 22.4 % (11.5-14.5); Segmented Neutrophils % 74.5 %
[2018-06-03 03:33] LABS: INR 1.9; Prothrombin Time 20.9 Seconds (9.4-12.1)
[2018-06-03 03:56] LABS: Alanine Aminotransferase 47 Units/L (7-52); Albumin 2.7 g/dL (3.5-5.7); Albumin/Globulin Ratio 1.6 (1.1-2.2); Alkaline Phosphatase 115 Units/L (34-104); Aspartate Amino Transferase 94 Units/L (13-39); BUN/Creatinine Ratio 9 (6-26); Bilirubin,Total 17.7 mg/dL (0.3-1.0); Blood Urea Nitrogen 9 mg/dL (6-20); Calcium 7.7 mg/dL (8.6-10.3); Carbon Dioxide 24 mEq/L (23-29); Chloride 107 mEq/L (98-107); Globulin 1.7 g/dL (2.4-3.5); Glucose 91 mg/dL (70-105); Osmolality,Calculated 290 (280-300); Potassium 3.4 mEq/L (3.5-5.1); Sodium 141 mEq/L (136-145); Total Protein 4.4 g/dL (6.4-8.9); eGFR For Non-African Americans > 60 (> 60)
[2018-06-03] MEDS: OXYCODONE Oral CONC 10 MG/0.5 ML ORAL.SYG SL PRN ×3 (04:57→22:14)
[2018-06-03] MEDS: Furosemide 20 MG/2 ML VIAL IVP SCH ×2 (08:21→16:59)
[2018-06-03] MEDS: Nystatin SUSP 5 ML UD.LIQ PO SCH ×4 (10:14→22:14)
[2018-06-03] MEDS: PrednisoLONE Oral Soln 15 MG/5 ML UDC PO SCH (10:14)
[2018-06-03] MEDS: Lactulose Oral Soln 20 GM/30 ML UDC PO SCH ×2 (10:15→22:14)
[2018-06-03] MEDS: Nicotine 21 MG PATCH.TD24 TD SCH (10:16)
[2018-06-03] MEDS: Spironolactone 25 MG TABLET PO SCH ×2 (10:16→22:13)
--- NOTE | 2018-06-03 15:47 | Internal Med Progress Note ---
Hospitalist Progress Note - Encounter Date of Encounter: 06/03/18 Time of Encounter: 10:30 - Subjective Interval History: CC: weakness Patient states he started having abdominal discomfort. Feeling fatigued. She did remember she exerts herself. No nausea or vomiting. No fevers or chills. No chest pain. Other than above, a 10 point review of systems is negative with the exception of ongoing jaundice - Exam Vitals: Temp Pulse Resp BP Pulse Ox 98.3 F 98 16 102/62 93 06/03/18 15:08 06/03/18 15:08 06/03/18 15:08 06/03/18 15:08 06/03/18 15:08 Exam: General: Alert and orientedx3. No acute distress. Obese. Skin: Jaundiced. Plaque psoriasis present diffusely. Ecchymoses. Head: Normocephalic, atraumatic. EENT: EOMI, pupils equal, round and reactive. Sclera icteric. Mucus membranes moist. White plaques noted on tongue and soft palate. Cardiovascular: Normal S1 & S2, Pulse regular. Lungs: Clear to auscultation bilaterally. No wheeze or rhonchi. Abdomen: Soft, nondistended. Normal bowel sounds. Diffusely tender - no peritoneal signs. Extremities: 2+ pitting edema bilaterally. Neurological: Normal cognition and motor skills. No asterixis. - Assessment and Plan (1) Alcoholic hepatitis with ascites Current Visit: Yes Status: Acute Assessment and Plan: History of alcohol dependence. Ethanol level of 38 at admission. At admission, total bilirubin 17.0, AST 199, ALT 58, ALP 239, PT/INR 18.3/1.6. Maddrey discriminant function of 45.5 indicates high short-term mortality and benefit from steroid treatment. CT abd/pelvis showed hepatic steatosis with moderate ascites. Liver US could not visualize portal veins or middle hepatic vein. Remaining veins are patent with normal direction of flow. Status post diagnostic paracentesis on 05/27. Continue prednisolone. GI consulted and following. 06/03: I discussed the case with GI today. Awaiting further input. (2) DVT prophylaxis Current Visit: Yes Status: Acute Assessment and Plan: Heparin stopped. Reassess as INR decreases. 06/03: INR is 1.9 (3) Alcohol dependence Current Visit: Yes Status: Chronic Assessment and Plan: No signs of withdrawal. Ethanol level of 38 at admission. [facility] protocol in place. Social work consulted for alcohol abuse. (4) Psoriasis Current Visit: Yes Status: Chronic Assessment and Plan: Betamethasone dipropionate cream. Outpatient followup. (5) Hypokalemia Current Visit: Yes Status: Acute Assessment and Plan: Likely secondary to Lasix and diarrhea from lactulose. At admission, potassium 3.4. Yesterday, potassium 3.0. Today, potassium 2.5. Start KCl PO 40 BID. Closely monitor labs. 06/03: Improving. Monitor. Replace. (6) Increased ammonia level Current Visit: Yes Status: Acute Assessment and Plan: Ammonia level elevated to 58 at admission. Today, ammonia is 110. No signs of encephalopathy. Increase lactulose from 20mg BID to 40mg BID. (7) Jaundice Current Visit: Yes Status: Acute Assessment and Plan: At admission, total bilirubin 17.0, AST 199, ALT 58, ALP 239, PT/INR 18.3/1.6. Hepatitis screen negative. GI consulted and following. (8) UTI (urinary tract infection) Current Visit: Yes Status: Resolved Assessment and Plan: Urine culture positive for E.coli, waller-sensitive. Ceftriaxone treatment completed 05/30. (9) Trichomoniasis of bladder Current Visit: Yes Status: Acute Assessment and Plan: Day 6 of flagyl. Continue through 06/04 for 7 day course. (10) Anemia Current Visit: Yes Status: Suspected Assessment and Plan: Macrocytic anemia. History of alcohol dependence and gastric bypass. Likely related to liver disease. B12 >1500. Folate normal. MMA result pending Improving and stable. (11) Tobacco abuse Current Visit: Yes Status: Chronic (12) Fluid overload Current Visit: Yes Status: Acute (13) Oral candidiasis Current Visit: Yes Status: Acute - Time Spent with Patient Total time spent is greater than 50% in coordination of care (as documented) at patient's floor/unit and/or counseling patient: Internal Medicine: Result - Labs CBC & Chem 7: 06/03/18 02:33 06/03/18 02:33 Labs: Short CBC 06/03/18 Range/Units 02:33 WBC 19.7 H (4.3-11.1) K/mcL Hgb 9.3 L (11.5-15.4) g/dL Hct 29.8 L (35.3-44.9) % Plt Count 114 L (140-400) K/mcL Neutrophils # 14.6 H (1.6-8.9) K/mcL BMP 06/03/18 02:33 Sodium 141 Potassium 3.4 L D Chloride 107 Carbon Dioxide 24 BUN 9 Creatinine 0.97 Glucose 91 Calcium 7.7 L Liver Function 06/03/18 Range/Units 02:33 Total Bilirubin 17.7 H (0.3-1.0) mg/dL AST 94 H (13-39) Units/L ALT 47 (7-52) Units/L Alkaline Phosphatase 115 H (34-104) Units/L Albumin 2.7 L (3.5-5.7) g/dL - ABG Interpretation ABG results: PT/INR, D-dimer PT 20.9 Seconds (9.4-12.1) H 06/03/18 02:33 - Impressions Impressions Abdomen/Pelvis Ultrasound 06/01/18 09:00 IMPRESSION: Limited exam with nonvisualization of the segmental portal veins and middle hepatic vein. The remaining visualized veins are otherwise grossly patent with normal direction of flow. D/ / 06/01/2018 12:16:00 Hillary Grove MD / [facility]illi Interpreting Provider: Hillary Grove MD Consult Discharge Plan - Plan Referrals: Sonny Velazco DO [Primary Care Provider] - Vern Valdez DO [Resident] - 06/04/18 3:00 pm Prescriptions: Furosemide [Lasix] 20 mg PO BIDDIURETIC #60 tab Spironolactone [Aldactone] 25 mg PO DAILY #30 tablet (3) Alcohol dependence Qualifiers: Substance use status: other alcohol-induced disorder Qualified Code(s): F10.288 - Alcohol dependence with other alcohol-induced disorder (8) UTI (urinary tract infection) Qualifiers: Urinary tract infection type: acute cystitis Hematuria presence: without hematuria Qualified Code(s): N30.00 - Acute cystitis without hematuria (10) Anemia Qualifiers: Anemia type: B12 deficiency Vitamin B12 deficiency anemia type: other dietary B12 deficiency Qualified Code(s): D51.3 - Other dietary vitamin B12 deficiency anemia (12) Fluid overload Qualifiers: Hypervolemia type: other Qualified Code(s): E87.79 - Other fluid overload
[2018-06-04] MEDS: MetroNIDAZOLE 250 MG/50 ML 250 MG/50 ML BAG IVPB SCH ×2 (00:24→12:09)
[2018-06-04 05:33] LABS: Basophils % 0.1 %; Eosinophils # 0.4 K/mcL (0.0-0.6); Eosinophils % 2.5 %; Hematocrit 30.1 % (35.3-44.9); Immature Granulocytes % 1.2 % (0-4); Lymphocytes # 2.4 K/mcL (0.6-4.6); Lymphocytes % 15.1 %; Mean Corpuscular HGB Conc 29.9 g/dL (31.6-35.5); Mean Corpuscular Hemoglobin 32.5 pg (28.0-33.3); Mean Corpuscular Volume 108.7 fL (83.0-100.0); Mean Platelet Volume 11.6 fL (9.4-12.4); Monocytes # 1.6 K/mcL (0.0-1.3); Monocytes % 9.8 %; Neutrophils # 11.5 K/mcL (1.6-8.9); Nucleated Red Blood Cells 0.1 /100 WBC (0); Platelet Count 148 K/mcL (140-400); Red Blood Count 2.77 M/mcL (3.82-4.97); Segmented Neutrophils % 71.3 %
[2018-06-04 05:48] LABS: INR 1.8; Prothrombin Time 20.4 Seconds (9.4-12.1)
[2018-06-04 05:58] LABS: Alanine Aminotransferase 44 Units/L (7-52); Albumin 2.7 g/dL (3.5-5.7); Albumin/Globulin Ratio 1.4 (1.1-2.2); Alkaline Phosphatase 119 Units/L (34-104); Aspartate Amino Transferase 82 Units/L (13-39); BUN/Creatinine Ratio 11 (6-26); Blood Urea Nitrogen 8 mg/dL (6-20); Calcium 7.6 mg/dL (8.6-10.3); Carbon Dioxide 26 mEq/L (23-29); Chloride 104 mEq/L (98-107); Glucose 73 mg/dL (70-105); Osmolality,Calculated 287 (280-300); Potassium 2.9 mEq/L (3.5-5.1); Sodium 140 mEq/L (136-145); Total Protein 4.7 g/dL (6.4-8.9); eGFR For Non-African Americans > 60 (> 60)
--- NOTE | 2018-06-04 08:30 | Internal Med Progress Note ---
<Cristine Nicholson - Last Filed: 06/04/18 14:23> Hospitalist Progress Note - Encounter Date of Encounter: 06/04/18 Time of Encounter: 08:05 - Subjective Interval History: Patient seen and examined. No acute events overnight. Patient is sitting comfortably in bed. Patient states she feels ok but its impossible to sleep in hospital. Patient reports that she feels constipated but has been making regular bowel movements. She reports having made 20 watery bowel movements yesterday. And 3 loose bowel movements today. She states that her breathing is fine as long as she has nasal cannula on. States that cough is better. Today, reports pain mostly in abdomen, left leg, and left hip that is 7/ 10. Patient indicates swelling in same areas. She states shes been urinating normally without urinary symptoms. Denies fever, chills. Denies chest pain. Denies nausea/vomiting. Denies dysphagia. - Exam Vitals: Temp Pulse Resp BP Pulse Ox 97.5 F L 105 14 93/62 100 06/04/18 06:49 06/04/18 06:49 06/04/18 06:49 06/04/18 06:49 06/04/18 06:49 Exam: General: Alert and orientedx3. No acute distress. Obese. Skin: Jaundiced. Plaque psoriasis present diffusely. Ecchymoses. Head: Normocephalic, atraumatic. EENT: EOMI, pupils equal, round and reactive. Sclera icteric. Oral mucus membranes dry. No white plaques noted. Cardiovascular: Normal S1 & S2, Pulse regular. Lungs: Clear to auscultation bilaterally. No wheeze or rhonchi. Abdomen: Soft, nondistended. Normal bowel sounds. Diffusely tender - no peritoneal signs. Extremities: 1+ pitting edema bilaterally. Neurological: Normal cognition and motor skills. No asterixis. - Assessment and Plan (1) Alcoholic hepatitis with ascites Current Visit: Yes Status: Acute Assessment and Plan: History of alcohol dependence. Ethanol level of 38 at admission. At admission, total bilirubin 17.0, AST 199, ALT 58, ALP 239, PT/INR 18.3/1.6. At admission, Maddrey discriminant function of 45.5. Indicates high short-term mortality and benefit from steroid treatment. Today, total bili 18.0, AST 82, ALT 44, ALP 119, PT/INR 20.4/1.8. Today, discriminant function of 57. CT abd/pelvis showed hepatic steatosis with moderate ascites. Liver US could not visualize portal veins or middle hepatic vein. Remaining veins are patent with normal direction of flow. Status post diagnostic paracentesis on 05/27. Decrease steroid to prednisone 20mg for 7 more days, per GI. Then taper. GI consulted and following. (2) Fluid overload Current Visit: Yes Status: Acute Assessment and Plan: Related to liver failure. CT abd/pelvis showed hepatic steatosis with moderate ascites. CXR showed left greater than right perihilar airspace disease, asymmetric edema vs multifocal infection. Improved. Continue Lasix and spironolactone. Monitor for electrolyte abnormalities. (3) Jaundice Current Visit: Yes Status: Acute Assessment and Plan: At admission, total bilirubin 17.0, AST 199, ALT 58, ALP 239, PT/INR 18.3/1.6. Hepatitis screen negative. GI consulted and following. (4) Increased ammonia level Current Visit: Yes Status: Acute Assessment and Plan: Ammonia level elevated to 58 at admission. Today, ammonia is 82. No signs of encephalopathy. Continue lactulose 40mg BID. (5) Alcohol dependence Current Visit: Yes Status: Chronic Assessment and Plan: No signs of withdrawal. Ethanol level of 38 at admission. [facility] protocol in place. Social work consulted for alcohol abuse. Counseled on alcohol cessation. (6) Hypokalemia Current Visit: Yes Status: Acute Assessment and Plan: Likely secondary to Lasix and diarrhea from lactulose. At admission, potassium 3.4. Today, potassium 2.9. Continue KCl PO 40 BID. Will provide extra dose of KCl 40. Closely monitor labs. (7) Anemia Current Visit: Yes Status: Suspected Assessment and Plan: Macrocytic anemia. History of alcohol dependence and gastric bypass. Likely related to liver disease. B12 >1500. Folate normal. MMA result pending. (8) UTI (urinary tract infection) Current Visit: Yes Status: Resolved Assessment and Plan: Urine culture positive for E.coli, waller-sensitive. Ceftriaxone treatment completed 05/30. (9) Trichomoniasis of bladder Current Visit: Yes Status: Acute Assessment and Plan: Day 7 of flagyl. Discontinue after today. (10) Psoriasis Current Visit: Yes Status: Chronic Assessment and Plan: Betamethasone dipropionate cream. Outpatient followup. (11) Tobacco abuse Current Visit: Yes Status: Chronic Assessment and Plan: Nicoderm. Cessation counseling. (12) DVT prophylaxis Current Visit: Yes Status: Acute Assessment and Plan: Heparin stopped. Reassess as INR decreases. (13) Oral candidiasis Current Visit: Yes Status: Acute - Time Spent with Patient Total time spent is greater than 50% in coordination of care (as documented) at patient's floor/unit and/or counseling patient: Internal Medicine: Result - Labs CBC & Chem 7: 06/04/18 05:21 06/04/18 05:21 Labs: Short CBC 06/04/18 Range/Units 05:21 WBC 16.2 H (4.3-11.1) K/mcL Hgb 9.0 L (11.5-15.4) g/dL Hct 30.1 L (35.3-44.9) % Plt Count 148 (140-400) K/mcL Neutrophils # 11.5 H (1.6-8.9) K/mcL BMP 06/04/18 05:21 Sodium 140 Potassium 2.9 L Chloride 104 Carbon Dioxide 26 BUN 8 Creatinine 0.71 Glucose 73 Calcium 7.6 L Liver Function 06/04/18 Range/Units 05:21 Total Bilirubin 18.0 H (0.3-1.0) mg/dL AST 82 H (13-39) Units/L ALT 44 (7-52) Units/L Alkaline Phosphatase 119 H (34-104) Units/L Albumin 2.7 L (3.5-5.7) g/dL - ABG Interpretation ABG results: PT/INR, D-dimer PT 20.4 Seconds (9.4-12.1) H 06/04/18 05:21 Consult Discharge Plan - Plan Referrals: Sonny Velazco DO [Primary Care Provider] - Vern Valdez DO [Resident] - 06/04/18 3:00 pm Prescriptions: Furosemide [Lasix] 20 mg PO BIDDIURETIC #60 tab Spironolactone [Aldactone] 25 mg PO DAILY #30 tablet <Miguel Calderón - Last Filed: 06/04/18 14:35> Hospitalist Progress Note - Encounter Date of Encounter: 06/04/18 - Exam Vitals: Temp Pulse Resp BP Pulse Ox 98.3 F 89 14 101/70 99 06/04/18 14:13 06/04/18 14:13 06/04/18 14:13 06/04/18 14:13 06/04/18 14:13 - Assessment and Plan (1) DVT prophylaxis Current Visit: Yes Status: Acute (2) Alcohol dependence Current Visit: Yes Status: Chronic (3) Psoriasis Current Visit: Yes Status: Chronic (4) Hypokalemia Current Visit: Yes Status: Acute (5) Increased ammonia level Current Visit: Yes Status: Acute (6) Jaundice Current Visit: Yes Status: Acute (7) UTI (urinary tract infection) Current Visit: Yes Status: Resolved (8) Trichomoniasis of bladder Current Visit: Yes Status: Acute (9) Anemia Current Visit: Yes Status: Suspected (10) Alcoholic hepatitis with ascites Current Visit: Yes Status: Acute (11) Tobacco abuse Current Visit: Yes Status: Chronic (12) Fluid overload Current Visit: Yes Status: Acute (13) Oral candidiasis Current Visit: Yes Status: Acute - Time Spent with Patient Total time spent is greater than 50% in coordination of care (as documented) at patient's floor/unit and/or counseling patient: Internal Medicine: Result - Labs CBC & Chem 7: 06/04/18 05:21 06/04/18 05:21 Labs: Short CBC 06/04/18 Range/Units 05:21 WBC 16.2 H (4.3-11.1) K/mcL Hgb 9.0 L (11.5-15.4) g/dL Hct 30.1 L (35.3-44.9) % Plt Count 148 (140-400) K/mcL Neutrophils # 11.5 H (1.6-8.9) K/mcL BMP 06/04/18 05:21 Sodium 140 Potassium 2.9 L Chloride 104 Carbon Dioxide 26 BUN 8 Creatinine 0.71 Glucose 73 Calcium 7.6 L Liver Function 06/04/18 Range/Units 05:21 Total Bilirubin 18.0 H (0.3-1.0) mg/dL AST 82 H (13-39) Units/L ALT 44 (7-52) Units/L Alkaline Phosphatase 119 H (34-104) Units/L Albumin 2.7 L (3.5-5.7) g/dL - ABG Interpretation ABG results: PT/INR, D-dimer PT 20.4 Seconds (9.4-12.1) H 06/04/18 05:21 - Attending Attestation I performed an independent interview and exam of this pt. I agree with the findings, assessment and plan of Dr. Nicholson, IM internal grinder set up operator. GI input is noted and appreciated. They prefer to keep the patient in the hospital for a few more days given the severity of her liver failure. She continues to have abdominal discomfort. She is tolerating her diuretics. We will continue to closely monitor. Gen: NAD Skin: Jaundiced Lung CTAB Ht RRR Abd - soft +BS, diffuse ttp Ext tr edema Neuro nonfocal <Cristine Nicholson - Last Filed: 06/04/18 14:23> (2) Fluid overload Qualifiers: Hypervolemia type: other Qualified Code(s): E87.79 - Other fluid overload (5) Alcohol dependence Qualifiers: Substance use status: other alcohol-induced disorder Qualified Code(s): F10.288 - Alcohol dependence with other alcohol-induced disorder (7) Anemia Qualifiers: Anemia type: B12 deficiency Vitamin B12 deficiency anemia type: other dietary B12 deficiency Qualified Code(s): D51.3 - Other dietary vitamin B12 deficiency anemia (8) UTI (urinary tract infection) Qualifiers: Urinary tract infection type: acute cystitis Hematuria presence: without hematuria Qualified Code(s): N30.00 - Acute cystitis without hematuria <Miguel Calderón - Last Filed: 06/04/18 14:35> (2) Alcohol dependence Qualifiers: Substance use status: other alcohol-induced disorder Qualified Code(s): F10.288 - Alcohol dependence with other alcohol-induced disorder (7) UTI (urinary tract infection) Qualifiers: Urinary tract infection type: acute cystitis Hematuria presence: without hematuria Qualified Code(s): N30.00 - Acute cystitis without hematuria (9) Anemia Qualifiers: Anemia type: B12 deficiency Vitamin B12 deficiency anemia type: other dietary B12 deficiency Qualified Code(s): D51.3 - Other dietary vitamin B12 deficiency anemia (12) Fluid overload Qualifiers: Hypervolemia type: other Qualified Code(s): E87.79 - Other fluid overload
[2018-06-04] MEDS: Nicotine 21 MG PATCH.TD24 TD SCH (08:41)
[2018-06-04] MEDS: Furosemide 20 MG/2 ML VIAL IVP SCH ×2 (08:42→17:10)
[2018-06-04] MEDS: Lactulose Oral Soln 20 GM/30 ML UDC PO SCH ×2 (08:42→22:43)
[2018-06-04] MEDS: PrednisoLONE Oral Soln 15 MG/5 ML UDC PO SCH (08:42)
[2018-06-04] MEDS: Nystatin SUSP 5 ML UD.LIQ PO SCH ×4 (08:42→22:43)
[2018-06-04] MEDS: Spironolactone 25 MG TABLET PO SCH ×2 (08:42→22:43)
[2018-06-04] MEDS: OXYCODONE Oral CONC 10 MG/0.5 ML ORAL.SYG SL PRN ×2 (09:58→22:52)
--- NOTE | 2018-06-04 11:28 | Gastroenterology Progress Note ---
<Jacqueline Haq - Last Filed: 06/04/18 13:52> Date of Encounter: 06/04/18 Time of Encounter: 11:00 - Assessment and plan (1) Alcoholic hepatitis with ascites Status: Acute Assessment and plan: Alcoholic hepatitis with ascites which caused acute liver injury. ETOH at admission 38. -Today patient is alert and oriented x3. She is improved. Denied abdominal pain , fever, chills, puritis, change in vision. -PT 20.4 INR 1.8 -Bili 18 Alk phos 119 -AST 82 ALT 44 -Ammonia 82 -Maddrey discriminant function of 56.6 -CT abd/pelvis showed hepatic steatosis with moderate ascites -Liver US could not visualize portal veins or middle hepatic vein. Remaining veins are patent with normal direction of flow. -S/p diagnostic paracentesis on 05/27. Completed treatment of SBP. Plan: -Recommend decrease prednisone to 20mg for 7 days then do a prednisone taper. Recommend keeping patient for a couple more days to monitor progress. -will plan to follow up in office a week after discharge at the beginning of the steroid taper -continue lactulose (2) Increased ammonia level Status: Acute Assessment and plan: Elevated ammonia level likely secondary to acute hepatitis. Ammonia 82 (94) improved -continue lactulose (3) Jaundice Status: Acute Assessment and plan: Jaundice secondary to acute alcoholic hepatitis. Patient has bilateral scleral icterus and jaundice. Denies puritis. -continue lactulose -will continue to monitor (4) Alcohol dependence Status: Chronic Assessment and plan: Patient has history of alcohol abuse however after conversation today with the patient she stated that she has quit drinking alcohol and she plans to continue her sobriety upon discharge. It was encouraged her to join in Alcoholics Anonymous group to help maintain her sobriety. -[place] protocol -nutrition consulted for appropriate calorie counts -social work consulted for alcoholism Qualifiers: Substance use status: other alcohol-induced disorder Qualified Code(s): F10.288 - Alcohol dependence with other alcohol-induced disorder - Time Spent With Patient Total time spent is greater than 50% in coordination of care (as documented) at patient's floor/unit and/or counseling patient: - Subjective Interval history: Patient seen and examined at bedside is alert and oriented times 3. She complains of fatigue due to lack of sleep. She denies puritis, nausea, vomiting , abdominal pain, melena, hematechezia, dark urine, tamica colored stool. She is tolerating oral diet well. She has no other complaints. - Constitutional Vitals: Temp Pulse Resp BP Pulse Ox 97.4 F L 107 14 111/80 99 06/04/18 09:56 06/04/18 09:56 06/04/18 09:56 06/04/18 09:56 06/04/18 09:56 Exam: Gen.: Vitals noted. No acute distress. AAOx3 HEENT: bilateral scleral icterus, jaundiced, oropharynx clear, Normocephalic, atraumatic Neck: Supple. No adenopathy. Cardiac: RRR, no murmur, +S1/S2 Pulmonary: CTA bilaterally, no wheezes, rales or rhonchi, equal chest expansion Abdomen: soft, nontender, Bowel sounds noted, no guarding MSK: ROM intact, no joint swelling noted Neuro: A&Ox3, moves all extremities, no focal deficits Psych: Appropriate mood and behavior Results - Labs CBC & Chem 7: 06/04/18 05:21 06/04/18 05:21 Labs: Last Result Calcium 7.6 mg/dL (8.6-10.3) L 06/04/18 05:21 Triglycerides 256 mg/dL (< 150) H 05/27/18 03:23 Vitamin B12 > 1500 pg/mL (250-1100) H 05/31/18 02:57 Peritoneal Appearance CLEAR (Clear) 05/27/18 11:15 Peritoneal Volume 14.0 mL 05/27/18 11:15 Peritoneal RBC < 0.002 M/mcL (0.000-0.002) 05/27/18 11:15 Periton Tot Nuc Cells 48 TNC/mcL (0-300) 05/27/18 11:15 Periton Band Neuts TNP 05/27/18 11:15 Periton Lymphocytes % 25.0 % 05/27/18 11:15 Periton Monocytes % 6.3 % 05/27/18 11:15 Periton Other Cells % TNP 05/27/18 11:15 Peritoneal Tot Protein < 3.0 g/dL (No Ref Range) 05/27/18 11:15 Peritoneal LDH 42 Units/L (No Ref Range) 05/27/18 11:15 Peritoneal Glucose 109 mg/dL (No Ref Range) 05/27/18 11:15 Peritoneal Amylase < 10 Units/L (No Ref Range) 05/27/18 11:15 Entire Visit Hgb 9.0 g/dL (11.5-15.4) L 06/04/18 05:21 Hct 30.1 % (35.3-44.9) L 06/04/18 05:21 Haptoglobin 50 mg/dL (30-200) 05/29/18 10:05 PT 20.4 Seconds (9.4-12.1) H 06/04/18 05:21 Total Bilirubin 18.0 mg/dL (0.3-1.0) H 06/04/18 05:21 AST 82 Units/L (13-39) H 06/04/18 05:21 ALT 44 Units/L (7-52) 06/04/18 05:21 Ammonia 82 mcmol/L (16-53) H 06/04/18 05:21 Amylase 20 Units/L (29-103) L 05/28/18 03:20 Lipase 69 Units/L (11-82) 05/28/18 03:20 - ABG ABG results: PT/INR, D-dimer PT 20.4 Seconds (9.4-12.1) H 06/04/18 05:21 Consult Discharge Plan - Plan Instructions: Ascites (DC), Jaundice (DC) Referrals: Felix Padgett MD [Partnered Physician] - Sonny Velazco DO [Primary Care Provider] - Vern Valdez DO [Resident] - 06/04/18 3:00 pm Prescriptions: Albuterol Sulfate [Proair Hfa] 2 puff IH Q4-6H PRN 30 Days #1 hfa.aer.[id number] PRN Reason: Shortness Of Breath Furosemide [Lasix] 40 mg PO BIDDIURETIC 30 Days #60 tablet HydrOXYzine 10 mg PO HS PRN 30 Days #30 tablet PRN Reason: Insomnia Lactulose 40 gm PO BID 30 Days #60 udc Omeprazole [PriLOSEC] 20 mg PO BIDAC 30 Days #60 capsule.dr Potassium Chloride 40 meq PO BID 30 Days #60 tab.er.prt predniSONE [PredniSONE] 20 mg PO DAILY 14 Days #14 tablet Spironolactone [Aldactone] 25 mg PO DAILY #30 tablet Spironolactone [Aldactone] 25 mg PO BID 30 Days #60 tablet <Felix Padgett - Last Filed: 06/08/18 00:43> Date of Encounter: 06/04/18 - Time Spent With Patient Total time spent is greater than 50% in coordination of care (as documented) at patient's floor/unit and/or counseling patient: - Constitutional Vitals: Temp Pulse Resp BP Pulse Ox 97.4 F L 104 16 107/74 100 06/07/18 07:14 06/07/18 07:14 06/07/18 07:14 06/07/18 07:14 06/07/18 07:14 Results - Labs CBC & Chem 7: 06/07/18 04:54 06/07/18 04:54 Labs: Last Result Calcium 7.9 mg/dL (8.6-10.3) L 06/07/18 04:54 Triglycerides 256 mg/dL (< 150) H 05/27/18 03:23 Vitamin B12 > 1500 pg/mL (250-1100) H 05/31/18 02:57 Peritoneal Appearance CLEAR (Clear) 05/27/18 11:15 Peritoneal Volume 14.0 mL 05/27/18 11:15 Peritoneal RBC < 0.002 M/mcL (0.000-0.002) 05/27/18 11:15 Periton Tot Nuc Cells 48 TNC/mcL (0-300) 05/27/18 11:15 Periton Band Neuts TNP 05/27/18 11:15 Periton Lymphocytes % 25.0 % 05/27/18 11:15 Periton Monocytes % 6.3 % 05/27/18 11:15 Periton Other Cells % TNP 05/27/18 11:15 Peritoneal Tot Protein < 3.0 g/dL (No Ref Range) 05/27/18 11:15 Peritoneal LDH 42 Units/L (No Ref Range) 05/27/18 11:15 Peritoneal Glucose 109 mg/dL (No Ref Range) 05/27/18 11:15 Peritoneal Amylase < 10 Units/L (No Ref Range) 05/27/18 11:15 Entire Visit Hgb 10.2 g/dL (11.5-15.4) L 06/07/18 04:54 Hct 34.1 % (35.3-44.9) L 06/07/18 04:54 Haptoglobin 50 mg/dL (30-200) 05/29/18 10:05 PT 19.7 Seconds (9.4-12.1) H 06/05/18 05:01 Total Bilirubin 18.0 mg/dL (0.3-1.0) H 06/07/18 04:54 AST 89 Units/L (13-39) H 06/07/18 04:54 ALT 41 Units/L (7-52) 06/07/18 04:54 Ammonia 134 mcmol/L (16-53) H 06/05/18 05:01 Amylase 20 Units/L (29-103) L 05/28/18 03:20 Lipase 69 Units/L (11-82) 05/28/18 03:20 - ABG ABG results: PT/INR, D-dimer PT 19.7 Seconds (9.4-12.1) H 06/05/18 05:01 - Attending Attestation Agree moderately severe alcoholic hepatitis who is finally making a turn for the better. Agree with above. Close monitoring. I examined this patient and my medical decision-making was reviewed with the Resident Physician. I agree with the documented findings, disposition and treatment plan as described except to the extent set forth below.
[2018-06-04] MEDS: Benzonatate 100 MG CAPSULE PO PRN (22:40)
[2018-06-04] MEDS: Ondansetron 4 MG/2 ML VIAL IVP PRN (22:52)
[2018-06-05 05:33] LABS: Alanine Aminotransferase 45 Units/L (7-52); Albumin 2.8 g/dL (3.5-5.7); Albumin/Globulin Ratio 1.4 (1.1-2.2); Alkaline Phosphatase 118 Units/L (34-104); Aspartate Amino Transferase 80 Units/L (13-39); BUN/Creatinine Ratio 13 (6-26); Bilirubin,Total 18.7 mg/dL (0.3-1.0); Blood Urea Nitrogen 9 mg/dL (6-20); Calcium 7.6 mg/dL (8.6-10.3); Carbon Dioxide 26 mEq/L (23-29); Chloride 105 mEq/L (98-107); Glucose 86 mg/dL (70-105); Osmolality,Calculated 286 (280-300); Potassium 3.4 mEq/L (3.5-5.1); Sodium 139 mEq/L (136-145); Total Protein 4.8 g/dL (6.4-8.9); eGFR For Non-African Americans > 60 (> 60)
[2018-06-05 05:40] LABS: INR 1.7; Prothrombin Time 19.7 Seconds (9.4-12.1)
[2018-06-05 06:13] LABS: Basophils % 0.1 %; Eosinophils # 0.3 K/mcL (0.0-0.6); Eosinophils % 1.9 %; Hematocrit 31.1 % (35.3-44.9); Hemoglobin 9.3 g/dL (11.5-15.4); Immature Granulocytes % 1.6 % (0-4); Lymphocytes # 2.5 K/mcL (0.6-4.6); Lymphocytes % 14.7 %; Mean Corpuscular HGB Conc 29.9 g/dL (31.6-35.5); Mean Corpuscular Hemoglobin 32.5 pg (28.0-33.3); Mean Corpuscular Volume 108.7 fL (83.0-100.0); Mean Platelet Volume 11.3 fL (9.4-12.4); Monocytes # 1.8 K/mcL (0.0-1.3); Monocytes % 10.4 %; Neutrophils # 12.2 K/mcL (1.6-8.9); Platelet Count 140 K/mcL (140-400); Red Blood Count 2.86 M/mcL (3.82-4.97); Red Cell Distribution Width 21.9 % (11.5-14.5); Segmented Neutrophils % 71.3 %
[2018-06-05] MEDS: Furosemide 20 MG/2 ML VIAL IVP SCH ×2 (07:30→16:33)
[2018-06-05] MEDS: Nystatin SUSP 5 ML UD.LIQ PO SCH ×4 (07:30→19:57)
[2018-06-05] MEDS: Nicotine 21 MG PATCH.TD24 TD SCH (07:30)
[2018-06-05] MEDS: Lactulose Oral Soln 20 GM/30 ML UDC PO SCH ×2 (07:30→19:56)
[2018-06-05] MEDS: Spironolactone 25 MG TABLET PO SCH ×2 (07:31→19:57)
[2018-06-05] MEDS: predniSONE 20 MG TABLET PO SCH (07:31)
--- NOTE | 2018-06-05 08:18 | Internal Med Progress Note ---
<Cristine Nicholson - Last Filed: 06/05/18 10:06> Hospitalist Progress Note - Encounter Date of Encounter: 06/05/18 Time of Encounter: 07:55 - Subjective Interval History: Patient seen and examined. No acute events overnight. Patient is sitting comfortably in bed. Patient states she feels ok. States that parts of her feel great and others parts are still miserable. Today, pain level is 5/10. Reports felt nauseous last night, relieved with anti-nausea medicine. States breathing is fine as long as she has nasal cannula on. States that cough is better, productive of yellow and clear sputum. Patient states swelling is better in calves and unchanged in left thigh and hip. Denies fever, chills. Denies chest pain. Denies nausea/vomiting. Denies dysphagia. - Exam Vitals: Temp Pulse Resp BP Pulse Ox 98.9 F 94 16 104/70 100 06/05/18 07:12 06/05/18 07:12 06/05/18 07:12 06/05/18 07:12 06/05/18 07:44 Exam: General: Alert and orientedx3. No acute distress. Obese. Skin: Jaundiced. Plaque psoriasis present diffusely. Ecchymoses. Head: Normocephalic, atraumatic. EENT: EOMI, pupils equal, round and reactive. Sclera icteric. Oral mucus membranes dry. No white plaques noted. Cardiovascular: Normal S1 & S2, Pulse regular. Lungs: Clear to auscultation bilaterally. No wheeze or rhonchi. Abdomen: Soft, nondistended. Normal bowel sounds. Diffusely tender - no peritoneal signs. Extremities: 1+ pitting edema bilaterally. Neurological: Normal cognition and motor skills. No asterixis. - Assessment and Plan (1) Alcoholic hepatitis with ascites Current Visit: Yes Status: Acute Assessment and Plan: History of alcohol dependence. Ethanol level of 38 at admission. At admission, total bilirubin 17.0, AST 199, ALT 58, ALP 239, PT/INR 18.3/1.6. At admission, Maddrey discriminant function of 45.5. Indicates high short-term mortality and benefit from steroid treatment. Today, total bili 18.7, AST 80, ALT 45, ALP 118, PT/INR 19.7/1.7. CT abd/pelvis showed hepatic steatosis with moderate ascites. Liver US could not visualize portal veins or middle hepatic vein. Remaining veins are patent with normal direction of flow. Status post diagnostic paracentesis on 05/27. Decreased steroid to prednisone 20mg - day 2. Continue through 06/10, then taper. Per GI. GI consulted and following. (2) Fluid overload Current Visit: Yes Status: Acute Assessment and Plan: Related to liver failure. CT abd/pelvis showed hepatic steatosis with moderate ascites. CXR showed left greater than right perihilar airspace disease, asymmetric edema vs multifocal infection. Improved. Continue Lasix and spironolactone. Monitor for electrolyte abnormalities. (3) Jaundice Current Visit: Yes Status: Acute Assessment and Plan: At admission, total bilirubin 17.0, AST 199, ALT 58, ALP 239, PT/INR 18.3/1.6. Hepatitis screen negative. GI consulted and following. (4) Increased ammonia level Current Visit: Yes Status: Acute Assessment and Plan: Ammonia level elevated to 58 at admission. Today, ammonia is 134. No signs of encephalopathy. Continue lactulose 40mg BID. (5) Alcohol dependence Current Visit: Yes Status: Chronic Assessment and Plan: No signs of withdrawal. Ethanol level of 38 at admission. [facility] protocol in place. Social work consulted for alcohol abuse. Counseled on alcohol cessation. (6) Hypokalemia Current Visit: Yes Status: Acute Assessment and Plan: At admission, potassium 3.4. Today, potassium 3.4. Continue KCl PO 40 BID. Closely monitor labs. (7) Anemia Current Visit: Yes Status: Suspected Assessment and Plan: Macrocytic anemia. History of alcohol dependence and gastric bypass. Likely related to liver disease. B12 >1500. Folate normal. MMA normal. Improving. (8) UTI (urinary tract infection) Current Visit: Yes Status: Resolved Assessment and Plan: Urine culture positive for E.coli, waller-sensitive. Ceftriaxone treatment completed 05/30. (9) Trichomoniasis of bladder Current Visit: Yes Status: Acute Assessment and Plan: Flagyl treatment completed 06/04. (10) Psoriasis Current Visit: Yes Status: Chronic Assessment and Plan: Betamethasone dipropionate cream. Outpatient followup. (11) Tobacco abuse Current Visit: Yes Status: Chronic Assessment and Plan: Nicoderm. Cessation counseling. (12) DVT prophylaxis Current Visit: Yes Status: Acute Assessment and Plan: Heparin stopped. Reassess as INR decreases. On SCD. (13) Oral candidiasis Current Visit: Yes Status: Acute Assessment and Plan: Likely secondary to steroids. No dysphagia. Check HIV. Day 4 of nystatin. Continue through 06/08 for 7 day course. Resolved. - Time Spent with Patient Total time spent is greater than 50% in coordination of care (as documented) at patient's floor/unit and/or counseling patient: Internal Medicine: Result - Labs CBC & Chem 7: 06/05/18 05:57 06/05/18 05:01 Labs: Short CBC 06/05/18 Range/Units 05:57 WBC 17.1 H (4.3-11.1) K/mcL Hgb 9.3 L (11.5-15.4) g/dL Hct 31.1 L (35.3-44.9) % Plt Count 140 (140-400) K/mcL Neutrophils # 12.2 H (1.6-8.9) K/mcL BMP 06/05/18 05:01 Sodium 139 Potassium 3.4 L Chloride 105 Carbon Dioxide 26 BUN 9 Creatinine 0.72 Glucose 86 Calcium 7.6 L Liver Function 06/05/18 Range/Units 05:01 Total Bilirubin 18.7 H (0.3-1.0) mg/dL AST 80 H (13-39) Units/L ALT 45 (7-52) Units/L Alkaline Phosphatase 118 H (34-104) Units/L Albumin 2.8 L (3.5-5.7) g/dL - ABG Interpretation ABG results: PT/INR, D-dimer PT 19.7 Seconds (9.4-12.1) H 06/05/18 05:01 Consult Discharge Plan - Plan Referrals: Felix Padgett MD [Partnered Physician] - Sonny Velazco DO [Primary Care Provider] - Vern Valdez DO [Resident] - 06/04/18 3:00 pm Prescriptions: Furosemide [Lasix] 20 mg PO BIDDIURETIC #60 tab Spironolactone [Aldactone] 25 mg PO DAILY #30 tablet <Miguel Calderón - Last Filed: 06/05/18 16:27> Hospitalist Progress Note - Encounter Date of Encounter: 06/05/18 - Exam Vitals: Temp Pulse Resp BP Pulse Ox 98.3 F 91 12 88/59 99 06/05/18 10:09 06/05/18 10:09 06/05/18 10:09 06/05/18 10:06/05/18 10:09 - Assessment and Plan (1) DVT prophylaxis Current Visit: Yes Status: Acute (2) Alcohol dependence Current Visit: Yes Status: Chronic (3) Psoriasis Current Visit: Yes Status: Chronic (4) Hypokalemia Current Visit: Yes Status: Acute (5) Increased ammonia level Current Visit: Yes Status: Acute (6) Jaundice Current Visit: Yes Status: Acute (7) UTI (urinary tract infection) Current Visit: Yes Status: Resolved (8) Trichomoniasis of bladder Current Visit: Yes Status: Acute (9) Anemia Current Visit: Yes Status: Suspected (10) Alcoholic hepatitis with ascites Current Visit: Yes Status: Acute (11) Tobacco abuse Current Visit: Yes Status: Chronic (12) Fluid overload Current Visit: Yes Status: Acute (13) Oral candidiasis Current Visit: Yes Status: Acute - Time Spent with Patient Total time spent is greater than 50% in coordination of care (as documented) at patient's floor/unit and/or counseling patient: Internal Medicine: Result - Labs CBC & Chem 7: 06/05/18 05:57 06/05/18 05:01 Labs: Short CBC 06/05/18 Range/Units 05:57 WBC 17.1 H (4.3-11.1) K/mcL Hgb 9.3 L (11.5-15.4) g/dL Hct 31.1 L (35.3-44.9) % Plt Count 140 (140-400) K/mcL Neutrophils # 12.2 H (1.6-8.9) K/mcL BMP 06/05/18 05:01 Sodium 139 Potassium 3.4 L Chloride 105 Carbon Dioxide 26 BUN 9 Creatinine 0.72 Glucose 86 Calcium 7.6 L Liver Function 06/05/18 Range/Units 05:01 Total Bilirubin 18.7 H (0.3-1.0) mg/dL AST 80 H (13-39) Units/L ALT 45 (7-52) Units/L Alkaline Phosphatase 118 H (34-104) Units/L Albumin 2.8 L (3.5-5.7) g/dL - ABG Interpretation ABG results: PT/INR, D-dimer PT 19.7 Seconds (9.4-12.1) H 06/05/18 05:01 - Attending Attestation I performed an independent interview and exam of this pt. I agree wiht the findings, assessment and plan of Dr. Nicholson internal medicine resident. beeue with supportive care. Will stop daily labs and check next Liver panel in 2 days as pt is becoming difficult blood draw. Exam: Gen: NAD, AAOx3 Skin Warm, dry, jaundiced Lung - CTAB Ht RRR Abd Soft +BS, diffuse ttp Ext 1+ edema Neuro non focal <Cristine Nicholson - Last Filed: 06/05/18 10:06> (2) Fluid overload Qualifiers: Hypervolemia type: other Qualified Code(s): E87.79 - Other fluid overload (5) Alcohol dependence Qualifiers: Substance use status: other alcohol-induced disorder Qualified Code(s): F10.288 - Alcohol dependence with other alcohol-induced disorder (7) Anemia Qualifiers: Anemia type: B12 deficiency Vitamin B12 deficiency anemia type: other dietary B12 deficiency Qualified Code(s): D51.3 - Other dietary vitamin B12 deficiency anemia (8) UTI (urinary tract infection) Qualifiers: Urinary tract infection type: acute cystitis Hematuria presence: without hematuria Qualified Code(s): N30.00 - Acute cystitis without hematuria <Miguel Calderón - Last Filed: 06/05/18 16:27> (2) Alcohol dependence Qualifiers: Substance use status: other alcohol-induced disorder Qualified Code(s): F10.288 - Alcohol dependence with other alcohol-induced disorder (7) UTI (urinary tract infection) Qualifiers: Urinary tract infection type: acute cystitis Hematuria presence: without hematuria Qualified Code(s): N30.00 - Acute cystitis without hematuria (9) Anemia Qualifiers: Anemia type: B12 deficiency Vitamin B12 deficiency anemia type: other dietary B12 deficiency Qualified Code(s): D51.3 - Other dietary vitamin B12 deficiency anemia (12) Fluid overload Qualifiers: Hypervolemia type: other Qualified Code(s): E87.79 - Other fluid overload
[2018-06-05] MEDS: OXYCODONE Oral CONC 10 MG/0.5 ML ORAL.SYG SL PRN (19:57)
[2018-06-05] MEDS: Ondansetron 4 MG/2 ML VIAL IVP PRN (20:03)
[2018-06-06] MEDS: Nicotine 21 MG PATCH.TD24 TD SCH (08:44)
[2018-06-06] MEDS: Spironolactone 25 MG TABLET PO SCH ×2 (08:45→21:42)
[2018-06-06] MEDS: predniSONE 20 MG TABLET PO SCH (08:45)
[2018-06-06] MEDS: Nystatin SUSP 5 ML UD.LIQ PO SCH ×4 (08:45→21:43)
[2018-06-06] MEDS: Lactulose Oral Soln 20 GM/30 ML UDC PO SCH ×2 (08:45→21:42)
[2018-06-06] MEDS: Furosemide 20 MG/2 ML VIAL IVP SCH ×2 (08:45→16:38)
--- NOTE | 2018-06-06 10:23 | Internal Med Progress Note ---
Hospitalist Progress Note - Encounter Date of Encounter: 06/06/18 Time of Encounter: 09:00 - Subjective Interval History: CC: weakness Patient states he started having abdominal discomfort. Feeling fatigued. She did remember she exerts herself. No nausea or vomiting. No fevers or chills. No chest pain. 06/06: Patient states he feels much better today. Abdominal pain is improved. She is tolerating a good diet. No chest pain or shortness of breath. Strength is improved. Other than above, a 10 point review of systems is negative with the exception of ongoing jaundice - Exam Vitals: Temp Pulse Resp BP Pulse Ox 98.8 F 118 16 139/93 99 06/06/18 10:13 06/06/18 10:13 06/06/18 10:13 06/06/18 10:13 06/06/18 10:13 Exam: General: Alert and orientedx3. No acute distress. Obese. Skin: Jaundiced. Plaque psoriasis present diffusely. Ecchymoses. Head: Normocephalic, atraumatic. EENT: EOMI, pupils equal, round and reactive. Sclera icteric. Oral mucus membranes dry. No white plaques noted. Cardiovascular: Normal S1 & S2, Pulse regular. Lungs: Clear to auscultation bilaterally. No wheeze or rhonchi. Abdomen: Soft, nondistended. Normal bowel sounds. Diffusely tender - no peritoneal signs. (Abdomen is less tender today.) Extremities: 1+ pitting edema bilaterally. Neurological: Normal cognition and motor skills. No asterixis. - Assessment and Plan (1) Alcoholic hepatitis with ascites Current Visit: Yes Status: Acute Assessment and Plan: History of alcohol dependence. Ethanol level of 38 at admission. At admission, total bilirubin 17.0, AST 199, ALT 58, ALP 239, PT/INR 18.3/1.6. At admission, Maddrey discriminant function of 45.5. Indicates high short-term mortality and benefit from steroid treatment. Today, total bili 18.7, AST 80, ALT 45, ALP 118, PT/INR 19.7/1.7. CT abd/pelvis showed hepatic steatosis with moderate ascites. Liver US could not visualize portal veins or middle hepatic vein. Remaining veins are patent with normal direction of flow. Status post diagnostic paracentesis on 05/27. Decreased steroid to prednisone 20mg - day 2. Continue through 06/10, then taper. Per GI. GI consulted and following. 06/06: Continue supportive care. We did not order blood today. We will recheck a pro time tomorrow. Anticipate discharge home soon on prednisone 20 mg daily as outlined by gastroenterology. Will need close follow-up. (2) DVT prophylaxis Current Visit: Yes Status: Acute Assessment and Plan: Heparin stopped. Reassess as INR decreases. On SCD. (3) Alcohol dependence Current Visit: Yes Status: Chronic Assessment and Plan: No signs of withdrawal. Ethanol level of 38 at admission. [facility] protocol in place. Social work consulted for alcohol abuse. Counseled on alcohol cessation. (4) Psoriasis Current Visit: Yes Status: Chronic Assessment and Plan: Betamethasone dipropionate cream. Outpatient followup. (5) Hypokalemia Current Visit: Yes Status: Acute Assessment and Plan: At admission, potassium 3.4. Today, potassium 3.4. Continue KCl PO 40 BID. Closely monitor labs. (6) Increased ammonia level Current Visit: Yes Status: Acute Assessment and Plan: Ammonia level elevated to 58 at admission. Today, ammonia is 134. No signs of encephalopathy. Continue lactulose 40mg BID. 06/06: No encephalopathy (7) Jaundice Current Visit: Yes Status: Acute Assessment and Plan: At admission, total bilirubin 17.0, AST 199, ALT 58, ALP 239, PT/INR 18.3/1.6. Hepatitis screen negative. GI consulted and following. 06/06: Continue to monitor. (8) UTI (urinary tract infection) Current Visit: Yes Status: Resolved Assessment and Plan: Urine culture positive for E.coli, waller-sensitive. Ceftriaxone treatment completed 05/30. (9) Trichomoniasis of bladder Current Visit: Yes Status: Acute Assessment and Plan: Flagyl treatment completed 06/04. (10) Anemia Current Visit: Yes Status: Suspected Assessment and Plan: Macrocytic anemia. History of alcohol dependence and gastric bypass. Likely related to liver disease. B12 >1500. Folate normal. MMA normal. Improving. (11) Tobacco abuse Current Visit: Yes Status: Chronic Assessment and Plan: Nicoderm. Cessation counseling. (12) Fluid overload Current Visit: Yes Status: Acute Assessment and Plan: Related to liver failure. CT abd/pelvis showed hepatic steatosis with moderate ascites. CXR showed left greater than right perihilar airspace disease, asymmetric edema vs multifocal infection. Improved. Continue Lasix and spironolactone. Monitor for electrolyte abnormalities. 06/06: Improved. Current medications. Monitor. (13) Oral candidiasis Current Visit: Yes Status: Acute Assessment and Plan: Likely secondary to steroids. No dysphagia. Check HIV. Day 4 of nystatin. Continue through 06/08 for 7 day course. Resolved. - Time Spent with Patient Total time spent is greater than 50% in coordination of care (as documented) at patient's floor/unit and/or counseling patient: 25 - 35 minutes Internal Medicine: Result - Labs CBC & Chem 7: 06/05/18 05:57 06/05/18 05:01 - ABG Interpretation ABG results: PT/INR, D-dimer PT 19.7 Seconds (9.4-12.1) H 06/05/18 05:01 Consult Discharge Plan - Plan Referrals: Felix Padgett MD [Partnered Physician] - Sonny Velazco DO [Primary Care Provider] - Vern Valdez DO [Resident] - 06/04/18 3:00 pm Prescriptions: Furosemide [Lasix] 20 mg PO BIDDIURETIC #60 tab Spironolactone [Aldactone] 25 mg PO DAILY #30 tablet (3) Alcohol dependence Qualifiers: Substance use status: other alcohol-induced disorder Qualified Code(s): F10.288 - Alcohol dependence with other alcohol-induced disorder (8) UTI (urinary tract infection) Qualifiers: Urinary tract infection type: acute cystitis Hematuria presence: without hematuria Qualified Code(s): N30.00 - Acute cystitis without hematuria (10) Anemia Qualifiers: Anemia type: B12 deficiency Vitamin B12 deficiency anemia type: other dietary B12 deficiency Qualified Code(s): D51.3 - Other dietary vitamin B12 deficiency anemia (12) Fluid overload Qualifiers: Hypervolemia type: other Qualified Code(s): E87.79 - Other fluid overload
[2018-06-06] MEDS: OXYCODONE Oral CONC 10 MG/0.5 ML ORAL.SYG SL PRN ×2 (12:00→21:43)
[2018-06-07 05:15] LABS: Basophils % 0.1 %; Eosinophils # 0.3 K/mcL (0.0-0.6); Eosinophils % 1.4 %; Hematocrit 34.1 % (35.3-44.9); Hemoglobin 10.2 g/dL (11.5-15.4); Immature Granulocytes % 1.6 % (0-4); Lymphocytes # 3.3 K/mcL (0.6-4.6); Lymphocytes % 16.5 %; Mean Corpuscular HGB Conc 29.9 g/dL (31.6-35.5); Mean Corpuscular Hemoglobin 32.4 pg (28.0-33.3); Mean Corpuscular Volume 108.3 fL (83.0-100.0); Mean Platelet Volume 12.2 fL (9.4-12.4); Monocytes # 1.6 K/mcL (0.0-1.3); Monocytes % 8.1 %; Neutrophils # 14.5 K/mcL (1.6-8.9); Platelet Count 158 K/mcL (140-400); Red Blood Count 3.15 M/mcL (3.82-4.97); Red Cell Distribution Width 21.7 % (11.5-14.5); Segmented Neutrophils % 72.3 %
[2018-06-07 05:47] LABS: Alanine Aminotransferase 41 Units/L (7-52); Albumin 2.9 g/dL (3.5-5.7); Albumin/Globulin Ratio 1.2 (1.1-2.2); Alkaline Phosphatase 128 Units/L (34-104); Aspartate Amino Transferase 89 Units/L (13-39); BUN/Creatinine Ratio 16 (6-26); Blood Urea Nitrogen 11 mg/dL (6-20); Calcium 7.9 mg/dL (8.6-10.3); Carbon Dioxide 29 mEq/L (23-29); Chloride 103 mEq/L (98-107); Globulin 2.5 g/dL (2.4-3.5); Glucose 72 mg/dL (70-105); Osmolality,Calculated 282 (280-300); Potassium 3.3 mEq/L (3.5-5.1); Sodium 137 mEq/L (136-145); Total Protein 5.4 g/dL (6.4-8.9); eGFR For Non-African Americans > 60 (> 60)
[2018-06-07 07:15] VITALS: BP 107/74
[2018-06-07] MEDS: Nicotine 21 MG PATCH.TD24 TD SCH (07:58)
[2018-06-07] MEDS: Furosemide 20 MG/2 ML VIAL IVP SCH (07:58)
[2018-06-07] MEDS: Spironolactone 25 MG TABLET PO SCH (07:58)
[2018-06-07] MEDS: Nystatin SUSP 5 ML UD.LIQ PO SCH (07:59)
[2018-06-07] MEDS: predniSONE 20 MG TABLET PO SCH (07:59)
[2018-06-07] MEDS: Lactulose Oral Soln 20 GM/30 ML UDC PO SCH (07:59)
--- NOTE | 2018-06-07 10:36 | Discharge Summary ---
- NOTES TO OUTPATIENT PROVIDER Notes to Outpatient Provider: She needs to follow-up with gastroenterology week. She will continue on prednisone 20 mg daily for the next 7 days for acute alcoholic hepatitis with liver failure Orders not resulted at time of discharge: Pending orders 06/02/18 14:20 HIV Qualitative PCR(Detection) Routine Date of Encounter: 06/07/18 Time of Encounter: 10:00 - Discharge Diagnosis (1) Alcoholic hepatitis with ascites Priority: Primary Status: Acute (2) DVT prophylaxis Priority: Secondary Status: Acute (3) Alcohol dependence Priority: Secondary Status: Chronic Qualifiers: Substance use status: other alcohol-induced disorder Qualified Code(s): F10.288 - Alcohol dependence with other alcohol-induced disorder (4) Psoriasis Priority: Secondary Status: Chronic (5) Hypokalemia Priority: Secondary Status: Acute (6) Increased ammonia level Priority: Secondary Status: Acute (7) Jaundice Priority: Secondary Status: Acute (8) UTI (urinary tract infection) Priority: Secondary Status: Resolved Qualifiers: Urinary tract infection type: acute cystitis Hematuria presence: without hematuria Qualified Code(s): N30.00 - Acute cystitis without hematuria (9) Trichomoniasis of bladder Priority: Secondary Status: Acute (10) Anemia Priority: Secondary Status: Suspected Qualifiers: Anemia type: B12 deficiency Vitamin B12 deficiency anemia type: other dietary B12 deficiency Qualified Code(s): D51.3 - Other dietary vitamin B12 deficiency anemia (11) Tobacco abuse Priority: Secondary Status: Chronic (12) Fluid overload Priority: Secondary Status: Acute Qualifiers: Hypervolemia type: other Qualified Code(s): E87.79 - Other fluid overload (13) Oral candidiasis Priority: Secondary Status: Acute Hospital course: Ms. Lynn is a 43 year old female with a PMH of gastric bypass surgery, TROY, psoriasis, alcohol withdrawal seizures, alcohol dependence, and tobacco dependence who presented to the ED c/o diffuse abdominal pain, nausea, and vomiting for the past 3 days. Abdominal pain is worse with movement, breathing, and food and liquid intake. Patient reports decreased urination and constipation due to lack of hydration. Associated symptoms include abdominal distension, itching, productive cough with clear phelgm, subjective fevers, and lightheadedness. Family reports increasing jaundiced for the past 3 months. Patient denies hematauria, hematachezia, diarrhea, greasy stools, or change in mental status. She is on house arrest and reports having an alcohol withdrawal seizure one month ago after she was arrested for drunk driving and hitting a mailbox. Patient is reports usually drinking 1-2 glasses of liquor daily and her last drink was this morning. Patient's mother reported finding a gallon bottle of vodka in her daughter's purse while the patient was having her RUQ ultrasound performed, which was removed by security. Hopsital Course: Patient was treated for acute alcoholic hepatitis with liver failure. On arrival patient's discriminate factor was 29.4, MELD - Sodium score of 24, Child Hernandez class III. Patient remained in hospital from May through 06/06. On admission patient was noted to have a white count of 21.9. Hemoglobin 12.7. Count 96,000. INR was 1.4 but has varied in level throughout her admission, hovering in the 1.7-1.9 range primarily. Liver function tests were significant for persistently elevated total bilirubin, currently 18 on day of discharge which has been fairly stable throughout admission. Albumin in the 2.7-2.9 range. Ammonia level has been persistently elevated in the 80s to low 100 range. She was started on steroids 60 mg IV Solu-Medrol daily for liver failure due to alcoholic hepatitis. She is now transitioned to prednisone 20 mg daily for an additional 7 days She also was started on Aldactone as well as Lasix for ascites. She did have a diagnostic paracentesis which was not convincing for SBP, but given the severity of her symptoms she did receive full treatment for SBP. Initially treated with Zosyn, then changed to Rocephin. Cultures came back negative. She also was noted to have Trichomonas in her urine. She was treated with a seven-day course of Flagyl. CT abdomen/pelvis demonstrated hepatic steatosis, splenic calcifications, and a moderately distended gallbladder. Bile duct was noted to be dilated at 16.79mm as measured on imaging. Gallbladder ultrasound revealed fatty liver vs. diffuse hepatocellular disease with RUQ ascites and no evidence of acute cholecystitis. The pancreas was not visualized. Patient underwent diagnostic paracentesis on May 27. She had 69 neutrophils. Total protein less than 3. LDH 42. Glucose 109. Amylase less than 10. Approximately 60 hours of fluid was removed. Patient improved clinically, although her liver numbers did not significantly changed throughout this admission. She remained in the hospital for several additional days for observation but appeared to be stabilizing. I am discharge she was doing well, tolerating a diet. She was having loose stools from actual spondylolysis. As per gastroenterology recommendation she will continue on prednisone 20 mg for 7 days then taper. She will follow-up with gastroenterology prior to completion of the steroids. She will also have repeat function studies and CBC in 2-3 days. She was advised to return immediately should she have any problems including confusion, fevers, worsening abdominal discomfort or swelling or any other problems. Disposition on discharge is stable but guarded. Was advised to avoid all Tylenol products and avoid NSAIDs. She was also counseled to continue 100% alcohol avoidance. Is recommended that she see a substance abuse counselor for treatment. Also recommended that she quit smoking. 40 minutes spent on discharge and coordination of care. Discharge discussed with: patient Time spent discussing smoking cessation with patient: 3 to 10 minutes - Time Spent with Patient Total time spent providing and/or coordinating discharge services: Greater than 30 minutes (40 min) - Discharge Medications Prescriptions: RX: Albuterol Sulfate [Proair Hfa] 2 puff IH Q4-6H PRN 30 Days #1 hfa.aer.ad PRN Reason: Shortness Of Breath RX: Furosemide [Lasix] 40 mg PO BIDDIURETIC 30 Days #60 tablet RX: HydrOXYzine 10 mg PO HS PRN 30 Days #30 tablet PRN Reason: Insomnia RX: Lactulose 40 gm PO BID 30 Days #60 udc RX: Omeprazole [PriLOSEC] 20 mg PO BIDAC 30 Days #60 capsule.dr RX: Potassium Chloride 40 meq PO BID 30 Days #60 tab.er.prt RX: predniSONE [PredniSONE] 20 mg PO DAILY 14 Days #14 tablet RX: Spironolactone [Aldactone] 25 mg PO DAILY #30 tablet RX: Spironolactone [Aldactone] 25 mg PO BID 30 Days #60 tablet Home Medications: RX: Spironolactone [Aldactone] 25 mg PO DAILY #30 tablet 06/01/18 [Rx] RX: Albuterol Sulfate [Proair Hfa] 2 puff IH Q4-6H PRN 30 Days #1 hfa.aer.ad [Rx] RX: Furosemide [Lasix] 40 mg PO BIDDIURETIC 30 Days #60 tablet 06/07/18 [Rx] RX: HydrOXYzine 10 mg PO HS PRN 30 Days #30 tablet 06/07/18 [Rx] RX: Lactulose 40 gm PO BID 30 Days #60 udc 06/07/18 [Rx] RX: Omeprazole [PriLOSEC] 20 mg PO BIDAC 30 Days #60 capsule.dr 06/07/18 [Rx] RX: Potassium Chloride 40 meq PO BID 30 Days #60 tab.er.prt 06/07/18 [Rx] RX: Spironolactone [Aldactone] 25 mg PO BID 30 Days #60 tablet 06/07/18 [Rx] RX: predniSONE [PredniSONE] 20 mg PO DAILY 14 Days #14 tablet 06/07/18 [Rx] Allergies/Adverse Reactions: 3 Allergy/AdvReac Type Severity Reaction Status Date / Time No Known Allergies Allergy Verified 05/27/18 08:03 Date of admission: 05/27/18 00:46 Primary care physician: Sonny Velazco DO Consults: 05/27/18 01:26 Consult to [employer] [CONS] Routine Reason for SW Consult: ETOH abuse 05/27/18 03:20 Consult to Gastroenterology [CONS] Routine Consulting Provider: [facility] [place] Reason for Consult: Obstructive jaundice, evaluation for ERCP Call Completed: Yes 05/29/18 09:49 dietary consult [Consult to Nutrition] [CONS] Routine Comment: Consulting Provider: NUTRITION Reason for Dietary Consult: PO Supplementation Discharging clinician: Miguel Calderón Anticipated date of discharge: 06/07/18 - Constitutional Vitals: Temp Pulse Resp BP Pulse Ox 97.4 F L 104 16 107/74 100 06/07/18 07:14 06/07/18 07:14 06/07/18 07:14 06/07/18 07:14 06/07/18 07:14 General appearance: Present: cooperative, A&O X 3, pleasant, no acute distress, answers questions appropriately Exam: General: Alert and orientedx3. No acute distress. Obese. Skin: Jaundiced. Plaque psoriasis present diffusely. Ecchymoses. Head: Normocephalic, atraumatic. EENT: EOMI, pupils equal, round and reactive. Sclera icteric. Oral mucus membranes dry. No white plaques noted. Cardiovascular: Normal S1 & S2, Pulse regular. Lungs: Clear to auscultation bilaterally. No wheeze or rhonchi. Abdomen: Soft, nondistended. Normal bowel sounds. Diffusely tender - no peritoneal signs. (Abdomen is less tender today.) Extremities: 1+ pitting edema bilaterally. Neurological: Normal cognition and motor skills. No asterixis. - Patient Status Disposition: Home, Self-Care Condition: Good - Discharge Instructions Follow Up With: Felix Padgett MD [Partnered Physician] - Sonny Velazco DO [Primary Care Provider] - Vern Valdez DO [Resident] - 06/04/18 3:00 pm
[2018-06-07] MEDS ORDERED: Furosemide 40 MG TABLET PO SCH (17:00)
== END 2018-06-07 16:19 | disposition home or self-care (01) | DRG 872 ==
LOC: 2NNU 18:56 → EMEROOARM 18:56 → SUATTDRO 05-27 00:46 → OBSVTOIN 05-27 00:46 → 2NNU 05-27 02:00 → 3ANU 05-29 16:27
PROVIDERS: ADMIT Internal Medicine Cardiovascular Disease; ATTEND Internal Medicine